=== PATIENT | female | born 1955 | race African-American/Black ===

== ENCOUNTER 2016-06-02 04:46 | Outpatient (CLI) ==
[2016-05-27 08:15] VITALS: BMI 28.4
== END 2016-06-02 04:47 ==
LOC: AMBL 04:46
PROVIDERS: ATTEND Emergency Medicine
DX: R06.02 Shortness of breath (principal); E11.9 Type 2 diabetes mellitus without complications; I10 Essential (primary) hypertension; I50.9 Heart failure, unspecified

== ENCOUNTER 2016-06-22 12:23 | Outpatient (RCR) ==
[2016-05-27 08:15] VITALS: BMI 28.4
[2016-06-22 13:11] VITALS: BP 128/62
== END 2016-06-28 ==
LOC: PUL.REHAB 12:23
PROVIDERS: ATTEND Physician Assistant
DX: R06.02 Shortness of breath (principal)

== ENCOUNTER 2016-06-29 07:34 | Outpatient (RCR) ==
[2016-05-27 08:15] VITALS: BMI 28.4
[2016-07-20 10:40] VITALS: BP 128/60
== END 2016-07-26 ==
LOC: PUL.REHAB 07:34
PROVIDERS: ATTEND Physician Assistant
DX: R06.02 Shortness of breath (principal)

== ENCOUNTER 2016-07-03 01:47 | Inpatient (IN) ==
[2016-07-03] MEDS ORDERED: LASIX IVP STA (01:49)
[2016-07-03] MEDS ORDERED: XOPENEX 1.25 MG NEB STA (01:50)
[2016-07-03 02:02] LABS: BASOPHILS # (AUTO) 0.1 K/uL (0-0.2); EOSINOPHILS # (AUTO) 0.1 K/ul (0.0-0.7); EOSINOPHILS % (AUTO) 2.1 % (0.0-7.0); HEMATOCRIT 39.3 % (37.0-47.0); HEMOGLOBIN 13.1 g/dl (12.0-16.0); IMMATURE GRANULOCYTE % (AUTO) 0.3 % (0.0-5.0); LYMPHOCYTES # (AUTO) 2.6 K/uL (0.60-3.4); MEAN CORPUSCULAR HEMOGLOBIN 28.7 pg (27.0-31.0); MEAN CORPUSCULAR HGB CONC 33.3 (31.8-35.4); MONOCYTES # (AUTO) 0.4 K/uL (0.4-2.0); MONOCYTES % (AUTO) 6.7 (0-10); NEUTROPHILS # (AUTO) 2.9 K/ul (2.0-6.9); NEUTROPHILS % (AUTO) 47.9; PLATELET COUNT 240 10^3/uL (140-440); RED BLOOD COUNT 4.57 10^6/ul (4.20-5.40)
[2016-07-03 02:12] VITALS: BMI 29.8
[2016-07-03 02:21] LABS: ABG PCO2 30.8 mmHg (35-45); ABG PH 7.48 (7.35-7.45)
[2016-07-03 02:22] LABS: ABG BASE EXCESS -1 (-2.0-2.0); ABG HCO3 22.9 (22.0-26.0); ABG TCO2 24 (22.0-28.0)
[2016-07-03 02:39] LABS: ALBUMIN 3.8 g/dL (3.4-5.0); ALBUMIN/GLOBULIN RATIO 1.15; ANION GAP 16.5; BILIRUBIN,TOTAL 0.98 mg/dL (0.00-1.20); BUN/CREATININE RATIO 26.19; CALCIUM 9.3 mg/dL (8.2-10.2); CREATININE 0.84 mg/dL (0.60-1.30); POTASSIUM 3.5 mmol/L (3.5-5.10); TOTAL PROTEIN 7.1 g/dL (6.4-8.2); TROPONIN I 0.058 ng/ml (0.0000-0.4000)
[2016-07-03 02:40] LABS: CREATINE KINASE MB 3.2 ng/ml (0.0-3.6)
--- NOTE | 2016-07-03 02:53 | CT ---
EXAM: CT chest without intravenous contrast 07/03/2016. Sagittal and coronal reformatted images ob tained HISTORY: Shortness of a air COMPARISON: 05/28/2016 FINDINGS: Mild cardiomegaly. No pericardial effusion. Small to moderate bilateral pleural effusions. Interlobular septal thickening most compatible with diffuse pulmonary edema. Diffuse bronchial wall thickening. This may also relate to pulmonary edema. Superimposed bronchiti s/bronchiolitis not excluded. No focal pulmonary consolidation. No pneumothorax. IMPRESSION: 1. Mild cardiomegaly. 2. Small to moderate bilateral pleural effusions. 3. Diffuse pulmonary edema. 4. Diffuse bronchial wall thickening which may relate to edema. Bronchitis/bronchiolitis not exclu ded.
--- NOTE | 2016-07-03 03:31 | ED.PDOC ---
General ED Provider: Dr. JEFE HOLM-ER Chief Complaint: Shortness of Air Stated Complaint: im sob--i think im holding fluid again Time Seen by Physician: 03:29 Mode of Arrival: Walk-In Information Source: Patient Exam Limitations: No limitations Primary Care Provider: TONY KOEEFE Nursing and Triage Documentation Reviewed and Agree: Yes Respiratory Complaint Exam - Shortness of Air Complaint/Exam Onset/Duration: several hours Symptoms Are: Still present Timing: Constant Initial Severity: Moderate Current Severity: None Character: Reports: Dyspnea at rest, Dyspnea on exertion Aggravating: Reports: None Alleviating: Reports: None Associated Signs and Symptoms: Reports: Wheezing, Edema, Labored breathing History of Healthcare-Acquired Pneumonia: No Pulmonary Embolism Risk Factors: Reports: None Cardiac Risk Factors: Reports: Hypertension Pseudomonas Risk Factors: Reports: Chronic Lung Disease Home Oxygen Use: No Recent Stress Test: No Recent Echo/LV Function: No Respiratory Distress: Mild Stridor Present: No Tracheal Deviation: No Subcutaneous Emphysema: No Accessory Muscle Use: Yes Retractions: Intercostal Diminished Breath Sounds: No Prolonged Expiratory Phase: No Unable to Speak Full Sentences: No Fatigue: Yes Leg Swelling: Yes Laurence's Sign Present: No Grunting Respirations: No Kussmaul Respirations: No Differential Diagnoses: CHF, COPD Exacerbation, Pneumonia, Bronchitis Quality Indicator For Non-Traumatic Chest Pain/Syncope: EKG Performed Review of Systems - Review Of Systems Constitutional: Reports: No symptoms Eyes: Reports: No symptoms Ears, Nose, Mouth, Throat: Reports: No symptoms Respiratory: Reports: Orthopnea, Short of air Cardiac: Reports: No symptoms GI: Reports: No symptoms : Reports: No symptoms Musculoskeletal: Reports: No symptoms Skin: Reports: No symptoms Neurological: Reports: No symptoms Endocrine: Reports: No symptoms Hematologic/Lymphatic: Reports: No symptoms All Other Systems: Reviewed and Negative Past Medical History - Past Medical History Previously Healthy: No Endocrine: Reports: DM 2 Cardiovascular: Reports: CAD, Hypertension, CHF Respiratory: Reports: Pneumonia Hematological: Reports: None Gastrointestinal: Reports: None Genitourinary: Reports: None Neuro/Psych: Reports: None Musculoskeletal: Reports: None Cancer: Reports: None Last Menstrual Period: HYSTERECTOMY - Surgical History General Surgical History: Reports: None, Hysterectomy (partial hystrectomy ), Cholecystectomy. Denies: CABG (hearth cath ) - Family History Family History: Reports: None - Social History Smoking Status: Former smoker Hx Substance Use: No Alcohol Screening: None Lives: With family - Immunizations Tetanus Shot up to Date: No Physical Exam - Physical Exam Appearance: Well-appearing, No pain distress, Well-nourished Eyes: EVGENY, EOMI, Conjunctiva clear ENT: Ears normal, Nose normal, Oropharynx normal Neck: Supple Respiratory: Airway patent, Breath sounds equal, Crackles, Retractions Cardiovascular: RRR GI/: Soft, Nontender, No masses, Bowel sounds normal, No Organomegaly Musculoskeletal: Normal strength, ROM intact, No edema, No calf tenderness Skin: Warm, Dry, Normal color Neurological: Sensation intact, Motor intact, Reflexes intact, Cranial nerves intact, Alert, Oriented Psychiatric: Affect appropriate Interpretation - Radiology Interpretation Radiology Interpretation By: Radiologist Radiology Results: Positive Exam Interpreted: CT Scan - EKG Interpretation Time of EKG #1: 03:31 Rate: Normal Rhythm: Sinus Ectopy: None Hindman: NL ST Segment: Normal Re-Evaluation - Re-Evaluation Time of Re-Evaluation: 03:31 Status: Improved (voided several hundred cc) Vital Signs Stable: Yes Pain Level: 0 Appearance: NAD Lungs: Clear Skin: Warm and Dry Neuro: Alert and Oriented X3 CV: RRR Physician Notification - Case Discussed Physician Notified: dr agarwal Time of Notification: 03:32 Critical Care Note - Critical Care Note Total Time (mins): 0 Course - Course Hematology/Chemistry: 07/03/16 02:01 07/03/16 02:01 Orders, Labs, Meds: Lab Review 07/03/16 07/03/16 01:48 02:01 WBC 6.10 RBC 4.57 Hgb 13.1 Hct 39.3 MCV 86.0 MCH 28.7 MCHC 33.3 RDW Coeff of Robbie 14.1 Plt Count 240 Immature Gran % (Auto) 0.3 Neut % (Auto) 47.9 Lymph % (Auto) 42.0 [place] % (Auto) 6.7 Eos % (Auto) 2.1 Baso % (Auto) 1.0 Immature Gran # (Auto) 0.0 Neut # 2.9 Lymph # 2.6 [place] # 0.4 Eos # 0.1 Baso # 0.1 D-Dimer 1.74 Puncture Site Rb O2 Saturation 91.0 L ABG pH 7.48 H ABG pCO2 30.8 L ABG pO2 56.0 L* ABG HCO3 22.9 ABG Total CO2 24 ABG Base Excess -1 [place] Test + FiO2 % 21.0 Sodium 141 Potassium 3.5 Chloride 105 Carbon Dioxide 23 Anion Gap 16.5 BUN 22 H Creatinine 0.84 Estimated GFR (MDRD) 84.00 BUN/Creatinine Ratio 26.19 Glucose 126 H Calcium 9.3 Total Bilirubin 0.98 AST 53 H ALT 46 Alkaline Phosphatase 63 Total Creatine Kinase 418 CK-MB (CK-2) 3.2 CK-MB (CK-2) % 0.36701 Troponin I 0.0580 B-Natriuretic Peptide 495 H Total Protein 7.1 Albumin 3.8 Globulin 3.3 Albumin/Globulin Ratio 1.15 Orders Category Date Time Status ABG DRAW REQUEST Stat CARDIO 07/03/16 01:48 Ordered EKG-(ED ONLY) Stat CARDIO 07/03/16 01:48 Ordered NEBULIZER TREATMENT Stat CARDIO 07/03/16 01:50 Ordered IV [ED IV/MEDIPORT/POWERPORT] .ONCE EMERGENCY 07/03/16 01:49 Active ABG Stat LAB 07/03/16 01:48 Completed BNP [B-TYPE NATRIURETIC PEPTIDE] Stat LAB 07/03/16 02:01 Completed CBC W/ AUTO DIFF Stat LAB 07/03/16 02:01 Completed COMPREHENSIVE METABOLIC PANEL Stat LAB 07/03/16 02:01 Completed CREATINE KINASE Stat LAB 07/03/16 02:01 Completed D-DIMER Stat LAB 07/03/16 02:01 Completed TROPONIN I Stat LAB 07/03/16 02:01 Completed TSH [THYROID STIMULATING HORMONE] Stat LAB 07/03/16 03:28 Ordered 0.9 % Sodium Chloride [Saline Flush] MEDS 07/03/16 01:49 Ordered 1 syr IVF PRN PRN Furosemide [Lasix] MEDS 07/03/16 01:49 Discontinued 80 mg IVP ONCE STA Levalbuterol HCl [Xopenex 1.25 mg] MEDS 07/03/16 01:50 Discontinued 1 vial NEB ONCE STA CT CHEST W/O CONTRAST Stat RADS 07/03/16 01:49 Completed Medications Generic Name Dose Route Start Last Admin Trade Name Freq PRN Reason Stop Dose Admin Sodium Chloride 1 syr 07/03/16 01:49 Saline Flush IVF PRN PRN To flush IV Discontinued Medications Generic Name Dose Route Start Last Admin Trade Name Freq PRN Reason Stop Dose Admin Furosemide 80 mg 07/03/16 01:49 07/03/16 02:39 Lasix IVP 07/03/16 01:50 80 mg ONCE STA Administration Levalbuterol HCl 1 vial 07/03/16 01:50 07/03/16 02:14 Xopenex 1.25 Mg NEB 07/03/16 01:51 1 vial ONCE STA Administration Vital Signs: Temp Pulse Resp BP Pulse Ox 07/03/16 02:07 98.6 F 98 H 20 161/112 H 96 Departure - Departure Time of Disposition: 03:32 Disposition: ADMITTED INPATIENT Discharge Problem: Acute respiratory failure Qualifiers: Respiratory failure complication: hypoxia Qualifier Code: (J96.01) Acute respiratory failure with hypoxia Pulmonary edema Qualifiers: Chronicity: acute Qualifier Code: (J81.0) Acute pulmonary edema Instructions: Pulmonary Edema (ED), Heart Failure (ED) Condition: Stable Pt referred to PMD for follow-up: No Allergies/Adverse Reactions: Allergies codeine Adverse Reaction (Verified 07/03/16 02:12) Iodinated Contrast Media - Oral and [Iodinated Contrast Media - IV Dye] Adverse Reaction (Verified 07/03/16 02:12) levofloxacin [From Levaquin] Adverse Reaction (Verified 07/03/16 02:12) Home Medications: Ambulatory Orders Aspirin [Aspirin EC] 81 mg PO DAILYWM 03/17/15 Furosemide [Lasix Tab] 40 mg PO DAILY 03/17/15 Glipizide [Glucotrol] 10 mg PO DAILY 03/17/15 Insulin Glargine,Hum.rec.anlog [Lantus] 50 unit SUBCUT BEDTIME 03/17/15 Metformin HCl [Fortamet] 500 mg PO BID 03/17/15 Quinapril HCl 40 mg PO DAILY 03/17/15 Ipratropium/Albuterol Sulfate [Combivent Respimat Inhal [place]] 4 gm IH QID PRN # 1 aer.w.adap 05/05/16 Albuterol Sulfate [Ventolin Hfa] 18 gm IH QID PRN 05/27/16 Carvedilol [Coreg] 3.125 mg PO BIDWM 05/27/16 Mometasone Furoate [Nasonex] 17 gm NS DAILY PRN 05/27/16 Potassium Chloride [Klor-Con 10] 10 meq PO DAILY 05/27/16 Cefdinir [Omnicef] 300 mg PO BID #14 capsule 05/28/16 Tramadol HCl 50 mg PO Q6HR PRN #10 tablet 05/28/16 Disposition Discussed With: Patient
[2016-07-03] MEDS ORDERED: PROAIR HFA IH PRN (03:37)
[2016-07-03] MEDS: ULTRAM PO PRN (04:52)
[2016-07-03] MEDS ORDERED: LASIX ONE (06:06)
[2016-07-03] MEDS: LASIX IVP SCH (06:16)
[2016-07-03] MEDS ORDERED: GLUCOTROL PO SCH (08:00)
[2016-07-03] MEDS: COREG PO SCH ×2 (08:23→17:00)
[2016-07-03] MEDS: OMNICEF PO SCH ×2 (08:23→20:32)
[2016-07-03] MEDS: ASPIRIN EC PO SCH (08:23)
[2016-07-03] MEDS: GLUCOPHAGE PO SCH ×2 (08:23→17:01)
[2016-07-03] MEDS: LOVENOX SUBCUT SCH (08:24)
[2016-07-03] MEDS: ACCUPRIL PO SCH (08:24)
[2016-07-03] MEDS ORDERED: NON-FORMULARY MEDICATION (Metformin Hcl [Fortamet] 500 MG) PO SCH (09:00)
[2016-07-03] MEDS ORDERED: NON-FORMULARY MEDICATION (Potassium Chloride [Klor-Con 10] 10 MEQ) PO SCH ×22 (09:00)
[2016-07-03] MEDS ORDERED: NON-FORMULARY MEDICATION (Glipizide [Glucotrol] 10 MG) PO SCH ×22 (09:00)
[2016-07-03] MEDS ORDERED: MICRO-K CAP PO SCH (09:00)
[2016-07-03 10:09] LABS: BASOPHILS % (AUTO) 0.6 % (0.0-3.0); EOSINOPHILS # (AUTO) 0.1 K/ul (0.0-0.7); EOSINOPHILS % (AUTO) 2.3 % (0.0-7.0); HEMATOCRIT 38.1 % (37.0-47.0); HEMOGLOBIN 12.5 g/dl (12.0-16.0); IMMATURE GRANULOCYTE % (AUTO) 0.3 % (0.0-5.0); LYMPHOCYTES # (AUTO) 1.2 K/uL (0.60-3.4); LYMPHOCYTES % (AUTO) 35.2 (10.0-50.0); MEAN CORPUSCULAR HEMOGLOBIN 28.2 pg (27.0-31.0); MEAN CORPUSCULAR HGB CONC 32.8 (31.8-35.4); MONOCYTES # (AUTO) 0.3 K/uL (0.4-2.0); MONOCYTES % (AUTO) 8.1 (0-10); NEUTROPHILS # (AUTO) 1.9 K/ul (2.0-6.9); NEUTROPHILS % (AUTO) 53.5; PLATELET COUNT 230 10^3/uL (140-440); RED BLOOD COUNT 4.43 10^6/ul (4.20-5.40); WHITE BLOOD COUNT 3.47 K/ul (4.6-10.2)
[2016-07-03 10:48] LABS: ALBUMIN 3.7 g/dL (3.4-5.0); ALBUMIN/GLOBULIN RATIO 1.16; ANION GAP 16.1; BILIRUBIN,TOTAL 1.34 mg/dL (0.00-1.20); BUN/CREATININE RATIO 17.34; CALCIUM 8.9 mg/dL (8.2-10.2); CREATINE KINASE MB 2.4 ng/ml (0.0-3.6); CREATININE 0.98 mg/dL (0.60-1.30); POTASSIUM 3.1 mmol/L (3.5-5.10); TOTAL PROTEIN 6.9 g/dL (6.4-8.2); TROPONIN I 0.04 ng/ml (0.0000-0.4000)
[2016-07-03] MEDS: DECADRON 4 MG/ML SDV IM SCH (14:01)
[2016-07-03] MEDS: XOPENEX 1.25 MG NEB SCH ×2 (18:14→23:07)
[2016-07-03 20:21] LABS: TROPONIN I 0.026 ng/ml (0.0000-0.4000)
[2016-07-03] MEDS: LANTUS SUBCUT SCH (20:33)
[2016-07-03] MEDS: ALDACTONE PO SCH (20:40)
[2016-07-04] MEDS: XOPENEX 1.25 MG NEB SCH ×4 (05:19→23:03)
[2016-07-04 05:25] LABS: BASOPHILS % (AUTO) 0.1 % (0.0-3.0); EOSINOPHILS % (AUTO) 0.1 % (0.0-7.0); HEMATOCRIT 38.3 % (37.0-47.0); HEMOGLOBIN 12.4 g/dl (12.0-16.0); IMMATURE GRANULOCYTE % (AUTO) 0.4 % (0.0-5.0); LYMPHOCYTES # (AUTO) 1.1 K/uL (0.60-3.4); LYMPHOCYTES % (AUTO) 16.5 (10.0-50.0); MEAN CORPUSCULAR HGB CONC 32.4 (31.8-35.4); MEAN CORPUSCULAR VOLUME 86.5 fl (81.0-99.0); MONOCYTES # (AUTO) 0.4 K/uL (0.4-2.0); MONOCYTES % (AUTO) 6.4 (0-10); NEUTROPHILS # (AUTO) 5.2 K/ul (2.0-6.9); NEUTROPHILS % (AUTO) 76.5; PLATELET COUNT 241 10^3/uL (140-440); RED BLOOD COUNT 4.43 10^6/ul (4.20-5.40); WHITE BLOOD COUNT 6.83 K/ul (4.6-10.2)
[2016-07-04] MEDS: LASIX IVP SCH (05:47)
[2016-07-04 05:48] LABS: ALBUMIN 3.5 g/dL (3.4-5.0); ALBUMIN/GLOBULIN RATIO 1.06; BILIRUBIN,TOTAL 0.84 mg/dL (0.00-1.20); BUN/CREATININE RATIO 28.91; CALCIUM 9.5 mg/dL (8.2-10.2); CREATININE 0.83 mg/dL (0.60-1.30); TOTAL PROTEIN 6.8 g/dL (6.4-8.2)
[2016-07-04] MEDS: ULTRAM PO PRN ×2 (07:09→16:29)
[2016-07-04] MEDS: ACCUPRIL PO SCH (08:20)
[2016-07-04] MEDS: GLUCOPHAGE PO SCH ×2 (08:20→17:16)
[2016-07-04] MEDS: ASPIRIN EC PO SCH (08:20)
[2016-07-04] MEDS: OMNICEF PO SCH ×2 (08:20→21:49)
[2016-07-04] MEDS: ALDACTONE PO SCH (08:20)
[2016-07-04] MEDS: COREG PO SCH ×2 (08:20→17:16)
[2016-07-04] MEDS: DECADRON 4 MG/ML SDV IM SCH (08:21)
[2016-07-04] MEDS: LOVENOX SUBCUT SCH (08:21)
[2016-07-04 09:01] LABS: CHOL/HDL RATIO 3.9 (4.5-5.5)
--- NOTE | 2016-07-04 09:14 | HP ---
CHIEF COMPLAINT: Shortness of breath SOURCE OF HISTORY: The patient HISTORY OF PRESENT ILLNESS: The patient claimed that she began experiencing some shortness of breath about two days prior to presentation to the emergency room.She was on at 2: 07am. The patient was felt to have congestive heart failure by history, physical exam as well as CT scan and labs, elevated BNP. The patient was Lasix 80mg intervenously, Nebulizer consisting of Xopenex. The patient had a good amount of diaphoresis according to Dr. Santos who was working at the Emergency room. He felt that the patient needed admission for further observation and treatment and diagnosis. PAST PERSONAL HISTORY: Hypertension Diabetes Mellitus Congestive heart failure COPD exacerbation Pneumonia Total abdominal hysterectomy Cardiac catheterization Cholecystectomy Cataract surgery bilateral FAMILY HISTORY: Father had [place] Mother had CVA SOCIAL HISTORY: The patient is single with grown children. Previous smoker but had stopped some time ago. Denied any alcohol use or drug abuse. MEDICATIONS: [id number] daily Glipizide 10mg PO daily Lantus insulin 50unit SUBCUT at bedtime Lasix 40mg daily Aspirin 81mg daily Metformin 500mg twice a day Combivent Respimat one inhalation four times a day PRN Coreg 3.125mg PO twice a day Albuterol Sulfate one puff four times a day as needed KCL 10meq daily Nasonex two sprays through each nostril daily Tramadol 50mg PO Q 6 hours PRN, new prescription #10 tablets Omnicef 300mg capsule twice a day, #14. ALLERGIES: Codeine Iodinated contrast media Levofloxacin We need to record the reaction REVIEW OF SYSTEMS: CONSTITUTIONAL: The patient is alert with no fever and no chills and somewhat fatigue. 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 Denies any ataxia, denies any history of seizures or loss of consciousness. VISUAL: Denies any blurred vision, double vision or transient loss of vision. AUDITORY: Hearing it adequate. Denies any ringing in her ear, pain or drainage. RESPIRATORY: The patient has shortness of breath with exertion CARDIOVASCULAR: Denies any chest pain or chest oppression. GASTROINTESTINAL: The patient had nausea and vomited initially. No abdominal pain GENITOURINARY: The patient denies any pain, frequency or urgency of urination MUSCULOSKELETAL: Denies any significant joint pains. ENDOCRINE: Negative, except the patient is diabetic and on medication INTEGUMENT: No rash or pleuritis HEMATOLOGIC: No signs of prolonged bleed in the past and no easy bruising. PSYCHIATRIC: Affect is normal. PHYSICAL EXAMINATION: GENERAL: The patient is a 60 year old black female admitted to the hospital because of shortness of breath which is increasing. The patient during the course of the workup was felt to have congestive heart failure and was treated accordingly. The patient had improved while in the emergency room with the treatment. She was then admitted for further treatment and diagnosis VITAL SIGNS: Temperature 97.9, pulse 79, blood pressure 115/68, respiratory rate 20 and pulse ox 100% at 2 liters. HEAD: Unremarkable. FACE: Symmetrical and equal with no facial weakness. No remarkable tenderness in the frontal maxillary sinus area to palpation under pressure. EYES: Pupils equal/reactive to light. 3mm. Conjunctivae slightly pale. Sclerae not icteric. MOUTH: Unremarkable THROAT: No inflammation, tumors or exudate. NECK: No masses. No bruit. No tenderness. No rigidity. CHEST: Symmetric and equal with good expansion. LUNGS: Breaths sounds are heard in both sides, diminished. Some occasional rales of the left base. Rales were described in both side at the emergency room. HEART: Audible and regular with good tones. No murmurs. BREASTS: Not examined ABDOMEN: Soft, with no remarkable tenderness. No guarding, bowel sounds are active, no masses palpable. EXTERNAL GENITALIA: Not examined RECTAL: Not performed LOWER EXTREMITIES: Symmetrical and equal with no edema. Posterior tibials are absent and anterior are present on both feet. UPPER EXTREMITIES: Symmetrical and equal. ASSESSMENT: 1. Congestive heart failure, improved 2. History fo COPD 3. History of chronic tobacco use and abuse, stopped 4. History of diabetes mellitus, type 2 with insulin added to the regimen 5. Hypertension 6. History of cholecystectomy 7. History of total abdominal hysterectomy 8. History of pneumonia. PROGNOSIS: Guarded. MTDD
[2016-07-04 09:48] LABS: ABG BASE EXCESS 0 (-2.0-2.0); ABG HCO3 24.6 (22.0-26.0); ABG PCO2 37.6 mmHg (35-45); ABG PH 7.424 (7.35-7.45); ABG TCO2 26 (22.0-28.0)
--- NOTE | 2016-07-04 10:04 | DI ---
EXAM: PA and lateral views of the chest HISTORY: Cough, congestion COMPARISON: 05/27/2016 chest x-ray, 07/03/2016 CT FINDINGS: There is slight blunting of the right costophrenic angle. There may be a trace left pleural effusio n, seen on the lateral view. Findings of primarily interstitial edema seen on prior CT are not visu alized in this exam. No focal consolidation or pneumothorax is seen. The cardiomediastinal silhouette is within normal limits. Cholecystectomy surgical clips are seen. IMPRESSION: Interval resolution of the pulmonary edema identified on prior CT. Trace right and possible trace left pleural effusions, also decreased.
[2016-07-04 20:16] LABS: BILIRUBIN,URINE Negative (NEGATIVE); KETONES,URINE Negative (NEGATIVE); LEUKOCYTE ESTERASE ,URINE Negative (NEGATIVE); NITRITE,URINE Negative (NEGATIVE); PROTEIN,URINE Negative (NEGATIVE); URINE, BLOOD Negative (NEGATIVE)
[2016-07-04 20:18] LABS: ADD URINE MICROSCOPIC NO
[2016-07-04] MEDS: LANTUS SUBCUT SCH (21:49)
[2016-07-05 04:45] LABS: BASOPHILS % (AUTO) 0.4 % (0.0-3.0); EOSINOPHILS # (AUTO) 0.1 K/ul (0.0-0.7); EOSINOPHILS % (AUTO) 0.8 % (0.0-7.0); HEMATOCRIT 35.3 % (37.0-47.0); HEMOGLOBIN 11.6 g/dl (12.0-16.0); IMMATURE GRANULOCYTE % (AUTO) 0.3 % (0.0-5.0); LYMPHOCYTES # (AUTO) 2.4 K/uL (0.60-3.4); LYMPHOCYTES % (AUTO) 30.5 (10.0-50.0); MEAN CORPUSCULAR HEMOGLOBIN 28.5 pg (27.0-31.0); MEAN CORPUSCULAR HGB CONC 32.9 (31.8-35.4); MEAN CORPUSCULAR VOLUME 86.7 fl (81.0-99.0); MONOCYTES # (AUTO) 0.5 K/uL (0.4-2.0); MONOCYTES % (AUTO) 6.4 (0-10); NEUTROPHILS # (AUTO) 4.9 K/ul (2.0-6.9); NEUTROPHILS % (AUTO) 61.6; PLATELET COUNT 229 10^3/uL (140-440); RED BLOOD COUNT 4.07 10^6/ul (4.20-5.40); WHITE BLOOD COUNT 7.96 K/ul (4.6-10.2)
[2016-07-05 05:03] LABS: ALBUMIN 3.4 g/dL (3.4-5.0); ALBUMIN/GLOBULIN RATIO 1.1; BILIRUBIN,TOTAL 0.63 mg/dL (0.00-1.20); BUN/CREATININE RATIO 34.17; CALCIUM 9.2 mg/dL (8.2-10.2); CREATININE 0.79 mg/dL (0.60-1.30); TOTAL PROTEIN 6.5 g/dL (6.4-8.2)
[2016-07-05] MEDS: XOPENEX 1.25 MG NEB SCH ×2 (05:13→11:07)
[2016-07-05] MEDS: LASIX IVP SCH (05:54)
[2016-07-05] MEDS: OMNICEF PO SCH (08:38)
[2016-07-05] MEDS: ASPIRIN EC PO SCH (08:38)
[2016-07-05] MEDS: GLUCOPHAGE PO SCH (08:38)
[2016-07-05] MEDS: COREG PO SCH (08:39)
[2016-07-05] MEDS: ACCUPRIL PO SCH (08:39)
[2016-07-05] MEDS: DECADRON 4 MG/ML SDV IM SCH (08:40)
[2016-07-05] MEDS: LOVENOX SUBCUT SCH (08:40)
[2016-07-05] MEDS: ALDACTONE PO SCH (08:40)
--- NOTE | 2016-07-05 09:30 | PN ---
DATE OF VISIT: 07/04/16 The patient today is feeling much better without any shortness of breath. Her general appearance is good. She is not dyspneic, nor tachypneic and no cyanosis. This patient refuses to have a echocardiogram since she had a month ago. I did look into it and indeed she had one May 28, 2016 and the ejection fraction was 50 to 55%. She had a hypokinetic left ventricle inferior wall, posteriorly. The patient's BNP has returned towards normal at 158 from 495 yesterday. Arterial blood gases with FIO2 21, now has oxygen saturation 97, pH 7.424 and was 7.48 yesterday. Respiratory alkalosis. PCO2 37, PO2 93 and 56 yesterday. Bicarbonate 24.6, 22.9 yesterday. CO2 26, 24 yesterday. LUNGS: Today, has no rales and no wheezing. This patient had stopped smoking sometime ago. VITAL SIGNS: At 10 a.m., temperature 98, pulse 66, blood pressure 111/67, respiratory rate 20, oxygen saturation 98 at room air. The potassium was discontinued with the addition of Aldactone to the regimen. 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 This patient had a previous admission for heart failure several months ago. It would interesting to know if the ejection fraction has decreased and maybe she would be a candidate for Entresto. The patient has complained of pain on the right flank area today with reason unknown. She claims that she may have twisted it while in the hospital. We will try to obtain a urinalysis to see if we could narrow the reasons for the pain. I did see the patient about 12:45 p.m. KATINA
[2016-07-05 10:38] VITALS: BP 108/62; TEMP 97.8
--- NOTE | 2016-07-05 11:44 | CONS ---
DATE OF SERVICE: 07/04/16 - CONSULT FOLLOWUP SUBJECTIVE: This 60 year old BLACK/ F was hospitalized 07/03/16. The patient is hospitalized with acute pulmonary edema and acute respiratory failure. The patient is practically asymptomatic with no CHF symptoms at all, lying comfortably and is oriented times three. REVIEW OF SYSTEMS: CONSTITUTIONAL: No night sweats. No fatigue, malaise, lethargy. No fever or chills. HEENT: Eyes: No visual changes. No eye pain. No eye discharge. ENT: No runny nose. No epistaxis. No sinus pain. No odynophagia. No congestion. RESPIRATORY: No cough, no congestion. No hemoptysis. CARDIOVASCULAR: No angina symptoms. No CHF symptoms. No atypical chest pain for CAD. No palpitations. No shortness of breath at rest. GASTROINTESTINAL: No abdominal pain. No nausea or vomiting. No diarrhea or constipation. No hematemesis. No hematochezia. GENITOURINARY: No urgency. No frequency. No dysuria. No hematuria. No obstructive symptoms. No discharge. No pain. No significant abnormal bleeding. MUSCULOSKELETAL: No musculoskeletal pain; no joint swelling. NEUROLOGICAL: Awake, alert, oriented to time, place and person. No headache. No neck pain. No syncope. No seizures. No dizziness. PSYCHIATRIC: Not anxious. No depression. No suicidal thoughts. No homicidal thoughts. SKIN: No rash. No lesions. No wounds. ENDOCRINE: No unexplained weight loss. No weight gain. HEMATOLOGIC/LYMPHATIC: No anemia. No purpura. No petechiae. No prolonged or excessive bleeding. No palpable lymph nodes. PHYSICAL EXAMINATION: GENERAL: The patient is awake, alert and oriented, lying in bed in no distress. VITAL SIGNS: Temperature 97.4 F, Pulse 86, Respiratory Rate 20, BP 122/85, Pulse Ox 96% HEENT: Head normocephalic, atraumatic. Eyes: Extraocular muscles are intact. Pupils are equal, round and reactive to light and accommodation. Ears: No lesions. Nose appeared normal. Throat: No exudate or erythema. NECK: Supple. No JVD, no carotid bruit. No lymphadenopathy or thyromegaly. LUNGS: Decreased breath sounds. Clear to auscultation. Percussion note normal. Chest symmetrical. HEART: S1, S2, no S3. No murmurs. No cyanosis or clubbing. No ascites. Pulses: Dorsalis pedis and posterior tibial pulses +1 to +2 both sides. ABDOMEN: Soft. Non-tender. Bowel sounds active. No CVA tenderness. No mass felt. EXTREMITIES: No edema. Full range of motion of all extremities, equal. NEUROLOGIC: No focal deficit. Cranial nerves II through XII are grossly intact. No headache, no double vision or headache. SKIN: Not dry. Intact. Turgor-normal. LYMPHATIC: No palpable lymph nodes/no lymphedema. MUSCULOSKELETAL: Normal joints with no swelling. Muscle tone is normal. LAB REVIEW: 07/04/16 04:55 07/04/16 04:55 07/04/16 04:55: WBC 6.83, RBC 4.43, Hgb 12.4, Hct 38.3, MCV 86.5, MCH 28.0, MCHC 32.4, RDW Coeff of Robbie 13.9, Plt Count 241, Immature Gran % (Auto) 0.4, Neut % (Auto) 76.5, Lymph % (Auto) 16.5, [place] % (Auto) 6.4, Eos % (Auto) 0.1, Baso % (Auto) 0.1, Immature Gran # (Auto) 0.0, Neut # 5.2, Lymph # 1.1, [place] # 0.4, Eos # 0.0, Baso # 0.0, Sodium 140, Potassium 4.0, Chloride 104, Carbon Dioxide 24, Anion Gap 16.0, BUN 24 H, Creatinine 0.83, Estimated GFR (MDRD) 85.00, BUN/Creatinine Ratio 28.91, Glucose 160 H D, Calcium 9.5, Total Bilirubin 0.84, AST 27, ALT 41, Alkaline Phosphatase 60, B-Natriuretic Peptide 158 H, Total Protein 6.8, Albumin 3.5, Globulin 3.3, Albumin/Globulin Ratio 1.06 07/03/16 19:43: Total Creatine Kinase 311, CK-MB (CK-2) 2.0, CK-MB (CK-2) % 0.65532, Troponin I 0.0260 07/03/16 09:55: WBC 3.47 L, RBC 4.43, Hgb 12.5, Hct 38.1, MCV 86.0, MCH 28.2, MCHC 32.8, RDW Coeff of Robbie 14.0, Plt Count 230, Immature Gran % (Auto) 0.3, Neut % (Auto) 53.5, Lymph % (Auto) 35.2, [place] % (Auto) 8.1, Eos % (Auto) 2.3, Baso % (Auto) 0.6, Immature Gran # (Auto) 0.0, Neut # 1.9 L, Lymph # 1.2, [place] # 0.3 L, Eos # 0.1, Baso # 0.0, Sodium 144, Potassium 3.1 L, Chloride 103, Carbon Dioxide 28, Anion Gap 16.1, BUN 17, Creatinine 0.98, Estimated GFR (MDRD ) 70.00, BUN/Creatinine Ratio 17.34, Glucose 109, Hemoglobin A1c 7.2 H, Calcium 8.9, Total Bilirubin 1.34 H, AST 42 H, ALT 45, Alkaline Phosphatase 60, Total Creatine Kinase 354, CK-MB (CK-2) 2.4, CK-MB (CK-2) % 0.55864, Troponin I 0.0400 , Total Protein 6.9, Albumin 3.7, Globulin 3.2, Albumin/Globulin Ratio 1.16 ASSESSMENT: 1. Acute pulmonary edema respiratory failure resolved. 2. Chronic lung disease. 3. Hypertension. 4. Hypertension. 5. History of CHF. 6. Diabetes mellitus. PLAN: 1. Continue same treatment. 2. Lipid profile. 3. Try to get records involving echocardiogram and possibility of further workup. 4. Chest x-ray. 5. ABG on room air. Plan and coordination of the patient's care discussed in the presence of Adobe Developer and nurse. EDUCATION: Educated about medications take on regular basis. CONDITION: Stable SCRIBED BY: MAX MYERS Outside Maintenance Worker scribed while in presence of service performed by Dr. Cobb on 07/04/16 (0800) [facility]
--- NOTE | 2016-07-05 11:52 | PCM.CONS ---
CONSULTING PROVIDER: Dr. FRANCI TAYLOR ATTENDING PROVIDER: Dr. Brie DUFFY DATE OF SERVICE: 07/05/16 - CONSULT FOLLOWUP SUBJECTIVE: This 60 year old BLACK/ F was hospitalized 07/03/16. The patient is hospitalized with acute pulmonary edema. The patient has no symptoms of CHF or coronary insufficiency. She is up and about. Telemetry shows sinus rhythm, no acute changes. Arterial blood gases look fine. Chest x- ray showed improvement. REVIEW OF SYSTEMS: CONSTITUTIONAL: No night sweats. No fatigue, malaise, lethargy. No fever or chills. HEENT: Eyes: No visual changes. No eye pain. No eye discharge. ENT: No runny nose. No epistaxis. No sinus pain. No odynophagia. No congestion. RESPIRATORY: No cough, no congestion. No hemoptysis. CARDIOVASCULAR: No angina symptoms. No CHF symptoms. No atypical chest pain for CAD. No palpitations. No shortness of breath. GASTROINTESTINAL: No abdominal pain. No nausea or vomiting. No diarrhea or constipation. No hematemesis. No hematochezia. GENITOURINARY: No urgency. No frequency. No dysuria. No hematuria. No obstructive symptoms. No discharge. No pain. No significant abnormal bleeding. MUSCULOSKELETAL: No musculoskeletal pain; no joint swelling. NEUROLOGICAL: Awake, alert, oriented to time, place and person. No headache. No neck pain. No syncope. No seizures. No dizziness. PSYCHIATRIC: Not anxious. No depression. No suicidal thoughts. No homicidal thoughts. SKIN: No rash. No lesions. No wounds. ENDOCRINE: No unexplained weight loss. No weight gain. HEMATOLOGIC/LYMPHATIC: No anemia. No purpura. No petechiae. No prolonged or excessive bleeding. No palpable lymph nodes. PHYSICAL EXAMINATION: GENERAL: The patient is awake, alert and oriented sitting in bed in no distress. VITAL SIGNS: Temperature 97.4 F, Pulse 70, Respiratory Rate 20, BP 108/72, Pulse Ox 100% HEENT: Head normocephalic, atraumatic. Eyes: Extraocular muscles are intact. Pupils are equal, round and reactive to light and accommodation. Ears: No lesions. Nose appeared normal. Throat: No exudate or erythema. NECK: Supple. No JVD, no carotid bruit. No lymphadenopathy or thyromegaly. LUNGS: Clear to auscultation. Percussion note normal. Chest symmetrical. HEART: S1, S2, no S3. No murmurs. No cyanosis or clubbing. No ascites. Pulses: Dorsalis pedis and posterior tibial pulses +1 to +2 both sides. ABDOMEN: Soft. Non-tender. Bowel sounds active. No CVA tenderness. No mass felt. EXTREMITIES: No edema. Full range of motion of all extremities, equal. NEUROLOGIC: No focal deficit. Cranial nerves II through XII are grossly intact. No headache, no double vision or headache. SKIN: Not dry. Intact. Turgor-normal. LYMPHATIC: No palpable lymph nodes/no lymphedema. MUSCULOSKELETAL: Normal joints with no swelling. Muscle tone is normal. LAB REVIEW: 07/05/16 04:39 07/05/16 04:39 07/05/16 04:39: WBC 7.96, RBC 4.07 L, Hgb 11.6 L, Hct 35.3 L, MCV 86.7, MCH 28.5 , MCHC 32.9, RDW Coeff of Robbie 14.3, Plt Count 229, Immature Gran % (Auto) 0.3, Neut % (Auto) 61.6, Lymph % (Auto) 30.5, [place] % (Auto) 6.4, Eos % (Auto) 0.8, Baso % (Auto) 0.4, Immature Gran # (Auto) 0.0, Neut # 4.9, Lymph # 2.4, [place] # 0.5, Eos # 0.1, Baso # 0.0, Sodium 142, Potassium 4.0, Chloride 106, Carbon Dioxide 26, Anion Gap 14.0, BUN 27 H, Creatinine 0.79, Estimated GFR (MDRD) 90.00, BUN/Creatinine Ratio 34.17, Glucose 152 H, Calcium 9.2, Total Bilirubin 0.63, AST 16, ALT 30, Alkaline Phosphatase 50 L, B-Natriuretic Peptide 162 H, Total Protein 6.5, Albumin 3.4, Globulin 3.1, Albumin/Globulin Ratio 1.10 07/04/16 19:37: Urine Color Yellow, Urine Clarity Clear, Urine pH 5.0, Ur Specific [place] 1.015, Urine Protein Negative, Urine Glucose (UA) 2+, Urine Ketones Negative, Urine Blood Negative, Urine Nitrite Negative, Urine Bilirubin Negative, Urine Urobilinogen 0.2, Ur Leukocyte Esterase Negative 07/04/16 09:45: Puncture Site R brach, O2 Saturation 97.0, ABG pH 7.424, ABG pCO2 37.6, ABG pO2 93.0, ABG HCO3 24.6, ABG Total CO2 26, ABG Base Excess 0, [place] Test +, FiO2 % 21.0 07/04/16 06:00: Triglycerides 125, Cholesterol 184, LDL Cholesterol, Calc 112, VLDL Cholesterol 25, HDL Cholesterol 47, Cholesterol/HDL Ratio 3.9 L ASSESSMENT: 1. CHF resolved. 2. Hypertension controlled. 3. Catheterization report reviewed 5 to 6 years ago revealing normal coronary arteries. Echo showed normal LV contractility done a few weeks ago. RECOMMENDATIONS/PLAN: 1. Agree with the present medications. Plan and coordination of the patient's care discussed in the presence of Intelligence Chief and Nurse. CONDITION: Stable. ADDENDUM: 07/05/16 @ 8:11 p.m. The patient's condition is stable as indicated in the progress note with no symptoms of CHF. The patient's problem is noncompliance. The patient had an echocardiogram done at [facility] , which showed borderline left ventricular hypertrophy, enlarged left atrial cavity which was 4.6 cm in size, borderline left ventricular cavity enlargement like 5.7 cm with LV ejection fraction of 52 to 55%. Valves were normal. The patient had cardiac catheterization done on 07/05/[address] Sargent, which showed normal coronary arteries, LV ejection fraction of 45%. Heart hemodynamics were normal. SCRIBED BY: MAX MYERS, Ventilating Expert scribed while in presence of service performed by Dr. FRANCI TAYLOR on 07/05/16 ([id number])
[2016-07-06 08:10] LABS: C-PEPTIDE 3.7 ng/mL (1.1-4.4)
--- NOTE | 2016-07-06 12:06 | DS ---
PATIENT IDENTIFICATION: 60 year old black female was admitted to the hospital via the emergency room after treatment. This patient claimed to have increasing shortness of breath since about two days ago. The patient was diagnosed with acute pulmonary edema and was given 80 mg of Lasix at the emergency room. The patient was noted to have rales on both lung mcgee and the chest CT showed acute pulmonary edema changes and the BNP was elevated at 495. After the review of blood gases showed severe hypoxemia with respiratory alkalosis with oxygen saturation 91%, pH 7.48. This patient had a previous episode of congestive heart failure. 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 HOSPITAL COURSE: This patient was continued on her previous medication, plus Lasix IV 80 mg daily. The patient on the following day, 07/04/16, showed a marked improvement. She is no longer dyspneic, nor tachypneic and no shortness of breath. LUNGS: Clear to auscultation although with diminished breath sounds, more on the left lower base. No wheezing. HEART: Audible and regular with good tones. ABDOMEN: Nontender. LOWER EXTREMITIES: No edema. The BNP now is 158 from 495. The A1C is 7.2. The arterial blood gases with FIO2 21, the same as yesterday. It shows a pH of 7.424, oxygen saturation 97, PO2 93. The patient continues to ambulate around the room without any dyspnea. The patient did complain of some pain in the right lower lateral chest. The pain has resolved. The chest x-ray showed resolution of the acute pulmonary edema changes. A repeat BNP today, is 162, about the same as yesterday. The patient' s potassium chloride was discontinued after adding Aldactone. The patient's potassium on admission was 3.1 and yesterday was 4.0 and today is 4.0. The E GFR on admission was 70 and did rise to 85 on the second hospital day and 90 on the third day and discharge day. The patient at the time of discharge is alert, ambulatory with no dyspnea, nor tachypnea. VITAL SIGNS: At 10 o'clock this morning showed a temperature of 97.8, pulse of 68, blood pressure 108/62, respiratory rate 16, O2 saturation 98 on room air. She has movement of all extremities and ambulatory. NECK: No masses, no bruit. CHEST: Symmetrical and equal with good expansion. LUNGS: Clear to auscultation in both sides, although diminished. No wheezing. HEART: Audible and regular with good tones. LEGS: No tenderness in the calf muscles. PLAN: 1. This patient was advised that she needs to stop the potassium that she is taking since the medication that was added would give the potassium and it would raise the potassium if she would take the potassium supplement. 2. New medications: Aldactone given because of the congestive heart failure. This medication along with the Quinapril may increase the potassium level. High potassium maybe detrimental to her health. 3. I did advise her to see her primary provider this coming Monday, however she told me that her nurse clinical is only half a day on Monday and she would not be able to see the doctor. She claimed that she would be able to see the doctor on Monday. I then told her that she should keep that appointment. 4. I also advised her that she would have a blood test this coming Monday for me to see whether the potassium is rising and if it is significant that she would be notified. 5. She should continue the other medications, except the Omnicef also since there is obvious infectious process identified at this time. The patient showed good understanding and this advise and instructions was given in the presence of Marjorie Barry R.N. The patient refused to have an echocardiogram at this time, since she had one last month. The ejection fraction during that time was calculated at between 50 and 55. FINAL DIAGNOSES: 1. HEART FAILURE, IMPROVED 2. HISTORY OF HYPERTENSION 3. HISTORY OF DIABETES MELLITUS TYPE II 4. HISTORY OF CHRONIC OBSTRUCTIVE PULMONARY DISEASE 5. HISTORY OF CHRONIC TOBACCO USE AND ABUSE, STOPPED SEVERAL MONTHS AGO 6. HISTORY OF CHOLECYSTECTOMY 7. HISTORY OF TOTAL ABDOMINAL HYSTERECTOMY 8. HISTORY OF PNEUMONIA PROGNOSIS: Guarded. [facility]
--- NOTE | 2016-07-07 13:12 | PN ---
07/03/16: Level 5 07/04/16: Intermediate 07/05/16: Intermediate MTDD
--- NOTE | 2016-07-07 14:09 | CONS ---
DATE OF CONSULTATION: 07/03/16 REASON FOR CONSULTATION: Evaluation for onset of acute respiratory failure and pulmonary edema. HISTORY OF PRESENT ILLNESS: The patient is a 60 year old female was brought to the emergency room with respiratory distress. The patient was seen and examined in the emergency room by the ER attending. She was noted to be in acute pulmonary edema and CHF. The patient's pulse was 98 to 100 per minute, sinus tachycardia with blood pressure of 160/112. ABG pO2 was 56, pCO2 31, pH 7.48 with 91% saturation. The patient in the emergency room with given IV Lasix, Xopenex treatment was given for wheezing. The patient's condition improved remarkably within a couple of hours. She settled down and the respiratory failure and distress subsided. REVIEW OF SYSTEMS: CONSTITUTIONAL: No night sweats. No fatigue, malaise, lethargy. No fever or chills. HEENT: Eyes: No visual changes. No eye pain. No eye discharge. ENT: No runny nose. No epistaxis. No sinus pain. No sore throat. No odynophagia. No ear pain. No congestion. RESPIRATORY: No cough, no congestion. No hemoptysis. CARDIOVASCULAR: No angina symptoms. No CHF symptoms. No atypical chest pain for CAD. No palpitations. No shortness of breath. GASTROINTESTINAL: No abdominal pain. No nausea or vomiting. No diarrhea or constipation. No hematemesis. No hematochezia. GENITOURINARY: No urgency. No frequency. No dysuria. No hematuria. No obstructive symptoms. No discharge. No pain. No significant abnormal bleeding. MUSCULOSKELETAL: No musculoskeletal pain. No joint swelling. NEUROLOGICAL: No headache. No neck pain. No syncope. No seizures. No dizziness. PSYCHIATRIC: Not anxious. No depression. No suicidal thoughts. No homicidal thoughts. SKIN: No rash. No lesions. No wounds. ENDOCRINE: No unexplained weight loss. No weight gain. HEMATOLOGIC/LYMPHATIC: No anemia. No purpura. No petechiae. No prolonged or excessive bleeding. No palpable lymph nodes. MEDICATIONS: Aspirin 81mg PO daily Lasix 40mg PO daily Glipizide 10mg PO daily Insulin Lantus 50 SUBCUT daily Metformin 500mg PO twice a day Quinapril 40mg PO daily NEBS treatment at home Coreg 3.125mg PO daily Nasonex PRN Omnicef 300mg twice a day for bronchitis Tramadol 50mg Q 6 hour PRN for pain ALLERGIES: Codeine Iodinated contrast media Levofloxacin PAST MEDICAL HISTORY/PAST SURGICAL HISTORY: CHF COPD History of pneumonia Hysterectomy Cholecystectomy History of coronary bypass surgery Non-compliance Coronary artery disease Dyslipidemia SOCIAL/PERSONAL/FAMILY HISTORY: The patient is a single. Former smoker, none now. Drinks one beer every 6 months. No substance use. Family history is significant for the lung cancer. PHYSICAL EXAMINATION: GENERAL: The patient is oriented to time, place and person, not in distress. VITAL SIGNS: Temperature 97, pulse 80, respiratory 18, blood pressure 122/82 and pulse ox 96%. HEENT: Head normocephalic, atraumatic. Eyes: Extraocular muscles are intact. Pupils are equal, round and reactive to light and accommodation. Ears: No lesions. Nose appeared normal. Throat: No exudate or erythema. NECK: Supple. No JVP, no carotid bruit. No lymphadenopathy or thyromegaly. LUNGS: Decreased breath sounds but few crepitation at the bases. Good air entry. Percussion note normal. Chest symmetrical. HEART: S1, S2, no S3. No murmurs. No cyanosis or clubbing. No ascites. Pulses: Dorsalis pedis and posterior tibial pulses +1 bilaterally. ABDOMEN: Soft. Nontender. Bowel sounds active. No CVA tenderness. No mass felt. EXTREMITIES: No edema. Full range of motion of all extremities, equal. NEUROLOGIC: No focal deficit. Cranial nerves II through XII are grossly intact. No headache, no double vision or headache. SKIN: Not dry. Intact. Turgor - normal. LYMPHATIC: No palpable lymph nodes/no lymphedema. MUSCULOSKELETAL: Normal joints with no swelling. Muscle tone is normal. LABS: EKG sinus rhythm, nonspecific ST-T wave changes. Telemetry stripes sinus rhythm , No ST-T wave change. Cardiac markers are negative. Hgb 13, hct 39, WBC 6,000 normal differential, creatinine 0.8, BUN 22, potassium 3.5, glucose 126, BNP 495 , TSH borderline high, GFR 84 cc per minute. ASSESSMENT: 1. Acute pulmonary edema 2. Acute respiratory failure 3. Congestive Heart Failure 4. Severe hypertension 5. Chronic lung disease 6. Hypertension 7. Dyslipidemia PLAN: 1. Again the patient explained about the compliance. 2. The patient should be given 40mg of Lasix daily with Coreg, an unloading agent FERMÍN or ARB like Accupril 3. Will restart DUO NEBS treatment and Xopenex. 4. Will also give Decadron today and tomorrow morning. 5. Will monitor telemetry 6. Will again probably review Echocardiographic findings. 7. Congestive Heart Failure education carried out. Thanks for referral. Will follow. KATINA
[2016-07-08 09:11] LABS: GAD AUTOANTIBODY < 5.0 U/mL (0.0-5.0)
== END 2016-07-05 14:40 | disposition home or self-care (01) | DRG 291 ==
LOC: ED 01:47 → MEDSURG B 03:34
PROVIDERS: ADMIT General Practice; ATTEND General Practice
DX: I50.9 Heart failure, unspecified (principal); J96.01 Acute respiratory failure with hypoxia; J81.0 Acute pulmonary edema; E11.9 Type 2 diabetes mellitus without complications; I10 Essential (primary) hypertension; J44.9 Chronic obstructive pulmonary disease, unspecified; R10.9 Unspecified abdominal pain; Z87.891 Personal history of nicotine dependence; Z79.84 Long term (current) use of oral hypoglycemic drugs; Z79.4 Long term (current) use of insulin; Z79.899 Other long term (current) drug therapy; Z86.79 Personal history of other diseases of the circulatory system
CPT/HCPCS: 36415; 80053; 80061; 81001; 82550; 82553; 82803; 82962; 83036; 83519; 83525; 83880; 84443; 84484; 84681; 85025; 85379; 93005; 93010; 94640; 96375; 97802; 99222; 99232; 99239; 99284; 99285

== ENCOUNTER 2016-07-08 09:12 | Outpatient (CLI) ==
[2016-07-08 10:15] LABS: ALBUMIN 3.3 g/dL (3.4-5.0); ANION GAP 12.2; BUN/CREATININE RATIO 27.77; CALCIUM 9.2 mg/dL (8.2-10.2); CREATININE 0.9 mg/dL (0.60-1.30); PHOSPHORUS 3.3 mg/dL (2.5-4.9); POTASSIUM 4.2 mmol/L (3.5-5.10)
== END 2016-07-08 09:13 | disposition home or self-care (01) ==
LOC: LAB 09:12
PROVIDERS: ATTEND General Practice
DX: E11.9 Type 2 diabetes mellitus without complications (principal); I10 Essential (primary) hypertension; I50.9 Heart failure, unspecified
CPT/HCPCS: 36415; 80069

== ENCOUNTER 2016-07-25 11:11 | Emergency (ER) ==
[2016-07-25 11:16] VITALS: BP 104/72; TEMP 98.5; BMI 29.9
[2016-07-25] MEDS ORDERED: DECADRON 4 MG/ML SDV IM STA (11:39)
[2016-07-25] MEDS ORDERED: DUONEB NEB STA (11:40)
--- NOTE | 2016-07-25 12:23 | DI ---
EXAM: Chest two view, frontal and lateral views. HISTORY: Cough. COMPARISON: 07/04/2016. FINDINGS: The heart size is normal. There is no pulmonary vascular congestion. The lungs are gonzalez r. No pleural effusion or pneumothorax is seen. No acute osseous abnormality identified. Cholecys tectomy clips noted. Since the prior study, there has been no significant interval change. IMPRESSION: No acute cardiopulmonary process.
[2016-07-25 12:26] LABS: FLU INTERNAL QC INTERNAL QC VALID; RAPID FLU A NEGATIVE (NEGATIVE); RAPID FLU B NEGATIVE (NEGATIVE)
--- NOTE | 2016-07-25 13:05 | ED.PDOC ---
General ED Provider: Dr. KAMLA HAINES Chief Complaint: Respiratory Complaint Stated Complaint: COUGH, WHEEZ Time Seen by Physician: 11:13 Mode of Arrival: Walk-In Information Source: Patient Exam Limitations: No limitations Primary Care Provider: [facility] Nursing and Triage Documentation Reviewed and Agree: Yes Respiratory Complaint Exam - Respiratory Complaint/Exam Onset/Duration: 3 DAYS Symptoms Are: Still present Timing: Intermittent Initial Severity: Moderate Current Severity: Moderate Location: Throat, Chest Character: Reports: Non-productive cough Aggravating: Reports: None Alleviating: Reports: None Associated Signs and Symptoms: Reports: Nasal congestion. Denies: Rapid breathing, Dyspnea, Fever, Chills, Chest pain, Pleuritic chest pain, Wheezing, Hemoptysis, Dizziness, Calf pain, Calf swelling, Edema, URI, Hoarseness, Sinus discomfort, Vomiting, Sore throat, Weight loss, Decreased oral intake, Increased thirst, Increased appetite, Increased urination Related History: Reports: Similar episode History of Healthcare-Acquired Pneumonia: No Related Surgical History: Reports: None Pulmonary Embolism Risk Factors: None Cardiac Risk Factors: Reports: Diabetes, Hypertension Pseudomonas Risk Factors: Reports: None Tuberculosis Risk Factors: Reports: None Status Asthmaticus Risk Factors: Reports: None Home Oxygen Use: No Recent Stress Test: No Recent Echo/LV Function: No Current Antibiotic Use: No Current Asthma Medication Use: No Respiratory Distress: None Inadequate Respiratory Effort: No Dysphagia Present: No Stridor Present: No JVD Present: No Retractions: Not Present Diminished Breath Sounds: No Sinus Tenderness: None Differential Diagnoses: Pneumonia, Bronchitis Review of Systems - Review Of Systems Constitutional: Reports: Malaise Eyes: Reports: No symptoms Ears, Nose, Mouth, Throat: Reports: No symptoms Respiratory: Reports: Cough, Wheezing Cardiac: Reports: No symptoms GI: Reports: No symptoms : Reports: No symptoms Musculoskeletal: Reports: No symptoms Skin: Reports: No symptoms Neurological: Reports: No symptoms Endocrine: Reports: No symptoms Hematologic/Lymphatic: Reports: No symptoms All Other Systems: Reviewed and Negative Past Medical History - Past Medical History Previously Healthy: No Endocrine: Reports: DM 2 Cardiovascular: Reports: CAD, Hypertension, CHF Respiratory: Reports: Pneumonia Hematological: Reports: None Gastrointestinal: Reports: None Genitourinary: Reports: None Neuro/Psych: Reports: None Musculoskeletal: Reports: None Cancer: Reports: None Last Menstrual Period: hysterectomy - Surgical History General Surgical History: Reports: None, Hysterectomy (partial hystrectomy ), Cholecystectomy. Denies: CABG (hearth cath ) - Family History Family History: Reports: None - Social History Smoking Status: Former smoker Hx Substance Use: No Alcohol Screening: None Physical Exam - Physical Exam Appearance: Well-appearing, No pain distress, Well-nourished Eyes: EVGENY, EOMI, Conjunctiva clear ENT: Ears normal, Nose normal, Oropharynx normal Respiratory: Rhonchi, Wheezes Cardiovascular: RRR, Pulses normal, No rub, No murmur GI/: Soft, Nontender, No masses, Bowel sounds normal, No Organomegaly Musculoskeletal: Normal strength, ROM intact, No edema, No calf tenderness Skin: Warm, Dry, Normal color Neurological: Sensation intact, Motor intact, Reflexes intact, Cranial nerves intact, Alert, Oriented Psychiatric: Affect appropriate, Mood appropriate Interpretation - Radiology Interpretation Radiology Interpretation By: Radiologist Radiology Results: No acute changes Re-Evaluation - Re-Evaluation Time of Re-Evaluation: 13:04 Status: Improved Vital Signs Stable: Yes Pain Level: 0 Appearance: NAD Lungs: Clear Skin: Warm and Dry Neuro: Alert and Oriented X3 CV: RRR Critical Care Note - Critical Care Note Total Time (mins): 0 Course - Course Orders, Labs, Meds: Lab Review 07/25/16 11:53 Influenza A (Rapid) Negative Influenza B (Rapid) Negative Orders Category Date Time Status NEBULIZER TREATMENT Stat CARDIO 07/25/16 11:40 Completed MOLECULAR GROUP A STREP Stat LAB 07/25/16 11:53 Results RAPID FLU A/B Stat LAB 07/25/16 11:53 Completed STREP SCREEN Stat LAB 07/25/16 11:53 Results Dexamethasone 4 mg/ml Inj [Decadron 4 mg/ml Sdv] MEDS 07/25/16 11:39 Discontinued 4 mg IM ONCE STA Ipratropium/Albuterol Neb [Duoneb] MEDS 07/25/16 11:40 Discontinued 1 vial NEB ONCE STA CHEST, 2 VIEWS PA & LAT Stat RADS 07/25/16 11:39 Completed Medications Discontinued Medications Generic Name Dose Route Start Last Admin Trade Name Freq PRN Reason Stop Dose Admin Albuterol/Ipratropium 1 vial 07/25/16 11:40 07/25/16 11:50 Duoneb NEB 07/25/16 11:41 1 vial ONCE STA Administration Dexamethasone Sodium Phosphate 4 mg 07/25/16 11:39 07/25/16 12:12 Decadron 4 Mg/Ml Sdv IM 07/25/16 11:40 4 mg ONCE STA Administration Vital Signs: Temp Pulse Resp BP Pulse Ox 07/25/16 11:12 98.5 F 75 20 104/72 98 Departure - Departure Time of Disposition: 13:04 Disposition: HOME SELF-CARE Discharge Problem: Bronchitis Instructions: Bronchospasm (ED), Wheezing (ED), How Your Lungs Work (ED), Acute Bronchitis (ED) Condition: Good Pt referred to PMD for follow-up: No Additional Instructions: Please call your Family Physician as soon as possible to schedule a follow-up appointment. Prescriptions: Azithromycin [Zithromax] 250 mg PO DIRECTED #6 tablet Prednisone 40 mg PO DAILY #5 tab.ds.pk Allergies/Adverse Reactions: Allergies codeine Adverse Reaction (Verified 07/25/16 11:18) Iodinated Contrast Media - Oral and [Iodinated Contrast Media - IV Dye] Adverse Reaction (Verified 07/25/16 11:18) levofloxacin [From Levaquin] Adverse Reaction (Verified 07/25/16 11:18) Home Medications: Ambulatory Orders Aspirin [Aspirin EC] 81 mg PO DAILYWM 03/17/15 Furosemide [Lasix Tab] 40 mg PO DAILY 03/17/15 Glipizide [Glucotrol] 10 mg PO DAILY 03/17/15 Insulin Glargine,Hum.rec.anlog [Lantus] 50 unit SUBCUT BEDTIME 03/17/15 Metformin HCl [Fortamet] 500 mg PO BID 03/17/15 Quinapril HCl 40 mg PO DAILY 03/17/15 Ipratropium/Albuterol Sulfate [Combivent Respimat Inhal [place]] 4 gm IH QID PRN # 1 aer.w.adap 05/05/16 Albuterol Sulfate [Ventolin Hfa] 18 gm IH QID PRN 05/27/16 Carvedilol [Coreg] 3.125 mg PO BIDWM 05/27/16 Mometasone Furoate [Nasonex] 17 gm NS DAILY PRN 05/27/16 Azithromycin [Zithromax] 250 mg PO DIRECTED #6 tablet 07/25/16 Prednisone 40 mg PO DAILY #5 tab.ds.pk 07/25/16
== END 2016-07-25 13:14 | disposition home or self-care (01) ==
LOC: ED 11:11
DX: J40 Bronchitis, not specified as acute or chronic (principal)
CPT/HCPCS: 87651; 87804; 87880; 94640; 96372; 99283

== ENCOUNTER 2016-07-27 06:58 | Outpatient (RCR) | END 2016-08-26 | LOC: PUL.REHAB 06:58 | PROVIDERS: ATTEND Physician Assistant | DX: R06.02 Shortness of breath (principal) ==

== ENCOUNTER 2016-08-13 02:37 | Emergency (ER) ==
[2016-08-13 02:43] VITALS: BP 154/98; TEMP 96.8; BMI 30.4
[2016-08-13] MEDS ORDERED: LASIX IVP STA (02:53)
[2016-08-13] MEDS ORDERED: LASIX ONE (02:54)
[2016-08-13 03:00] LABS: ABG PCO2 32.1 mmHg (35-45); ABG PH 7.445 (7.35-7.45)
[2016-08-13 03:01] LABS: ABG BASE EXCESS -2 (-2.0-2.0); ABG HCO3 22.1 (22.0-26.0); ABG TCO2 23 (22.0-28.0)
[2016-08-13 03:16] LABS: BASOPHILS % (AUTO) 0.6 % (0.0-3.0); EOSINOPHILS # (AUTO) 0.2 K/ul (0.0-0.7); EOSINOPHILS % (AUTO) 4.7 % (0.0-7.0); HEMATOCRIT 38.6 % (37.0-47.0); HEMOGLOBIN 12.7 g/dl (12.0-16.0); IMMATURE GRANULOCYTE % (AUTO) 0.2 % (0.0-5.0); LYMPHOCYTES # (AUTO) 1.9 K/uL (0.60-3.4); LYMPHOCYTES % (AUTO) 41.4 (10.0-50.0); MEAN CORPUSCULAR HEMOGLOBIN 28.5 pg (27.0-31.0); MEAN CORPUSCULAR HGB CONC 32.9 (31.8-35.4); MEAN CORPUSCULAR VOLUME 86.5 fl (81.0-99.0); MONOCYTES # (AUTO) 0.3 K/uL (0.4-2.0); MONOCYTES % (AUTO) 6.7 (0-10); NEUTROPHILS # (AUTO) 2.2 K/ul (2.0-6.9); NEUTROPHILS % (AUTO) 46.4; PLATELET COUNT 226 10^3/uL (140-440); RED BLOOD COUNT 4.46 10^6/ul (4.20-5.40); WHITE BLOOD COUNT 4.66 K/ul (4.6-10.2)
--- NOTE | 2016-08-13 03:39 | DI ---
Exam: Chest one-view History: Dyspnea FINDINGS: Normal cardiomediastinal contours. Normal pulmonary vasculature. Bilateral central emilie bronchovascular interstitial coarsening accentuated by light radiographic technique. No consolidati ve opacities are seen. No additional pulmonary opacities. No chest wall abnormality. Impression: Central interstitial coarsening probably accentuated by radiographic technique. No con solidative opacities. Cannot exclude atypical pneumonia or edema.
[2016-08-13 04:13] LABS: ALBUMIN 3.6 g/dL (3.4-5.0); ALBUMIN/GLOBULIN RATIO 1.06; ANION GAP 15.1; BILIRUBIN,TOTAL 0.36 mg/dL (0.00-1.20); BUN/CREATININE RATIO 22.82; CALCIUM 8.8 mg/dL (8.2-10.2); CREATININE 0.92 mg/dL (0.60-1.30); POTASSIUM 4.1 mmol/L (3.5-5.10); TROPONIN I 0.027 ng/ml (0.0000-0.4000)
[2016-08-13 04:58] LABS: CREATINE KINASE MB 3.7 ng/ml (0.0-3.6)
--- NOTE | 2016-08-13 06:28 | ED.PDOC ---
General ED Provider: Dr. JEFE HOLM-ER Chief Complaint: Shortness of Air Stated Complaint: i think im building up with fluid Time Seen by Physician: 02:40 Mode of Arrival: Walk-In Information Source: Patient Exam Limitations: No limitations Nursing and Triage Documentation Reviewed and Agree: Yes Respiratory Complaint Exam - Shortness of Air Complaint/Exam Onset/Duration: 2hrs ago Symptoms Are: Still present Timing: Constant Initial Severity: Mild Current Severity: Moderate Character: Reports: Dyspnea at rest, Orthopnea Aggravating: Reports: None Alleviating: Reports: None Associated Signs and Symptoms: Reports: Cough, Labored breathing. Denies: Wheezing, Chest pain with cough, Chest pain, Fever, Chills, Diaphoresis, Nasal congestion, Dizziness, Calf pain, Calf swelling, Edema, Rapid breathing, Decreased intake Related History: Reports: Similar episode (seen a few weeks ago with same problem and transferred) History of Healthcare-Acquired Pneumonia: No Pulmonary Embolism Risk Factors: Reports: None Cardiac Risk Factors: Reports: Hypertension Pseudomonas Risk Factors: Reports: None Tuberculosis Risk Factors: Reports: None Home Oxygen Use: No Recent Stress Test: No Recent Echo/LV Function: No Respiratory Distress: Mild Stridor Present: No Tracheal Deviation: No Subcutaneous Emphysema: No Accessory Muscle Use: Yes Retractions: Not Present Diminished Breath Sounds: No Prolonged Expiratory Phase: Yes Unable to Speak Full Sentences: No Fatigue: No Leg Swelling: No Laurence's Sign Present: No Grunting Respirations: No Kussmaul Respirations: No Quality Indicator For Non-Traumatic Chest Pain/Syncope: EKG Performed Review of Systems - Review Of Systems Constitutional: Reports: No symptoms Eyes: Reports: No symptoms Ears, Nose, Mouth, Throat: Reports: No symptoms Respiratory: Reports: Orthopnea, Short of air Cardiac: Reports: No symptoms GI: Reports: No symptoms : Reports: No symptoms Musculoskeletal: Reports: No symptoms Skin: Reports: No symptoms Neurological: Reports: No symptoms Endocrine: Reports: No symptoms Hematologic/Lymphatic: Reports: No symptoms All Other Systems: Reviewed and Negative Past Medical History - Past Medical History Previously Healthy: No Endocrine: Reports: DM 2 Cardiovascular: Reports: CAD, Hypertension, CHF Respiratory: Reports: Pneumonia Hematological: Reports: None Gastrointestinal: Reports: None Genitourinary: Reports: None Neuro/Psych: Reports: None Musculoskeletal: Reports: None Cancer: Reports: None Last Menstrual Period: PT HAS HAD A PARTIAL HYSTERECTOMY 2000 - Surgical History General Surgical History: Reports: None, Hysterectomy (partial hystrectomy ), Cholecystectomy. Denies: CABG (hearth cath ) - Family History Family History: Reports: None - Social History Smoking Status: Former smoker Hx Substance Use: No Alcohol Screening: None Lives: With family - Immunizations Tetanus Shot up to Date: (UNKNOWN) Physical Exam - Physical Exam Appearance: Well-appearing, No pain distress, Well-nourished Eyes: EVGENY ENT: Ears normal, Nose normal, Oropharynx normal Neck: Supple Respiratory: Airway patent, Crackles Cardiovascular: RRR, Pulses normal, No rub, No murmur GI/: Soft Musculoskeletal: Normal strength, ROM intact, No edema, No calf tenderness Skin: Warm, Dry, Normal color Neurological: Sensation intact Psychiatric: Affect appropriate, Mood appropriate Interpretation - Radiology Interpretation Radiology Interpretation By: Radiologist Radiology Results: Positive Exam Interpreted: Portable CXR - EKG Interpretation Time of EKG #1: 00:10 Rate: Normal Rhythm: Sinus [place]: NL EKG Comparison: No significant changes Re-Evaluation - Re-Evaluation Time of Re-Evaluation: 06:31 Status: Improved (diuresis 2150 cc noted--pateint symptoms resolved--no chest pain--o2 sat 96 room air) Vital Signs Stable: Yes Pain Level: 0 Appearance: NAD Lungs: Clear Skin: Warm and Dry Neuro: Alert and Oriented X3 CV: RRR Critical Care Note - Critical Care Note Total Time (mins): 0 Course - Course Hematology/Chemistry: 08/13/16 03:05 08/13/16 03:05 Orders, Labs, Meds: Lab Review 08/13/16 08/13/16 02:52 03:05 WBC 4.66 RBC 4.46 Hgb 12.7 Hct 38.6 MCV 86.5 MCH 28.5 MCHC 32.9 RDW Coeff of Robbie 14.0 Plt Count 226 Immature Gran % (Auto) 0.2 Neut % (Auto) 46.4 Lymph % (Auto) 41.4 [place] % (Auto) 6.7 Eos % (Auto) 4.7 Baso % (Auto) 0.6 Immature Gran # (Auto) 0.0 Neut # 2.2 Lymph # 1.9 [place] # 0.3 L Eos # 0.2 Baso # 0.0 D-Dimer 0.94 Puncture Site Rb O2 Saturation 85.0 L ABG pH 7.445 ABG pCO2 32.1 L ABG pO2 47.0 L* ABG HCO3 22.1 ABG Total CO2 23 ABG Base Excess -2 [place] Test + FiO2 % 21.0 Sodium 135 L Potassium 4.1 Chloride 103 Carbon Dioxide 21 Anion Gap 15.1 BUN 21 H Creatinine 0.92 Estimated GFR (MDRD) 76.00 BUN/Creatinine Ratio 22.82 Glucose 259 H Calcium 8.8 Total Bilirubin 0.36 AST 39 H ALT 31 Alkaline Phosphatase 62 Total Creatine Kinase 359 CK-MB (CK-2) 3.7 H CK-MB (CK-2) % 1.99694 Troponin I 0.0270 B-Natriuretic Peptide 266 H Total Protein 7.0 Albumin 3.6 Globulin 3.4 Albumin/Globulin Ratio 1.06 Orders Category Date Time Status ABG DRAW REQUEST Stat CARDIO 08/13/16 02:52 Completed EKG-(ED ONLY) Stat CARDIO 08/13/16 02:52 Completed Hypoid Gear Generator [ED TORCH BRAZER APPLIED] .ONCE EMERGENCY 08/13/16 02:53 Active IV [ED IV/MEDIPORT/POWERPORT] .ONCE EMERGENCY 08/13/16 02:52 Active ABG Stat LAB 08/13/16 02:52 Completed B-TYPE NATRIURETIC PEPTIDE Stat LAB 08/13/16 03:05 Completed CBC W/ AUTO DIFF Stat LAB 08/13/16 03:05 Completed COMPREHENSIVE METABOLIC PANEL Stat LAB 08/13/16 03:05 Completed CREATINE KINASE Stat LAB 08/13/16 03:05 Completed D-DIMER Stat LAB 08/13/16 03:05 Completed TROPONIN I Stat LAB 08/13/16 03:05 Completed 0.9 % Sodium Chloride [Saline Flush] MEDS 08/13/16 02:52 Ordered 1 syr IVF PRN PRN Furosemide [Lasix] MEDS 08/13/16 02:54 Discontinued 100 mg .ROUTE .STK-MED ONE Furosemide [Lasix] MEDS 08/13/16 02:53 Discontinued 80 mg IVP ONCE STA CXR [CHEST, 1V AP ONLY] Stat RADS 08/13/16 02:53 Completed Medications Generic Name Dose Route Start Last Admin Trade Name Freq PRN Reason Stop Dose Admin Sodium Chloride 1 syr 08/13/16 02:52 Saline Flush IVF PRN PRN To flush IV Discontinued Medications Generic Name Dose Route Start Last Admin Trade Name Freq PRN Reason Stop Dose Admin Furosemide 80 mg 08/13/16 02:53 08/13/16 02:57 Lasix IVP 08/13/16 02:54 80 mg ONCE STA Administration Vital Signs: Temp Pulse Resp BP Pulse Ox 08/13/16 05:00 97 08/13/16 02:38 96.8 F L 107 H 32 H 154/98 H 90 L Departure - Departure Time of Disposition: 06:32 Disposition: HOME SELF-CARE Discharge Problem: CHF (congestive heart failure) Qualifiers: Congestive heart failure type: unspecified congestive heart failure type Congestive heart failure chronicity: acute on chronic Qualifier Code: (I50.9) Heart failure, unspecified Instructions: Heart Failure (ED) Condition: Fair Pt referred to PMD for follow-up: Yes Additional Instructions: 4gm sodium restriction--continue lasix--f/u with cardiolgist next week--rreturn if any prloblems Allergies/Adverse Reactions: Allergies codeine Adverse Reaction (Verified 08/13/16 02:43) Iodinated Contrast Media - Oral and [Iodinated Contrast Media - IV Dye] Adverse Reaction (Verified 08/13/16 02:43) levofloxacin [From Levaquin] Adverse Reaction (Verified 08/13/16 02:43) Home Medications: Ambulatory Orders Aspirin [Aspirin EC] 81 mg PO DAILYWM 03/17/15 Furosemide [Lasix Tab] 40 mg PO DAILY 03/17/15 Glipizide [Glucotrol] 10 mg PO DAILY 03/17/15 Insulin Glargine,Hum.rec.anlog [Lantus] 50 unit SUBCUT BEDTIME 03/17/15 Metformin HCl [Fortamet] 500 mg PO BID 03/17/15 Quinapril HCl 40 mg PO DAILY 03/17/15 Ipratropium/Albuterol Sulfate [Combivent Respimat Inhal [place]] 4 gm IH QID PRN # 1 aer.w.adap 05/05/16 Albuterol Sulfate [Ventolin Hfa] 18 gm IH QID PRN 05/27/16 Carvedilol [Coreg] 3.125 mg PO BIDWM 05/27/16 Mometasone Furoate [Nasonex] 17 gm NS DAILY PRN 05/27/16 Disposition Discussed With: Patient
== END 2016-08-13 06:35 | disposition home or self-care (01) ==
LOC: ED 02:37
DX: I50.9 Heart failure, unspecified (principal); I10 Essential (primary) hypertension; E11.9 Type 2 diabetes mellitus without complications; I25.10 Atherosclerotic heart disease of native coronary artery without angina pectoris; Z79.899 Other long term (current) drug therapy
CPT/HCPCS: 36415; 80053; 82550; 82553; 82803; 83880; 84484; 85025; 85379; 93005; 93010; 96374; 99284

== ENCOUNTER 2016-08-27 07:00 | Outpatient (RCR) | END 2016-09-25 | LOC: PUL.REHAB 07:00 | PROVIDERS: ATTEND Physician Assistant | DX: R06.02 Shortness of breath (principal) ==

== ENCOUNTER 2017-01-17 17:49 | Emergency (ER) ==
[2017-01-17 17:57] VITALS: BP 132/84; TEMP 98; BMI 29.3
--- NOTE | 2017-01-17 18:09 | ED.PDOC ---
General ED Provider: Dr. KAMLA HAINES Chief Complaint: Non-specific Complaint Stated Complaint: sinus pain Time Seen by Physician: 18:00 Mode of Arrival: Walk-In Information Source: Patient Exam Limitations: No limitations Primary Care Provider: TONY OKEEFE Nursing and Triage Documentation Reviewed and Agree: Yes (seen with gustavo) EENT Complaint Exam - Throat Complaint/Exam Onset/Duration: maxillary sinus pain for 7 days Symptoms Are: Still present Timimg: Constant Initial Severity: Moderate Current Severity: Moderate Alleviating: Reports: None Associated Signs and Symptoms: Reports: Cough, Nasal congestion. Denies: Fever , Dysphagia, Drooling, Foreign body sensation, Chills, Wheezing, Hoarseness, Sinus discomfort, Difficulty breathing, Lethargy, Irritability, Decreased activity, Vomiting, Diarrhea, Decreased hearing, Ear drainage Related History: Reports: Similar Episode Uvula Midline: Yes Chata-tonsillar Fluctuence: No Scarlatinaform Rash Present: No Stridor Present: No Sinus Tenderness Present: No Tonsillar Hypertrophy Present: No Tonsillar Exudate Present: No Chata-tonsillar Swelling Present: No Adenopathy Present: No Splenomegaly Present: No Review of Systems - Review Of Systems Constitutional: Reports: Other (maxillary sinus pain) Eyes: Reports: No symptoms Ears, Nose, Mouth, Throat: Reports: No symptoms Respiratory: Reports: No symptoms Cardiac: Reports: No symptoms GI: Reports: No symptoms : Reports: No symptoms Musculoskeletal: Reports: No symptoms Skin: Reports: No symptoms Neurological: Reports: No symptoms Endocrine: Reports: No symptoms Hematologic/Lymphatic: Reports: No symptoms All Other Systems: Reviewed and Negative Past Medical History - Past Medical History Previously Healthy: No Endocrine: Reports: DM 2 Cardiovascular: Reports: CAD, Hypertension, CHF Respiratory: Reports: Pneumonia Hematological: Reports: None Gastrointestinal: Reports: None Genitourinary: Reports: None Neuro/Psych: Reports: None Musculoskeletal: Reports: None Cancer: Reports: None Last Menstrual Period: menopause - Surgical History General Surgical History: Reports: None, Hysterectomy (partial hystrectomy ), Cholecystectomy. Denies: CABG (hearth cath ) - Family History Family History: Reports: None - Social History Smoking Status: Former smoker Hx Substance Use: No Alcohol Screening: None - Immunizations Tetanus Shot up to Date: Yes Physical Exam - Physical Exam Appearance: Well-appearing, No pain distress, Well-nourished Eyes: EVGENY, EOMI, Conjunctiva clear ENT: Nose normal, Oropharynx normal (poorly transilluminating sinuses over maxillary sinuses , pain on palpation) Respiratory: Airway patent, Breath sounds clear, Breath sounds equal, Respirations nonlabored Cardiovascular: RRR, Pulses normal, No rub, No murmur GI/: Soft, Nontender, No masses, Bowel sounds normal, No Organomegaly Musculoskeletal: Normal strength, ROM intact, No edema, No calf tenderness Skin: Warm, Dry, Normal color Neurological: Sensation intact, Motor intact, Reflexes intact, Cranial nerves intact, Alert, Oriented Psychiatric: Affect appropriate, Mood appropriate Critical Care Note - Critical Care Note Total Time (mins): 0 Course - Course Vital Signs: Temp Pulse Resp BP Pulse Ox 01/17/17 17:52 98.0 F 75 18 132/84 96 Departure - Departure Time of Disposition: 19:00 Disposition: HOME SELF-CARE Discharge Problem: Sinusitis Qualifiers: Sinusitis location: maxillary Instructions: Rhinosinusitis (ED) Condition: Good Pt referred to PMD for follow-up: Yes Allergies/Adverse Reactions: Allergies codeine Adverse Reaction (Verified 01/17/17 17:58) Iodinated Contrast- Oral and IV Dye [Iodinated Contrast Media - IV Dye] Adverse Reaction (Verified 01/17/17 17:58) levofloxacin [From Levaquin] Adverse Reaction (Verified 01/17/17 17:58) Home Medications: Ambulatory Orders Aspirin [Aspirin EC] 81 mg PO DAILYWM 03/17/15 Furosemide [Lasix Tab] 40 mg PO DAILY 03/17/15 Glipizide [Glucotrol] 10 mg PO DAILY 03/17/15 Insulin Glargine,Hum.rec.anlog [Lantus] 50 unit SUBCUT BEDTIME 03/17/15 Metformin HCl [Fortamet] 500 mg PO BID 03/17/15 Quinapril HCl 40 mg PO DAILY 03/17/15 Carvedilol [Coreg] 3.125 mg PO BIDWM 05/27/16 Mometasone Furoate [Nasonex] 17 gm NS DAILY PRN 05/27/16 Multivitamin/Iron/Folic Acid [Centrum Complete Multivit Tab] 01/17/17 [place]-3 Fatty Acids/Fish Oil [Fish Oil 1,000 mg Capsule] 1 cap 01/17/17 Potassium Bicarbonate/Cit AC [Potassium 25 Meq Tablet Eff] 01/17/17 Disposition Discussed With: Patient
[2017-01-17] MEDS: LIDOCAINE 1 % AMP 5 ML (SUTURES) IM STA (18:22)
[2017-01-17] MEDS: ROCEPHIN IM STA (18:22)
[2017-01-17] MEDS: DECADRON 4 MG/ML SDV IM STA (18:22)
== END 2017-01-17 18:44 | disposition home or self-care (01) ==
LOC: ED 17:49
DX: J32.0 Chronic maxillary sinusitis (principal)
CPT/HCPCS: 96372; 99282

== ENCOUNTER 2017-01-30 12:34 | Emergency (ER) ==
[2017-01-30 12:38] VITALS: BP 122/81; TEMP 97.7; BMI 29.0
--- NOTE | 2017-01-30 12:56 | ED.PDOC ---
General ED Provider: Dr. JEFE HOLM-ER Chief Complaint: Respiratory Complaint Stated Complaint: my sinuses are not any better on amoxil--im sneezing, lots of nasal congestion, drainage and cough Time Seen by Physician: 12:40 Mode of Arrival: Walk-In Information Source: Patient Exam Limitations: No limitations Nursing and Triage Documentation Reviewed and Agree: Yes EENT Complaint Exam - Nasal Complaint/Exam Onset/Duration: several days Symptoms Are: Still present Timing: Constant Initial Severity: Mild Current Severity: Mild Location: Left, Bilateral, Posterior drainage Aggravating: Reports: URI Alleviating: Reports: None Associated Signs and Symptoms: Reports: Nasal congestion, Sinus pain, Nasal discharge. Denies: Bruising, Hematuria, Hematochezia, Foreign body, Abnormal coags Nasal Surgical History: Reports: None Foreign Body Present: No Septal Hematoma: No Differential Diagnoses: Sinusitis Review of Systems - Review Of Systems Constitutional: Reports: No symptoms Eyes: Reports: No symptoms Ears, Nose, Mouth, Throat: Reports: Nose discharge Respiratory: Reports: No symptoms Cardiac: Reports: No symptoms GI: Reports: No symptoms : Reports: No symptoms Musculoskeletal: Reports: No symptoms Skin: Reports: No symptoms Neurological: Reports: No symptoms Endocrine: Reports: No symptoms Hematologic/Lymphatic: Reports: No symptoms All Other Systems: Reviewed and Negative Past Medical History - Past Medical History Previously Healthy: No Endocrine: Reports: DM 2 Cardiovascular: Reports: CAD, Hypertension, CHF Respiratory: Reports: Pneumonia Hematological: Reports: None Gastrointestinal: Reports: None Genitourinary: Reports: None Neuro/Psych: Reports: None Musculoskeletal: Reports: None Cancer: Reports: None Last Menstrual Period: NONE - Surgical History General Surgical History: Reports: None, Hysterectomy (partial hystrectomy ), Cholecystectomy. Denies: CABG (hearth cath ) - Family History Family History: Reports: None - Social History Smoking Status: Former smoker Hx Substance Use: No Alcohol Screening: None Lives: With family Physical Exam - Physical Exam Appearance: Well-appearing, No pain distress, Well-nourished Eyes: EVGENY, EOMI, Conjunctiva clear ENT: Rhinorrhea Neck: Supple Respiratory: Airway patent Cardiovascular: RRR GI/: Soft, No Organomegaly Musculoskeletal: Normal strength Skin: Warm Neurological: Sensation intact Psychiatric: Affect appropriate, Mood appropriate Interpretation - Radiology Interpretation Radiology Interpretation By: Radiologist Radiology Results: Negative Exam Interpreted: CT Scan Critical Care Note - Critical Care Note Total Time (mins): 0 Course - Course Orders, Labs, Meds: Orders Category Date Time Status CT SINUSES W/O CONTRAST Stat RADS 01/30/17 12:45 Ordered Vital Signs: Temp Pulse Resp BP Pulse Ox 01/30/17 12:35 97.7 F 67 18 122/81 97 Departure - Departure Time of Disposition: 13:43 Disposition: HOME SELF-CARE Discharge Problem: Allergic rhinitis Qualifiers: Chronicity: acute Allergic rhinitis trigger: unspecified Allergic rhinitis seasonality: unspecified seasonality Qualifier Code: (J30.9) Allergic rhinitis, unspecified Instructions: Allergic Rhinitis (ED) Condition: Good Pt referred to PMD for follow-up: Yes Additional Instructions: flonase nasal spray one puff each nostril q daily---astelin nasal spray 2 puffs each nostril bid--f/u with pcp Allergies/Adverse Reactions: Allergies codeine Adverse Reaction (Verified 01/30/17 12:38) Iodinated Contrast- Oral and IV Dye [Iodinated Contrast Media - IV Dye] Adverse Reaction (Verified 01/30/17 12:38) levofloxacin [From Levaquin] Adverse Reaction (Verified 01/30/17 12:38) Home Medications: Ambulatory Orders Aspirin [Aspirin EC] 81 mg PO DAILYWM 03/17/15 Furosemide [Lasix Tab] 40 mg PO DAILY 03/17/15 Glipizide [Glucotrol] 10 mg PO DAILY 03/17/15 Insulin Glargine,Hum.rec.anlog [Lantus] 50 unit SUBCUT BEDTIME 03/17/15 Metformin HCl [Fortamet] 500 mg PO BID 03/17/15 Quinapril HCl 40 mg PO DAILY 03/17/15 Carvedilol [Coreg] 3.125 mg PO BIDWM 05/27/16 Mometasone Furoate [Nasonex] 17 gm NS DAILY PRN 05/27/16 Multivitamin/Iron/Folic Acid [Centrum Complete Multivit Tab] 1 tab PO DAILY [place]-3 Fatty Acids/Fish Oil [Fish Oil 1,000 mg Capsule] 1 cap PO DAILY Potassium Bicarbonate/Cit AC [Potassium 25 Meq Tablet Eff] 25 meq PO DAILY 01/17 Disposition Discussed With: Patient
[2017-01-30] MEDS ORDERED: TORADOL IM STA (13:10)
[2017-01-30] MEDS ORDERED: DECADRON 4 MG/ML SDV IM STA (13:10)
--- NOTE | 2017-01-30 13:27 | CT ---
Exam: CT paranasal sinuses without contrast. Clinical indication: Sinus pain and pressure. TECHNIQUE: Axial unenhanced CT images through the paranasal sinuses were obtained followed by coron al and sagittal reformats. Findings: Within the base of the right maxillary sinus there is a 1.9 cm ovoid filling defect consistent with a mucous retention cyst versus polyp. The remainder of the right maxillary sinus is clear. The rig ht ostiomeatal complex is patent. The left maxillary sinus is clear. The left ostiomeatal complexes clear. The bilateral anterior and posterior ethmoid air cells are clear. The bilateral sphenoid and frontal sinuses are clear. The visualized bony structures are unremarkable. The remainder the visualized soft tissues are unremarkable. The bilateral mastoid air cells are clear. Impression: 1. 1.9 cm right maxillary sinus ovoid filling defect consistent with a mucous retention cyst versus polyp. 2. Otherwise unremarkable CT of the paranasal sinuses.
== END 2017-01-30 13:57 | disposition home or self-care (01) ==
LOC: ED 12:34
DX: J30.9 Allergic rhinitis, unspecified (principal)
CPT/HCPCS: 96372; 99282

== ENCOUNTER 2017-07-20 09:01 | Outpatient (CLI) ==
[2017-03-29 16:43] VITALS: BMI 29.9
== END 2017-07-20 09:02 | disposition home or self-care (01) ==
LOC: LAB 09:01
PROVIDERS: ATTEND Physician Assistant
DX: E11.37X1 Type 2 diabetes mellitus with diabetic macular edema, resolved following treatment, right eye (principal); I10 Essential (primary) hypertension; E78.5 Hyperlipidemia, unspecified; Z13.9 Encounter for screening, unspecified
CPT/HCPCS: 36415; 80053; 80061; 83036; 86803

== ENCOUNTER 2017-07-24 08:29 | Outpatient (CLI) ==
[2017-03-29 16:43] VITALS: BMI 29.9
== END 2017-07-24 08:30 | disposition home or self-care (01) ==
LOC: RAD 08:29
PROVIDERS: ATTEND Physician Assistant
DX: Z12.31 Encounter for screening mammogram for malignant neoplasm of breast (principal)
CPT/HCPCS: 77067

== ENCOUNTER 2017-08-21 07:17 | Emergency (ER) ==
[2017-08-21 07:25] VITALS: BP 158/104; TEMP 97.3; BMI 29.5
[2017-08-21] MEDS ORDERED: DUONEB NEB STA (07:26)
[2017-08-21] MEDS ORDERED: DECADRON 4 MG/ML SDV IM STA (07:27)
--- NOTE | 2017-08-21 08:15 | DI ---
EXAM: Chest two view, frontal and lateral views. HISTORY: Cough. COMPARISON: 08/13/2016. FINDINGS: Heart size is normal. There is no vascular congestion. Increased interstitial markings, greater in the lung bases again noted. No consolidation, pleural effusion or pneumothorax identified . Clips seen in the right upper abdomen. No acute osseous abnormality identified.. IMPRESSION: Bilateral interstitial opacities, greater in the bases, which could be due to mild edema or pneumonit is.
--- NOTE | 2017-08-21 09:23 | ED.PDOC ---
General ED Provider: Dr. KAMLA HAINES Chief Complaint: Respiratory Complaint Stated Complaint: throat pain and cough Time Seen by Physician: 07:21 (seen with the nurse tammy) Mode of Arrival: Walk-In Information Source: Patient Exam Limitations: No limitations Nursing and Triage Documentation Reviewed and Agree: Yes Reviewed sepsis parameters & appropriate labs ordered?: Yes System Inflammatory Response Syndrome: Not Applicable Sepsis Protocol: For patient's 13 years and over: Temp is 96.8 and below OR 101 and greater Pulse >90 BPM Resp >20/minute Acutely Altered Mental Status Are patient's symptoms suggestive of a new infection, such as: -Pneumonia -Skin, Soft Tissue -Endocarditis -UTI -Bone, Joint Infection -Implantable Device -Acute Abdominal Infection -Wound Infection -Meningitis -Blood Stream Catheter Infection -Unknown System Inflammatory Response Syndrome: Not Applicable Review of Systems - Review Of Systems Constitutional: Reports: No symptoms Eyes: Reports: No symptoms Ears, Nose, Mouth, Throat: Reports: Throat pain Respiratory: Reports: Cough Cardiac: Reports: No symptoms GI: Reports: No symptoms : Reports: No symptoms Musculoskeletal: Reports: No symptoms Skin: Reports: No symptoms Neurological: Reports: No symptoms Endocrine: Reports: No symptoms Hematologic/Lymphatic: Reports: No symptoms All Other Systems: Reviewed and Negative Past Medical History - Past Medical History Previously Healthy: No Endocrine: Reports: DM 2 Cardiovascular: Reports: CAD, Hypertension, CHF Respiratory: Reports: Pneumonia Hematological: Reports: None Gastrointestinal: Reports: None Genitourinary: Reports: None Neuro/Psych: Reports: None Musculoskeletal: Reports: None Cancer: Reports: None Last Menstrual Period: NA - Surgical History General Surgical History: Reports: None, Hysterectomy (partial hystrectomy ), Cholecystectomy. Denies: CABG (hearth cath ) - Family History Family History: Reports: None - Social History Smoking Status: Former smoker Hx Substance Use: No Alcohol Screening: None Physical Exam - Physical Exam Appearance: Well-appearing, No pain distress, Well-nourished Eyes: EVGENY, EOMI, Conjunctiva clear ENT: Ears normal, Nose normal, Oropharynx normal Respiratory: Airway patent, Breath sounds clear, Breath sounds equal, Respirations nonlabored Cardiovascular: RRR, Pulses normal, No rub, No murmur GI/: Soft, Nontender, No masses, Bowel sounds normal, No Organomegaly Musculoskeletal: Normal strength, ROM intact, No edema, No calf tenderness Skin: Warm, Dry, Normal color Neurological: Sensation intact, Motor intact, Reflexes intact, Cranial nerves intact, Alert, Oriented Psychiatric: Affect appropriate, Mood appropriate Interpretation - Radiology Interpretation Radiology Results: Negative Exam Interpreted: CXR Critical Care Note - Critical Care Note Total Time (mins): 0 Course - Course Hematology/Chemistry: 08/21/17 07:30 08/21/17 07:30 Orders, Labs, Meds: Lab Review 08/21/17 08/21/17 08/21/17 07:30 07:30 08:12 WBC 4.24 L RBC 4.47 Hgb 12.9 Hct 39.4 MCV 88.1 MCH 28.9 MCHC 32.7 RDW Coeff of Robbie 13.9 Plt Count 226 Immature Gran % (Auto) 0.2 Neut % (Auto) 50.2 Lymph % (Auto) 36.3 [place] % (Auto) 9.0 Eos % (Auto) 3.8 Baso % (Auto) 0.5 Immature Gran # (Auto) 0.0 Neut # (Auto) 2.1 Lymph # (Auto) 1.5 [place] # (Auto) 0.4 Eos # (Auto) 0.2 Baso # (Auto) 0.0 Sodium 143 Potassium 3.6 Chloride 107 Carbon Dioxide 23 Anion Gap 16.6 BUN 16 Creatinine 0.87 Estimated GFR (MDRD) 80.00 BUN/Creatinine Ratio 18.39 Glucose 153 H Calcium 9.4 Total Bilirubin 0.7 AST 19 ALT 21 Alkaline Phosphatase 59 Total Creatine Kinase 281 CK-MB (CK-2) 3.0 CK-MB (CK-2) % 1.85227 Troponin I 0.0450 Total Protein 7.5 Albumin 3.7 Globulin 3.8 Albumin/Globulin Ratio 0.97 Influ A Molecular Assay Negative by naat Influ B Molecular Assay Negative by naat Orders Category Date Time Status EKG-(ED ONLY) Stat CARDIO 08/21/17 07:26 Completed NEBULIZER TREATMENT Stat CARDIO 08/21/17 07:27 Completed CBC W/ AUTO DIFF Stat LAB 08/21/17 07:30 Completed COMPREHENSIVE METABOLIC PANEL Stat LAB 08/21/17 07:30 Completed CREATINE KINASE Stat LAB 08/21/17 07:30 Completed FLU A/B MOLECULAR Stat LAB 08/21/17 08:12 Completed MOLECULAR GROUP A STREP Stat LAB 08/21/17 08:12 Completed TROPONIN I Stat LAB 08/21/17 07:30 Completed Dexamethasone 4 mg/ml Inj [Decadron 4 mg/ml Sdv] MEDS 08/21/17 07:27 Discontinued 4 mg IM ONCE STA Ipratropium/Albuterol Neb [Duoneb] MEDS 08/21/17 07:26 Discontinued 1 vial NEB ONCE STA CHEST, 2 VIEWS PA & LAT Stat RADS 08/21/17 07:26 Completed Medications Discontinued Medications Generic Name Dose Route Start Last Admin Trade Name Kecia PRZhane Reason Stop Dose Admin Albuterol/Ipratropium 1 vial 08/21/17 07:26 08/21/17 08:18 Duoneb NEB 08/21/17 07:27 1 vial ONCE STA Administration Dexamethasone Sodium Phosphate 4 mg 08/21/17 07:27 08/21/17 08:24 Decadron 4 Mg/Ml Sdv IM 08/21/17 07:28 4 mg ONCE STA Administration Vital Signs: Temp Pulse Resp BP Pulse Ox 08/21/17 07:21 97.3 F L 84 16 158/104 H 98 Departure - Departure Time of Disposition: 09:25 (copies of entire lab work given to the pt) Disposition: HOME SELF-CARE Discharge Problem: Sore throat (viral) Instructions: Pharyngitis (ED) Condition: Good Pt referred to PMD for follow-up: Yes IPMP verified?: No Additional Instructions: Please call your Family Physician as soon as possible to schedule a follow-up appointment. Allergies/Adverse Reactions: Allergies codeine Adverse Reaction (Verified 08/21/17 07:20) Iodinated Contrast- Oral and IV Dye [Iodinated Contrast Media - IV Dye] Adverse Reaction (Verified 08/21/17 07:20) levofloxacin [From Levaquin] Adverse Reaction (Verified 08/21/17 07:20) Home Medications: Ambulatory Orders Aspirin [Aspirin EC] 81 mg PO DAILYWM 03/17/15 Furosemide [Lasix Tab] 40 mg PO DAILY 03/17/15 Glipizide [Glucotrol] 10 mg PO DAILY 03/17/15 Insulin Glargine,Hum.rec.anlog [Lantus] 50 unit SUBCUT BEDTIME 03/17/15 Metformin HCl [Fortamet] 500 mg PO BID 03/17/15 Quinapril HCl 40 mg PO DAILY 03/17/15 Carvedilol [Coreg] 3.125 mg PO BIDWM 05/27/16 Multivitamin/Iron/Folic Acid [Centrum Complete Multivit Tab] 1 tab PO DAILY [place]-3 Fatty Acids/Fish Oil [Fish Oil 1,000 mg Capsule] 1 cap PO DAILY Potassium Bicarbonate/Cit AC [Potassium 25 Meq Tablet Eff] 99 mg PO DAILY Disposition Discussed With: Patient
== END 2017-08-21 09:40 | disposition home or self-care (01) ==
LOC: ED 07:17
DX: J02.9 Acute pharyngitis, unspecified (principal); R05 Cough; E11.9 Type 2 diabetes mellitus without complications; I10 Essential (primary) hypertension; I25.10 Atherosclerotic heart disease of native coronary artery without angina pectoris
CPT/HCPCS: 36415; 80053; 82550; 82553; 84484; 85025; 87502; 87651; 93005; 93010; 94640; 96372; 99283

== ENCOUNTER 2017-08-29 15:33 | Emergency (ER) ==
[2017-08-29 15:37] VITALS: BP 127/74; TEMP 97.8; BMI 30.9
[2017-08-29] MEDS ORDERED: DECADRON 4 MG/ML SDV IM STA (15:37)
--- NOTE | 2017-08-29 16:14 | DI ---
EXAM: Chest two views HISTORY: Short of air COMPARISON: 08/21/2017 TECHNIQUE: Two views of the chest were performed FINDINGS: Bilateral interstitial opacities appear unchanged. Granulomatous calcification. There is n o pleural effusion or pneumothorax. The heart is normal in size. The mediastinal contour is normal. There are no acute abnormalities of the bones. IMPRESSION: Bilateral interstitial opacities appear unchanged and could be due to mild edema or pneu monitis.
--- NOTE | 2017-08-29 16:50 | ED.PDOC ---
General ED Provider: Dr. KAMLA HAINES Chief Complaint: Shortness of Air Stated Complaint: shortness of breath Time Seen by Physician: 15:33 ( no resp distress seen with memo AGUIAR) Mode of Arrival: Walk-In Information Source: Patient Exam Limitations: No limitations Primary Care Provider: TONY OKEEFE Nursing and Triage Documentation Reviewed and Agree: Yes Reviewed sepsis parameters & appropriate labs ordered?: Yes System Inflammatory Response Syndrome: Not Applicable Sepsis Protocol: For patient's 13 years and over: Temp is 96.8 and below OR 101 and greater Pulse >90 BPM Resp >20/minute Acutely Altered Mental Status Are patient's symptoms suggestive of a new infection, such as: -Pneumonia -Skin, Soft Tissue -Endocarditis -UTI -Bone, Joint Infection -Implantable Device -Acute Abdominal Infection -Wound Infection -Meningitis -Blood Stream Catheter Infection -Unknown System Inflammatory Response Syndrome: Not Applicable Respiratory Complaint Exam - Respiratory Complaint/Exam Onset/Duration: 3 DAYS Symptoms Are: Still present Timing: Intermittent Initial Severity: Mild Current Severity: None Location: Nose, Throat, Chest Character: Reports: Non-productive cough Aggravating: Reports: None Alleviating: Reports: Spontaneous resolution Associated Signs and Symptoms: Reports: URI, Nasal congestion. Denies: Rapid breathing, Dyspnea, Fever, Chills, Chest pain, Pleuritic chest pain, Wheezing, Hemoptysis, Dizziness, Calf pain, Calf swelling, Edema, Hoarseness, Sinus discomfort, Vomiting, Sore throat, Weight loss, Decreased oral intake, Increased thirst, Increased appetite, Increased urination Related History: Reports: Similar episode History of Healthcare-Acquired Pneumonia: No Related Surgical History: Reports: None Pulmonary Embolism Risk Factors: None Cardiac Risk Factors: Reports: CHF Pseudomonas Risk Factors: Reports: None Tuberculosis Risk Factors: Reports: None Status Asthmaticus Risk Factors: Reports: None Home Oxygen Use: No Recent Stress Test: No Recent Echo/LV Function: No Current Antibiotic Use: No Current Asthma Medication Use: No Respiratory Distress: None Inadequate Respiratory Effort: No Dysphagia Present: No Stridor Present: No JVD Present: No Accessory Muscle Use: No Retractions: Not Present Diminished Breath Sounds: No Sinus Tenderness: None Grunting Respirations: No Kussmaul Respirations: No Differential Diagnoses: Pneumonia, Bronchitis Quality Indicators For Pneumonia: Vital signs, Mental status assessed Non-Traumatic Chest Pain Syncope: EKG Performed Review of Systems - Review Of Systems Constitutional: Reports: No symptoms Eyes: Reports: No symptoms Ears, Nose, Mouth, Throat: Reports: No symptoms Respiratory: Reports: Cough Cardiac: Reports: No symptoms GI: Reports: No symptoms : Reports: No symptoms Musculoskeletal: Reports: No symptoms Skin: Reports: No symptoms Neurological: Reports: No symptoms Endocrine: Reports: No symptoms Hematologic/Lymphatic: Reports: No symptoms All Other Systems: Reviewed and Negative Past Medical History - Past Medical History Previously Healthy: No Endocrine: Reports: DM 2 Cardiovascular: Reports: CAD, Hypertension, CHF Respiratory: Reports: Pneumonia Hematological: Reports: None Gastrointestinal: Reports: None Genitourinary: Reports: None Neuro/Psych: Reports: None Musculoskeletal: Reports: None Cancer: Reports: None Last Menstrual Period: na - Surgical History General Surgical History: Reports: None, Hysterectomy (partial hystrectomy ), Cholecystectomy. Denies: CABG (hearth cath ) - Family History Family History: Reports: None - Social History Smoking Status: Former smoker Hx Substance Use: No Alcohol Screening: None Physical Exam - Physical Exam Appearance: Well-appearing, No pain distress, Well-nourished Eyes: EVGENY, EOMI, Conjunctiva clear ENT: Ears normal, Nose normal, Oropharynx normal Respiratory: Airway patent, Breath sounds clear, Breath sounds equal, Respirations nonlabored Cardiovascular: RRR, Pulses normal, No rub, No murmur GI/: Soft, Nontender, No masses, Bowel sounds normal, No Organomegaly Musculoskeletal: Normal strength, ROM intact, No edema, No calf tenderness Skin: Warm, Dry, Normal color Neurological: Sensation intact, Motor intact, Reflexes intact, Cranial nerves intact, Alert, Oriented Psychiatric: Affect appropriate, Mood appropriate Interpretation - Radiology Interpretation Radiology Interpretation By: Radiologist Radiology Results: No acute changes - Claims Agent Right Of Way Rate: Normal Rhythm: Sinus Ectopy: None - EKG Interpretation Rate: Normal Rhythm: Sinus Critical Care Note - Critical Care Note Total Time (mins): 0 Course - Course Hematology/Chemistry: 08/29/17 16:28 Orders, Labs, Meds: Lab Review 08/29/17 08/29/17 15:35 16:28 WBC 4.18 L RBC 4.19 L Hgb 12.1 Hct 36.6 L MCV 87.4 MCH 28.9 MCHC 33.1 RDW Coeff of Robbie 13.6 Plt Count 214 Immature Gran % (Auto) 0.2 Neut % (Auto) 45.5 Lymph % (Auto) 41.9 [place] % (Auto) 8.6 Eos % (Auto) 3.3 Baso % (Auto) 0.5 Immature Gran # (Auto) 0.0 Neut # (Auto) 1.9 L Lymph # (Auto) 1.8 [place] # (Auto) 0.4 Eos # (Auto) 0.1 Baso # (Auto) 0.0 Puncture Site Rr O2 Saturation 97.0 ABG pH 7.466 H ABG pCO2 34.2 L ABG pO2 87.0 ABG HCO3 24.7 ABG Total CO2 26 ABG Base Excess 1 [place] Test + FiO2 % 21.0 Orders Category Date Time Status ABG DRAW REQUEST Stat CARDIO 08/29/17 15:35 Completed EKG-(ED ONLY) Stat CARDIO 08/29/17 15:36 Completed ABG Stat LAB 08/29/17 15:35 Completed BLOOD CULTURE Stat LAB 08/29/17 16:28 Received BNP [B-TYPE NATRIURETIC PEPTIDE] Stat LAB 08/29/17 16:28 Received CBC W/ AUTO DIFF Stat LAB 08/29/17 16:28 Completed COMPREHENSIVE METABOLIC PANEL Stat LAB 08/29/17 16:28 Received CREATINE KINASE Stat LAB 08/29/17 16:28 Received PROCALCITONIN Stat LAB 08/29/17 16:28 Received TROPONIN I Stat LAB 08/29/17 16:28 Received Dexamethasone 4 mg/ml Inj [Decadron 4 mg/ml Sdv] MEDS 08/29/17 15:37 Discontinued 4 mg IM ONCE STA CHEST, 2 VIEWS PA & LAT Stat RADS 08/29/17 15:35 Completed Medications Discontinued Medications Generic Name Dose Route Start Last Admin Trade Name Freq PRN Reason Stop Dose Admin Dexamethasone Sodium Phosphate 4 mg 08/29/17 15:37 08/29/17 15:56 Decadron 4 Mg/Ml Sdv IM 08/29/17 15:38 4 mg ONCE STA Administration Vital Signs: Temp Pulse Resp BP Pulse Ox 08/29/17 15:33 97.8 F 84 20 127/74 95 Departure - Departure Time of Disposition: 16:50 (LABS DISCUSSED COPIES GIVEN TO THE PT) Disposition: HOME SELF-CARE Discharge Problem: Cough, Viral syndrome Instructions: Viral Syndrome (ED) Condition: Good Pt referred to PMD for follow-up: Yes IPMP verified?: No Additional Instructions: Please call your Family Physician as soon as possible to schedule a follow-up appointment. Allergies/Adverse Reactions: Allergies codeine Adverse Reaction (Verified 08/29/17 15:38) Iodinated Contrast- Oral and IV Dye [Iodinated Contrast Media - IV Dye] Adverse Reaction (Verified 08/29/17 15:38) levofloxacin [From Levaquin] Adverse Reaction (Verified 08/29/17 15:38) Home Medications: Ambulatory Orders Aspirin [Aspirin EC] 81 mg PO DAILYWM 03/17/15 Furosemide [Lasix Tab] 40 mg PO DAILY 03/17/15 Glipizide [Glucotrol] 10 mg PO DAILY 03/17/15 Insulin Glargine,Hum.rec.anlog [Lantus] 50 unit SUBCUT BEDTIME 03/17/15 Metformin HCl [Fortamet] 500 mg PO BID 03/17/15 Quinapril HCl 40 mg PO DAILY 03/17/15 Carvedilol [Coreg] 3.125 mg PO BIDWM 05/27/16 Multivitamin/Iron/Folic Acid [Centrum Complete Multivit Tab] 1 tab PO DAILY [place]-3 Fatty Acids/Fish Oil [Fish Oil 1,000 mg Capsule] 1 cap PO DAILY Potassium Bicarbonate/Cit AC [Potassium 25 Meq Tablet Eff] 99 mg PO DAILY Disposition Discussed With: Patient, Family
== END 2017-08-29 17:30 | disposition home or self-care (01) ==
LOC: ED 15:33
DX: B34.9 Viral infection, unspecified (principal); R05 Cough; R06.02 Shortness of breath; I25.810 Atherosclerosis of coronary artery bypass graft(s) without angina pectoris; E11.9 Type 2 diabetes mellitus without complications; I10 Essential (primary) hypertension; Z79.899 Other long term (current) drug therapy
CPT/HCPCS: 36415; 80053; 82550; 82553; 82803; 83880; 84145; 84484; 85025; 87040; 93005; 93010; 96372; 99283

== ENCOUNTER 2017-09-08 10:51 | Outpatient (CLI) | payer OTHER | END 2017-09-08 10:52 | disposition home or self-care (01) | LOC: RHC-LAB 10:51 | PROVIDERS: ATTEND Nurse Practitioner Family | DX: J02.9 Acute pharyngitis, unspecified (principal) | CPT/HCPCS: 87651 ==

== ENCOUNTER 2017-09-10 13:24 | Inpatient (IN) | payer OTHER ==
[2017-09-10 13:29] VITALS: BMI 30.7
--- NOTE | 2017-09-10 14:18 | CT ---
EXAM: Noncontrast CT of the chest HISTORY: Productive cough COMPARISON: 08/29/2017 chest x-ray, 07/03/2016 CT TECHNIQUE: Noncontrast CT of the chest FINDINGS: A small right lower lobe subpleural bleb is seen. A superior left lower lobe calcified granuloma is again seen. There is mild peribronchial wall thickening. Minimal right lower lobe ground-glass opaci ty is seen. No focal consolidation, pleural effusion or pneumothorax is seen. Heart size is normal. Atherosclerotic calcifications are seen including coronary arteries. No media stinal lymphadenopathy is seen. Calcified hilar lymph nodes are present. Hepatic and splenic calcified granulomas are seen. The gallbladder has been removed. There are mild degenerative change of the thoracic spine. IMPRESSION: Mild peribronchial wall thickening suggesting bronchitis/bronchiolitis. Minimal right lower lobe atelectasis or pneumonitis. Atherosclerosis including coronary arteries. Evidence of prior granulomatous infection.
[2017-09-10] MEDS ORDERED: ROCEPHIN 1 GM in SODIUM CHLORIDE 50 ML IV STA (14:34)
--- NOTE | 2017-09-10 14:37 | ED.PDOC ---
General ED Provider: Dr. JEFE HOLM-ER Chief Complaint: Cough Stated Complaint: was seen in the clinic last week with prod cough--worse today Time Seen by Physician: 13:30 Mode of Arrival: Walk-In Information Source: Patient Exam Limitations: No limitations Nursing and Triage Documentation Reviewed and Agree: Yes Reviewed sepsis parameters & appropriate labs ordered?: Yes System Inflammatory Response Syndrome: Not Applicable Sepsis Protocol: For patient's 13 years and over: Temp is 96.8 and below OR 101 and greater Pulse >90 BPM Resp >20/minute Acutely Altered Mental Status Are patient's symptoms suggestive of a new infection, such as: -Pneumonia -Skin, Soft Tissue -Endocarditis -UTI -Bone, Joint Infection -Implantable Device -Acute Abdominal Infection -Wound Infection -Meningitis -Blood Stream Catheter Infection -Unknown Respiratory Complaint Exam - Respiratory Complaint/Exam Onset/Duration: 2 days Symptoms Are: Still present Timing: Intermittent Initial Severity: Mild Current Severity: Moderate Location: Chest Character: Reports: Productive cough Aggravating: Reports: URI Alleviating: Reports: None Associated Signs and Symptoms: Denies: Rapid breathing, Dyspnea, Fever, Chills, Chest pain, Pleuritic chest pain, Wheezing, Hemoptysis, Dizziness, Calf pain, Calf swelling, Edema, URI, Nasal congestion, Hoarseness, Sinus discomfort, Vomiting, Sore throat, Weight loss, Decreased oral intake, Increased thirst, Increased appetite Status Asthmaticus Risk Factors: Reports: None Home Oxygen Use: No Recent Stress Test: No Recent Echo/LV Function: No Current Antibiotic Use: Yes Current Asthma Medication Use: No Respiratory Distress: None Inadequate Respiratory Effort: No Dysphagia Present: No Stridor Present: No JVD Present: No Accessory Muscle Use: No Retractions: Not Present Diminished Breath Sounds: No Sinus Tenderness: None Grunting Respirations: No Kussmaul Respirations: No Differential Diagnoses: Pneumonia, Bronchitis Non-Traumatic Chest Pain Syncope: EKG Performed Review of Systems - Review Of Systems Constitutional: Reports: Weakness, Loss of appetite Eyes: Reports: No symptoms Ears, Nose, Mouth, Throat: Reports: No symptoms Respiratory: Reports: Cough, Short of air Cardiac: Reports: No symptoms GI: Reports: No symptoms : Reports: No symptoms Musculoskeletal: Reports: No symptoms Skin: Reports: No symptoms Neurological: Reports: No symptoms Endocrine: Reports: No symptoms Hematologic/Lymphatic: Reports: No symptoms All Other Systems: Reviewed and Negative Past Medical History - Past Medical History Previously Healthy: No Endocrine: Reports: DM 2 Cardiovascular: Reports: CAD, Hypertension, CHF Respiratory: Reports: Pneumonia Hematological: Reports: None Gastrointestinal: Reports: None Genitourinary: Reports: None Neuro/Psych: Reports: None Musculoskeletal: Reports: None Cancer: Reports: None Last Menstrual Period: none - Surgical History General Surgical History: Reports: None, Hysterectomy (partial hystrectomy ), Cholecystectomy. Denies: CABG (hearth cath ) - Family History Family History: Reports: None - Social History Smoking Status: Former smoker Hx Substance Use: No Alcohol Screening: None Lives: With family Physical Exam - Physical Exam Appearance: Well-appearing, No pain distress, Well-nourished Eyes: EVGENY ENT: Ears normal, Nose normal, Oropharynx normal Neck: Supple Respiratory: Airway patent, Crackles, Rhonchi Cardiovascular: RRR GI/: Soft, Nontender, No masses, Bowel sounds normal, No Organomegaly Musculoskeletal: Normal strength Skin: Warm Neurological: Sensation intact, Motor intact, Reflexes intact, Cranial nerves intact, Alert, Oriented Psychiatric: Affect appropriate, Mood appropriate Interpretation - Radiology Interpretation Radiology Interpretation By: Radiologist Radiology Results: Positive Exam Interpreted: CT Scan Xray Comments: minimal pneumonia Radiology Interpretation By: Radiologist - EKG Interpretation Time of EKG #1: 13:50 Rate: Normal Rhythm: Sinus Ectopy: None [place]: NL ST Segment: Normal Interpretation: nsr Physician Notification - Case Discussed Physician Notified: dr agarwal Time of Notification: 14:43 Critical Care Note - Critical Care Note Total Time (mins): 0 Course - Course Hematology/Chemistry: 09/10/17 13:47 09/10/17 13:47 Orders, Labs, Meds: Lab Review 09/10/17 09/10/17 09/10/17 13:35 13:47 13:47 WBC 7.04 RBC 4.14 L Hgb 12.4 Hct 36.1 L MCV 87.2 MCH 30.0 MCHC 34.3 RDW Coeff of Robbie 13.4 Plt Count 210 Immature Gran % (Auto) 0.1 Neut % (Auto) 64.7 Lymph % (Auto) 24.4 [place] % (Auto) 6.7 Eos % (Auto) 3.7 Baso % (Auto) 0.4 Immature Gran # (Auto) 0.0 Neut # (Auto) 4.6 Lymph # (Auto) 1.7 [place] # (Auto) 0.5 Eos # (Auto) 0.3 Baso # (Auto) 0.0 Puncture Site Lrad O2 Saturation 97.0 ABG pH 7.503 H* ABG pCO2 31.6 L ABG pO2 81.0 L ABG HCO3 24.8 ABG Total CO2 26 ABG Base Excess 2 [place] Test + FiO2 % 21.0 Sodium 139 Potassium 3.8 Chloride 104 Carbon Dioxide 23 Anion Gap 15.8 BUN 18 Creatinine 1.10 Estimated GFR (MDRD) 61.00 BUN/Creatinine Ratio 16.36 Glucose 206 H Calcium 8.5 Total Bilirubin 0.4 AST 19 ALT 18 Alkaline Phosphatase 71 Total Creatine Kinase CK-MB (CK-2) CK-MB (CK-2) % Troponin I B-Natriuretic Peptide Total Protein 7.0 Albumin 3.9 Globulin 3.1 Albumin/Globulin Ratio 1.26 Influ A Molecular Assay Influ B Molecular Assay 09/10/17 09/10/17 09/10/17 13:47 13:47 13:47 WBC RBC Hgb Hct MCV MCH MCHC RDW Coeff of Robbie Plt Count Immature Gran % (Auto) Neut % (Auto) Lymph % (Auto) [place] % (Auto) Eos % (Auto) Baso % (Auto) Immature Gran # (Auto) Neut # (Auto) Lymph # (Auto) [place] # (Auto) Eos # (Auto) Baso # (Auto) Puncture Site O2 Saturation ABG pH ABG pCO2 ABG pO2 ABG HCO3 ABG Total CO2 ABG Base Excess [place] Test FiO2 % Sodium Potassium Chloride Carbon Dioxide Anion Gap BUN Creatinine Estimated GFR (MDRD) BUN/Creatinine Ratio Glucose Calcium Total Bilirubin AST ALT Alkaline Phosphatase Total Creatine Kinase 405 CK-MB (CK-2) 4.5 H CK-MB (CK-2) % 1.04303 Troponin I 0.0190 B-Natriuretic Peptide 69 Total Protein Albumin Globulin Albumin/Globulin Ratio Influ A Molecular Assay Negative by naat Influ B Molecular Assay Negative by naat Orders Category Date Time Status ABG DRAW REQUEST Stat CARDIO 09/10/17 13:35 Completed EKG-(ED ONLY) Stat CARDIO 09/10/17 13:35 Completed ABG Stat LAB 09/10/17 13:35 Completed BLOOD CULTURE (ED ONLY) Stat LAB 09/10/17 13:47 Received BNP [B-TYPE NATRIURETIC PEPTIDE] Stat LAB 09/10/17 13:47 Completed CBC W/ AUTO DIFF Stat LAB 09/10/17 13:47 Completed COMPREHENSIVE METABOLIC PANEL Stat LAB 09/10/17 13:47 Completed CREATINE KINASE Stat LAB 09/10/17 13:47 Completed FLU A/B MOLECULAR Stat LAB 09/10/17 13:47 Completed TROPONIN I Stat LAB 09/10/17 13:47 Completed Ceftriaxone Sodium [Rocephin] MEDS 09/10/17 14:39 Discontinued 1 gm .ROUTE .STK-MED ONE Ceftriaxone Sodium [Rocephin] 1 gm MEDS 09/10/17 14:34 Active 0.9 % Sodium Chloride [Sodium Chloride] [address] CHEST W/O CONTRAST Stat RADS 09/10/17 13:36 Completed Medications Generic Name Dose Route Start Last Admin Trade Name Freq PRN Reason Stop Dose Admin Ceftriaxone Sodium 1 gm/ 50 mls @ 75 mls/hr 09/10/17 14:34 Sodium Chloride IV 09/10/17 15:13 ONCE STA Vital Signs: Temp Pulse Resp BP Pulse Ox 09/10/17 13:26 98.9 F 91 H 20 128/84 98 Departure - Departure Time of Disposition: 14:43 Disposition: ADMITTED INPATIENT Discharge Problem: Pneumonia Qualifiers: Pneumonia type: due to unspecified organism Laterality: right Lung location: lower lobe of lung Qualified Code(s): J18.1 - Lobar pneumonia, unspecified organism Instructions: Pneumonitis (ED) Condition: Good Pt referred to PMD for follow-up: No IPMP verified?: No Allergies/Adverse Reactions: Allergies codeine Adverse Reaction (Verified 09/10/17 13:30) Iodinated Contrast- Oral and IV Dye [Iodinated Contrast Media - IV Dye] Adverse Reaction (Verified 09/10/17 13:30) levofloxacin [From Levaquin] Adverse Reaction (Verified 09/10/17 13:30) Home Medications: Ambulatory Orders Aspirin [Aspirin EC] 81 mg PO DAILYWM 03/17/15 Furosemide [Lasix Tab] 40 mg PO DAILY 03/17/15 Glipizide [Glucotrol] 10 mg PO DAILY 03/17/15 Insulin Glargine,Hum.rec.anlog [Lantus] 50 unit SUBCUT BEDTIME 03/17/15 Metformin HCl [Fortamet] 500 mg PO BID 03/17/15 Quinapril HCl 40 mg PO DAILY 03/17/15 Carvedilol [Coreg] 3.125 mg PO BIDWM 05/27/16 Multivitamin/Iron/Folic Acid [Centrum Complete Multivit Tab] 1 tab PO DAILY [place]-3 Fatty Acids/Fish Oil [Fish Oil 1,000 mg Capsule] 1 cap PO DAILY Potassium Bicarbonate/Cit AC [Potassium 25 Meq Tablet Eff] 99 mg PO DAILY Isosorbide Mononitrate [Isosorbide Mononitrate Er] 30 mg PO DAILY 09/08/17 Ranitidine HCl 150 mg PO DAILY 09/08/17 Disposition Discussed With: Patient
[2017-09-10] MEDS ORDERED: ROCEPHIN ONE (14:39)
[2017-09-10] MEDS ORDERED: TYLENOL PO PRN (14:48)
[2017-09-10] MEDS ORDERED: TESSALON PERLES PO PRN (14:51)
[2017-09-10] MEDS ORDERED: ALBUTEROL 0.083% NEB NEB STA (16:47)
[2017-09-10] MEDS ORDERED: ALBUTEROL 0.042% NEB NEB SCH (17:00)
[2017-09-10] MEDS ORDERED: COREG PO SCH ×2 (17:30→21:00)
[2017-09-10] MEDS: ALBUTEROL 0.083% NEB NEB SCH (20:10)
[2017-09-10] MEDS: DOXY-100 100 MG in SODIUM CHLORIDE 100 ML IV SCH (20:40)
[2017-09-10] MEDS: LANTUS SUBCUT SCH (20:40)
[2017-09-10] MEDS ORDERED: LANTUS SUBCUT SCH (21:00)
[2017-09-11] MEDS ORDERED: TYLENOL PO STA (04:02)
[2017-09-11] MEDS: ALBUTEROL 0.083% NEB NEB SCH ×4 (05:12→19:51)
[2017-09-11] MEDS ORDERED: NON-FORMULARY MEDICATION (Glipizide [Glucotrol] 10 MG) PO SCH (09:00)
[2017-09-11] MEDS: IMDUR PO SCH (09:17)
[2017-09-11] MEDS: ACCUPRIL PO SCH (09:17)
[2017-09-11] MEDS: COREG PO SCH ×2 (09:18→17:12)
[2017-09-11] MEDS: LASIX TAB PO SCH (09:18)
[2017-09-11] MEDS: ROCEPHIN 1 GM in SODIUM CHLORIDE 50 ML IV SCH (09:18)
[2017-09-11] MEDS: ZANTAC PO SCH (09:18)
[2017-09-11] MEDS: LOVENOX SUBCUT SCH (09:19)
[2017-09-11] MEDS: KLOR CON EF PO SCH (09:19)
[2017-09-11] MEDS: ASPIRIN EC PO SCH (09:19)
[2017-09-11] MEDS: DOXY-100 100 MG in SODIUM CHLORIDE 100 ML IV SCH ×2 (10:41→21:08)
[2017-09-11] MEDS: FLONASE NAS SCH ×2 (10:50→21:08)
--- NOTE | 2017-09-11 12:51 | PN ---
DATE OF VISIT: 09/10/17 SUBJECTIVE: 61-year-old black female admitted to the hospital because of shortness of breath. The patient presented to [facility] Monday and was given a shot of steroids, a prescription for antibiotic and cough medication, Tescelineon Perltien. She was prescribed Amoxicillin 500 mg twice a day. Chest CT showed some abnormality, right lower lobe pneumonia, questionable, bronchitis or bronchiolitis. Arterial blood gases pH 7.503, p02 81, pc02 31.6, oxygen saturation 97. This patient seemed to be hyperventilating. This patient did not have fever or muscular aches in the beginning. All symptoms began on Monday. OBJECTIVE: Temperature in the Emergency Room 98.9, pulse 91, oxygen saturation 98, respiratory rate 20, BP 128/84. LUNGS: Breath sounds are diminished on both sides but no obvious rales and no wheezing. HEART: Audible and regular with good tones. ABDOMEN: Nontender. The patient is also diabetic and taking insulin, Glargine 52 units subcutaneously near bedtime. The patient is on Glipizide and this will be discontinued. I would order a plasma C-Peptide level, GAD65 Autoantibody and also a fasting insulin probably Monday since no Lantus will be given tomorrow. SHAYAND
[2017-09-11] MEDS ORDERED: MOTRIN PO PRN (15:41)
[2017-09-11] MEDS: GLUCOPHAGE PO SCH (17:15)
[2017-09-11] MEDS: LANTUS SUBCUT SCH (21:08)
[2017-09-12] MEDS ORDERED: ALBUTEROL 0.083% NEB NEB STA (01:35)
[2017-09-12] MEDS: ALBUTEROL 0.083% NEB NEB SCH ×4 (05:17→21:50)
[2017-09-12] MEDS: ZANTAC PO SCH (05:36)
[2017-09-12] MEDS: LASIX TAB PO SCH (05:36)
[2017-09-12] MEDS: ROCEPHIN 1 GM in SODIUM CHLORIDE 50 ML IV SCH (08:56)
[2017-09-12] MEDS: ASPIRIN EC PO SCH (08:57)
[2017-09-12] MEDS: COREG PO SCH ×2 (08:57→17:45)
[2017-09-12] MEDS: ACCUPRIL PO SCH (08:57)
[2017-09-12] MEDS: FLONASE NAS SCH ×2 (08:58→20:42)
[2017-09-12] MEDS: GLUCOPHAGE PO SCH ×2 (08:58→16:50)
[2017-09-12] MEDS: IMDUR PO SCH (08:59)
[2017-09-12] MEDS: LOVENOX SUBCUT SCH (09:00)
[2017-09-12] MEDS: DOXY-100 100 MG in SODIUM CHLORIDE 100 ML IV SCH ×2 (10:01→20:42)
[2017-09-12] MEDS ORDERED: NON-FORMULARY MEDICATION (Metformin Hcl [Fortamet] 500 MG) PO SCH (10:15)
[2017-09-12] MEDS: KLOR CON EF PO SCH (11:02)
[2017-09-12] MEDS: LANTUS SUBCUT SCH (20:43)
[2017-09-13] MEDS: ALBUTEROL 0.083% NEB NEB SCH ×4 (04:35→20:22)
[2017-09-13] MEDS: ZANTAC PO SCH (05:41)
[2017-09-13] MEDS: LASIX TAB PO SCH (05:42)
[2017-09-13] MEDS: ROCEPHIN 1 GM in SODIUM CHLORIDE 50 ML IV SCH (09:05)
[2017-09-13] MEDS: ASPIRIN EC PO SCH (09:09)
[2017-09-13] MEDS: ACCUPRIL PO SCH (09:09)
[2017-09-13] MEDS: COREG PO SCH ×2 (09:11→16:58)
[2017-09-13] MEDS: IMDUR PO SCH (09:11)
[2017-09-13] MEDS: FLONASE NAS SCH ×2 (09:11→21:19)
[2017-09-13] MEDS: GLUCOPHAGE PO SCH ×2 (09:11→16:58)
[2017-09-13] MEDS: LOVENOX SUBCUT SCH (09:12)
[2017-09-13] MEDS: DOXY-100 100 MG in SODIUM CHLORIDE 100 ML IV SCH ×2 (10:01→21:10)
[2017-09-13] MEDS: LANTUS SUBCUT SCH (21:11)
[2017-09-14] MEDS: ALBUTEROL 0.083% NEB NEB SCH ×3 (04:53→14:00)
[2017-09-14] MEDS: LASIX TAB PO SCH (06:45)
[2017-09-14] MEDS: ZANTAC PO SCH (06:45)
[2017-09-14] MEDS: IMDUR PO SCH (09:13)
[2017-09-14] MEDS: ASPIRIN EC PO SCH (09:13)
[2017-09-14] MEDS: COREG PO SCH ×2 (09:14→17:04)
[2017-09-14] MEDS: ACCUPRIL PO SCH (09:14)
[2017-09-14] MEDS: ROCEPHIN 1 GM in SODIUM CHLORIDE 50 ML IV SCH (09:15)
[2017-09-14] MEDS: GLUCOPHAGE PO SCH ×2 (09:15→17:04)
[2017-09-14] MEDS: LOVENOX SUBCUT SCH (09:16)
[2017-09-14] MEDS: FLONASE NAS SCH (09:51)
[2017-09-14] MEDS: DOXY-100 100 MG in SODIUM CHLORIDE 100 ML IV SCH (10:00)
--- NOTE | 2017-09-14 10:04 | DI ---
Exam: Two x-rays of the chest. Comparison: 08/29/2017. Chest CT performed 09/10/2017. Reason for exam: Follow-up pneumonia. FINDINGS: No pneumothorax, pleural effusion, or focal consolidation. The cardiac silhouette is not enlarged. The imaged osseous structures appear grossly unremarkable without acute fracture. Impression: No acute cardiopulmonary process.
[2017-09-14 10:05] VITALS: TEMP 98.5
[2017-09-14 14:51] VITALS: BP 107/66
--- NOTE | 2017-11-07 13:14 | HP ---
DATE OF SERVICE: 09/10/17 CHIEF COMPLAINT: Cough and shortness of breath. HISTORY OF PRESENT ILLNESS: The patient, two days prior to presentation to the emergency room, was seen at the clinic, [place] and was given steroid injection plus a prescription of Amoxicillin 500 mg twice a day. She also was prescribed Tessalon Perles for cough. The patient, however, came to the emergency room because of the increasing shortness of breath and persistent cough. The patient during the course of the examination to the emergency room was felt to require admission to the hospital because of a probable pneumonia. The chest CT showed peribronchial thickening probably secondary to bronchitis or bronchiolitis and right lower lobe infiltrate probably atelectasis versus pneumonitis. Temperature at the emergency room was 98.9. Respiratory rate was 20. Arterial blood gases showed respiratory alkalosis at 7.503 and PCO of 31.6 , PO2 81.0 and oxygen saturation 97 and FIO2 21. CBC showed normal WBC, normal platelet count, slightly lower RBC. The patient was then admitted with the above diagnosis. PAST PERSONAL HISTORY: The patient's medical problems are hypertension, diabetes, congestive heart failure and pneumonia. Surgical history of hysterectomy, cardiac catheterization and cholecystectomy. She also had cataract extraction, COPD and previous pneumonia times two in 2016. FAMILY HISTORY: Father had myocardial infarction. Paternal CVA. SOCIAL HISTORY: The patient is single and previous smoker and had stopped several years ago and no alcoholic beverages. MEDICATIONS: Prior to this admission are the following: Quinapril 40 mg daily Glipizide 10 mg daily Lantus 52 units at bedtime Lasix 40 mg daily Aspirin 81 mg daily Metformin 500 mg twice a day Carvedilol 3.125 mg twice a day Multivitamin Centrum complete one daily Potassium bicarbonate 25 mEq tablet daily [place] 3 Fatty Acid one cap daily Ranitidine 150 mg daily Imdur 30 mg daily Tessalon Perle 100 mg capsule three times a day as needed ALLERGIES: Codeine, Iodine contrast-oral or IV and Levofloxacin REVIEW OF SYSTEMS: CONSTITUTIONAL: The patient had no fever or chills, but is tired because of cough and shortness of breath. 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 She denies any ataxia on ambulation. VISUAL: The patient denies any double vision, blurred or loss of vision. AUDITORY: Hearing is adequate. Denies any tinnitus, pain or drainage. RESPIRATORY: The patient has cough which is increasing with increasing shortness of breath. CARDIOVASCULAR: The patient denies any chest pain or chest tightness. No diaphoresis. GASTROINTESTINAL: The patient's appetite is decreased, but no nausea or dysphagia or abdominal pain or diarrhea. GENITOURINARY: Denies any pain on urination. MUSCULOSKELETAL: Denies any significant joint pains or body aches. ENDOCRINE: The patient has diabetes mellitus type 1 and a half or type III. No polydipsia or polyuria. INTEGUMENT: Denies any rash or pruritus. HEMATOLOGIC: No history of prolonged bleeding. PSYCHIATRIC: Affect appears to be normal. PHYSICAL EXAMINATION: GENERAL: We have a 61 year old black female admitted to the hospital with a diagnosis of bronchiolitis or right lower lobe pneumonitis. She does have cough with increasing frequency and increasing shortness of breath since the last two days. The patient is not dyspneic, nor tachypneic at rest. VITAL SIGNS: On admission at the floor at 3:16 p.m. showed a temperature of 98, pulse 84, blood pressure 115/74, respiratory rate 20, oxygen saturation 99 at room air. The patient is 5'6", 190 pounds and 7.6 ounces. BMI 30. HEAD: Unremarkable. Scalp with no active dermatitis. FACE: Symmetrical and equal with no facial redness and facial weakness. There is no significant tenderness to palpation under pressure in the frontal or maxillary sinus areas. EYES: Pupils equal/reactive to light. Conjunctivae not pale. Sclerae not icteric. MOUTH: Unremarkable. THROAT: No inflammation, tumors or exudate. NECK: No masses. No bruit. No tenderness. No rigidity. CHEST: Essentially symmetrical and equal with good expansion and no remarkable tenderness. LUNGS: Breath sounds are diminished in both sides with no rales or wheezing. HEART: Audible and regular with good tones. No murmurs. ABDOMEN: Soft, nontender. No masses palpable. Bowel sounds are active. EXTERNAL GENITALIA: Not examined. PELVIC AND RECTAL: Not performed. LOWER EXTREMITIES: Essentially symmetrical and equal with no significant edema. Pedal pulses difficult to find. UPPER EXTREMITIES: Symmetrical and equal. ASSESSMENT: 1. RIGHT LOWER LOBE PNEUMONITIS 2. BRONCHIOLITIS 3. HISTORY OF DIABETES MELLITUS CONTROL UNDETERMINED 4. HYPERTENSION 5. CORONARY ARTERY DISEASE 6. ELEVATED BMI MTDD
--- NOTE | 2017-11-07 14:45 | DS ---
DATE OF SERVICE: 09/14/17 PATIENT IDENTIFICATION: 61 year old black female admitted to the hospital because of increasing cough and shortness of breath. The patient had diminished breath sounds. She is a known smoker, but had stopped some years ago. She had previous pneumonitis in the past. HOSPITAL COURSE: Physical examination revealed an alert individual who is not in acute distress at rest. VITAL SIGNS: On admission were normal. LUNGS: Diminished breath sounds in both sides, but no obvious rales or wheezing. The chest CT however was abnormal indicating peribronchial wall thickening suggesting bronchitis versus bronchiolitis. Minimal right lower lobe atelectasis or pneumonitis. CBC showed mild anemia. Initial arterial blood gases showed respiratory alkalosis, but that has returned to normal on repeat on the day of discharge. The blood sugars were gradually trending down. It was 206 admission and down to between 152 to 168. The A1C was 7.9. The patient's CK was 405 and MB was 4.5 above normal and the Troponin is normal at 0.090 and the BNP is 69. The patient during this hospitalization had GUANAKO 65 autoantibody less than 5 U/ml, plasma C-Peptide level 1.2, lowest normal. Influenza A antibody is 1:64 and the B was negative. Both influenza A and B by nuclear amplification were negative. The patient was treated with Rocephin 1 gram IV daily and the patient's vital signs, temperature remained normal throughout her hospital stay and the blood pressure was stable and the oxygen saturation was satisfactory throughout the hospital stay. The patient's chest x-ray at the time and day of discharge was without any acute cardiopulmonary processes. LUNGS: The lungs still has no rales, although the breath sounds are diminished. VITAL SIGNS: At discharge, temperature at 2 p.m. on 09/14/2017 showed at 98.5, pulse 81, blood pressure 107/66, respiratory rate 16, oxygen saturation 98 at room air. FINAL DIAGNOSES: 1. RIGHT LOWER LOBE PNEUMONITIS, IMPROVED 2. BRONCHIOLITIS, IMPROVED 3. HYPERTENSION CONTROLLED 4. DIABETES MELLITUS TYPE II NEAR GOOD CONTROL 5. CORONARY ARTERY DISEASE, STABLE PLAN: 1. The patient is prescribed Omnicef 300 mg every 12 hours. 2. Resume all previous medications. 3. Follow up with primary care in five to seven days. 4. Return to the ER if with further concerns or problems. KATINA
== END 2017-09-14 17:47 | disposition home or self-care (01) | DRG 194 ==
LOC: ED 13:24 → MEDSURG B 14:47
PROVIDERS: ADMIT General Practice; ATTEND General Practice
DX: J18.1 Lobar pneumonia, unspecified organism (principal); E87.3 Alkalosis; J21.9 Acute bronchiolitis, unspecified; R06.02 Shortness of breath; R05 Cough; R53.1 Weakness; I50.9 Heart failure, unspecified; E11.9 Type 2 diabetes mellitus without complications; I10 Essential (primary) hypertension; I25.10 Atherosclerotic heart disease of native coronary artery without angina pectoris; Z79.4 Long term (current) use of insulin; Z79.899 Other long term (current) drug therapy
CPT/HCPCS: 36415; 80053; 81001; 82550; 82553; 82803; 82962; 83036; 83519; 83880; 84145; 84484; 84681; 85025; 86710; 87040; 87502; 93005; 93010; 94640; 96365; 99223; 99232; 99239; 99284

== ENCOUNTER 2017-09-16 03:25 | Emergency (ER) | payer OTHER ==
[2017-09-16 03:37] VITALS: TEMP 98; BMI 30.4
[2017-09-16] MEDS ORDERED: DECADRON 4 MG/ML SDV IM STA (03:53)
[2017-09-16 04:20] VITALS: BP 144/87
--- NOTE | 2017-09-16 04:34 | DI ---
EXAM: PA and lateral views of the chest. HISTORY: Cough. FINDINGS: The bones are unremarkable. The cardiac silhouette and pulmonary vasculature are within no rmal limits. The costophrenic angles are clear. No infiltrate or consolidation. Impression: No acute cardiopulmonary disease.
[2017-09-16] MEDS ORDERED: ROBITUSSIN AC SYRUP PO STA (05:06)
[2017-09-16] MEDS ORDERED: KEFLEX PO STA (05:06)
[2017-09-16] MEDS ORDERED: TORADOL ONE (05:12)
[2017-09-16] MEDS ORDERED: TORADOL IM STA (05:12)
--- NOTE | 2017-09-16 05:12 | ED.PDOC ---
General ED Provider: Dr. EBONIE MCKINNEY Chief Complaint: Respiratory Complaint Stated Complaint: Patient was released from the hospital on , she was here for the Pneumonia anad COPD exacerbation. she is still coughing, hurts to breath, Time Seen by Physician: 05:09 Mode of Arrival: Walk-In Information Source: Patient Nursing and Triage Documentation Reviewed and Agree: Yes Reviewed sepsis parameters & appropriate labs ordered?: No System Inflammatory Response Syndrome: Not Applicable Sepsis Protocol: For patient's 13 years and over: Temp is 96.8 and below OR 101 and greater Pulse >90 BPM Resp >20/minute Acutely Altered Mental Status Are patient's symptoms suggestive of a new infection, such as: -Pneumonia -Skin, Soft Tissue -Endocarditis -UTI -Bone, Joint Infection -Implantable Device -Acute Abdominal Infection -Wound Infection -Meningitis -Blood Stream Catheter Infection -Unknown Respiratory Complaint Exam - Shortness of Air Complaint/Exam Symptoms Are: Still present Timing: Constant Initial Severity: Mild Current Severity: Mild Character: Reports: Dyspnea at rest Alleviating: Reports: None Associated Signs and Symptoms: Reports: Cough, Chest pain. Denies: Wheezing, Chest pain with cough, Fever, Chills, Diaphoresis, Nasal congestion, Dizziness, Calf pain, Calf swelling, Edema, Rapid breathing, Labored breathing, Decreased intake Related History: Reports: Similar episode History of Healthcare-Acquired Pneumonia: No Pulmonary Embolism Risk Factors: Reports: None Cardiac Risk Factors: Reports: None Pseudomonas Risk Factors: Reports: None Tuberculosis Risk Factors: Reports: None Home Oxygen Use: No Recent Stress Test: No Recent Echo/LV Function: No Respiratory Distress: None Stridor Present: No Tracheal Deviation: No Subcutaneous Emphysema: No Accessory Muscle Use: No Retractions: Not Present Diminished Breath Sounds: No Prolonged Expiratory Phase: No Unable to Speak Full Sentences: Yes Fatigue: No Leg Swelling: No Laurence's Sign Present: No Differential Diagnoses: Pneumonia, Bronchitis Review of Systems - Review Of Systems Constitutional: Reports: No symptoms Eyes: Reports: No symptoms Ears, Nose, Mouth, Throat: Reports: No symptoms Respiratory: Reports: Cough, Short of air Cardiac: Reports: No symptoms GI: Reports: No symptoms : Reports: No symptoms Musculoskeletal: Reports: No symptoms Skin: Reports: No symptoms Neurological: Reports: No symptoms Endocrine: Reports: No symptoms Hematologic/Lymphatic: Reports: No symptoms All Other Systems: Reviewed and Negative Past Medical History - Past Medical History Previously Healthy: No Endocrine: Reports: DM 2 Cardiovascular: Reports: CAD, Hypertension, CHF Respiratory: Reports: Pneumonia Hematological: Reports: None Gastrointestinal: Reports: None Genitourinary: Reports: None Neuro/Psych: Reports: None Musculoskeletal: Reports: None Cancer: Reports: None Last Menstrual Period: hysterectomy - Surgical History General Surgical History: Reports: None, Hysterectomy (partial hystrectomy ), Cholecystectomy. Denies: CABG (hearth cath ) - Family History Family History: Reports: None - Social History Smoking Status: Former smoker Hx Substance Use: No Alcohol Screening: None - Immunizations Tetanus Shot up to Date: No Physical Exam - Physical Exam Appearance: Well-appearing, No pain distress, Well-nourished Eyes: EVGENY, EOMI, Conjunctiva clear ENT: Ears normal, Nose normal, Oropharynx normal Respiratory: Airway patent, Breath sounds clear, Breath sounds equal, Respirations nonlabored Cardiovascular: RRR, Pulses normal, No rub, No murmur GI/: Soft, Nontender, No masses, Bowel sounds normal, No Organomegaly Musculoskeletal: Normal strength, ROM intact, No edema, No calf tenderness Skin: Warm, Dry, Normal color Neurological: Sensation intact, Motor intact, Reflexes intact, Cranial nerves intact, Alert, Oriented Psychiatric: Affect appropriate, Mood appropriate Critical Care Note - Critical Care Note Total Time (mins): 30 Course - Course Orders, Labs, Meds: Orders Category Date Time Status Cephalexin [Keflex] MEDS 09/16/17 05:06 Discontinued 500 mg PO ONCE STA Dexamethasone 4 mg/ml Inj [Decadron 4 mg/ml Sdv] MEDS 09/16/17 03:53 Discontinued 4 mg IM ONCE STA Guaifenesin/Codeine Phosphate [Robitussin AC Syrup] MEDS 09/16/17 05:06 Discontinued 10 ml PO ONCE STA CHEST, 2 VIEWS PA & LAT Stat RADS 09/16/17 03:54 Completed Medications Discontinued Medications Generic Name Dose Route Start Last Admin Trade Name Freq PRN Reason Stop Dose Admin Cephalexin 500 mg 09/16/17 05:06 Keflex PO 09/16/17 05:07 ONCE STA Dexamethasone Sodium Phosphate 4 mg 09/16/17 03:53 09/16/17 04:07 Decadron 4 Mg/Ml Sdv IM 09/16/17 03:54 4 mg ONCE STA Administration Guaifenesin/Codeine Phosphate 10 ml 09/16/17 05:06 Robitussin Ac Syrup PO 09/16/17 05:07 ONCE STA Vital Signs: Temp Pulse Resp BP Pulse Ox 09/16/17 04:19 79 28 H 144/87 H 96 09/16/17 03:25 98 F 83 24 149/93 H 95 Departure - Departure Time of Disposition: 05:12 Disposition: HOME SELF-CARE Discharge Problem: COPD exacerbation Condition: Stable Pt referred to PMD for follow-up: Yes IPMP verified?: No Additional Instructions: Take medication with food, Probiotics Yogurt f/u with PMD in 2-3 days Prescriptions: Azithromycin [Zithromax] 250 mg PO DIRECTED #6 tablet Codeine/Promethazine Syrup [Phenergan with Codeine 6.25/10 mg/5 ml] 5 ml PO Q8H #1 bottle Allergies/Adverse Reactions: Allergies codeine Adverse Reaction (Verified 09/16/17 03:35) Iodinated Contrast- Oral and IV Dye [Iodinated Contrast Media - IV Dye] Adverse Reaction (Verified 09/16/17 03:35) levofloxacin [From Levaquin] Adverse Reaction (Verified 09/16/17 03:35) Home Medications: Ambulatory Orders Aspirin [Aspirin EC] 81 mg PO DAILYWM 03/17/15 Furosemide [Lasix Tab] 40 mg PO DAILY 03/17/15 Glipizide [Glucotrol] 10 mg PO DAILY 03/17/15 Insulin Glargine,Hum.rec.anlog [Lantus] 52 unit SUBCUT BEDTIME 03/17/15 Metformin HCl [Fortamet] 500 mg PO BID 03/17/15 Quinapril HCl 40 mg PO DAILY 03/17/15 Carvedilol [Coreg] 3.125 mg PO BID 05/27/16 Multivitamin/Iron/Folic Acid [Centrum Complete Multivit Tab] 1 tab PO DAILY [place]-3 Fatty Acids/Fish Oil [Fish Oil 1,000 mg Capsule] 1 cap PO DAILY Potassium Bicarbonate/Cit AC [Potassium 25 Meq Tablet Eff] 25 meq PO DAILY 01/17 Isosorbide Mononitrate [Isosorbide Mononitrate ER] 30 mg PO DAILY 09/08/17 Ranitidine HCl 150 mg PO DAILY 09/08/17 Azithromycin [Zithromax] 250 mg PO DIRECTED #6 tablet 09/16/17 Codeine/Promethazine Syrup [Phenergan with Codeine 6.25/10 mg/5 ml] 5 ml PO Q8H #1 bottle 09/16/17 Disposition Discussed With: Patient, Family
[2017-09-16] MEDS ORDERED: ZITHROMAX PO STA (05:14)
== END 2017-09-16 05:40 | disposition home or self-care (01) ==
LOC: ED 03:25
DX: J44.1 Chronic obstructive pulmonary disease with (acute) exacerbation (principal); E11.9 Type 2 diabetes mellitus without complications; I25.10 Atherosclerotic heart disease of native coronary artery without angina pectoris; I10 Essential (primary) hypertension; I50.9 Heart failure, unspecified; Z79.899 Other long term (current) drug therapy
CPT/HCPCS: 96372; 99283

== ENCOUNTER 2017-09-18 16:05 | Outpatient (CLI) ==
--- NOTE | 2017-09-19 08:09 | DI ---
EXAM: Thoracolumbar spine two views HISTORY: Back pain FINDINGS: Compared to 09/16/2009 lumbar spine series There is sinusoidal scoliosis of the thoracolumbar spine convex to the right at the mid lumbar level estimated at approximately 8 degrees and a similar degree of curvature toward the left at the lower t horacic level. Mild degenerative endplate changes are seen. No fracture or loss of vertebral body h eight. General bone density within normal limits. IMPRESSION: 1. Scoliosis appears more noticeable than previously seen. 2. Mild degenerative endplate changes.
== END 2017-09-18 16:06 | disposition home or self-care (01) ==
LOC: RAD 16:05
PROVIDERS: ATTEND Emergency Medicine
DX: M54.9 Dorsalgia, unspecified (principal)

== ENCOUNTER 2017-10-17 08:52 | Outpatient (CLI) | payer OTHER | END 2017-10-17 08:53 | disposition home or self-care (01) | LOC: CAR 08:52 | PROVIDERS: ATTEND Physician Assistant | DX: R06.00 Dyspnea, unspecified (principal) ==

== ENCOUNTER 2017-11-02 07:53 | Outpatient (CLI) | payer OTHER ==
--- NOTE | 2017-11-02 10:10 | DI ---
EXAM: Lumbar spine three views HISTORY: Back pain COMPARISON: Lumbar spine 09/16/2009 FINDINGS: There is moderate generalized osteopenia. The lumbar vertebral bodies are normal in heigh t and alignment. Facet arthropathy is noted at L4-S1. There is mild ASVD. Clips are seen in the rig ht upper quadrant. IMPRESSION: No acute fracture or dislocation. Diffuse osteopenia. Sacralization of L5
--- NOTE | 2017-11-02 10:24 | DI ---
EXAM: Cervical spine three view HISTORY: Backache COMPARISON: None TECHNIQUE: Three-view cervical spine were performed FINDINGS: The vertebral bodies normal height. No fracture. No subluxation. Multilevel interverteb ral disc space narrowing with moderate intervertebral disc is narrowing C4-C5 and C6-C7. Multilevel marginal osteophyte formation. Multilevel facet and uncovertebral hypertrophy. Prevertebral soft ti ssues appear normal. Carotid atherosclerotic calcifications on the right. IMPRESSION: Chronic discogenic degenerative disease and facet arthrosis.
--- NOTE | 2017-11-02 10:34 | DI ---
EXAM: THORACIC SPINE HISTORY: Backache FINDINGS: Thoracic spine three-view. Compared to 09/18/2017. Stable scoliosis mostly convex to the left at the lower lumbar level. No loss of vertebral body height, fracture or spondylolisthesis. M inimal diffuse degenerative endplate changes. IMPRESSION: Scoliosis and mild degenerative endplate changes. No acute findings radiographically or notable change since previous exam.
== END 2017-11-02 07:54 | disposition home or self-care (01) ==
LOC: RAD 07:53
PROVIDERS: ATTEND Physician Assistant
DX: M54.9 Dorsalgia, unspecified (principal)

== ENCOUNTER 2017-11-08 11:00 | Outpatient (RCR) ==
--- NOTE | 2017-11-03 08:50 | RS.OPPTEV2 ---
Date of Note: 11/02/17 Visit #: 1 Date of Evaluation: 11/02/17 Payer Source: MEDICARE Surgery Performed?: No Treatment Diagnosis: mid back pain on R side, thoracogenic scoliosis of thoracolumbar region History of Condition/Mechanism of Injury:: pt states pain began approx 3 weeks ago. No definite injury. Prior Level of Function.....Patient was independent with: ADL's, Self Care, Ambulation/Mobility, Community Integration/Access Functional Limitations: Sleep, Reaching, Pushing, Pulling, Lifting, Carrying, Standing, Ambulation, Community Access/Integration Current Subjective/complaints:: pt states her pain is limiting her from walking and trying to do any work. Treatment Side (optional): Right *Precautions: n/a Medical History Medical History: Hypertension, Diabetes, CHF Surgical History Comments:: heart cath Smoking Status: Former smoker Diagnostic Testing/Imaging:: x rays on 09/18/17: scoliosis appears more noticeable than previously seen, mild degenerative endplate changes. 11/02/17: thoracic spine scoliosis and mild degenerative endplate changes. No notable change since previous exam. Hx Home Medications: metformin, glipizide, flurosene, fish oil, potassium. Patient's Goals: decrease pain and be able to walk for exercise and work in the yard Pain Assessment - Pain Description Pain Location: R thoracic/upper lumbar spine up into R scapula. Pain Description: Sharp, Aching, Chronic Current Pain Intensity: 8/10 Worst Pain Intensity: 10/10 Functional Outcome Measure Oswestry LBP: 27 (54%) - G Codes & Severity Modifier G Codes & Modifier: changing and maintaining body position current CK. changing and maintaining body position goal CI Source of G Code score: oswestry low back pain scale Observation - Observation Posture: Forward Head, Rounded Shoulders, Increased Thoracic Kyphosis, Decreased Lumbar Lordosis Gait - Gait Pattern General Gait Pattern Observation: No Deviations/Normal General Range of Motion: BUE WFL's with pain with shld flex on the R. 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 RUE shld flex 3+/5, elbow flex/ext 4+/5. BLE 5/5 - ROM Lumbar Flexion: Hand reach to patellae Sidebending to Left: Reach to Mid-thigh Sidebending to Right: Reach to Lateral Joint Line Lumbar Spine ROM Limitations: Soft Tissue Tightness, Muscle Weakness, Pain Comments: pt with increased hamstring tightness on the L. RLE is longer than LLE. pt L shld elevated higher than R shld. (x ray shows scoliosis) - Special Tests MARY CARMEN Test: Negative Left, Negative Right SLR Test: Negative Left, Negative Right Seated Dural Stretch Test: Negative Left, Negative Right Palpation Palpation Findings: Trigger Point Comments:: large trigger point noted to R medial scapula and distal to scapula on the R . Tightness noted in R upper trap and scapular muscles. Sensation - Sensation Right Upper Extremity: Intact/Normal Left Upper Extremity: Intact/Normal Right Lower Extremity: Intact/Normal Left Lower Extremity: Intact/Normal Balance - Sitting Balance Static Sitting Balance: Normal Dynamic Sitting Balance: Normal - Standing Balance Static Standing Balance: Normal Dynamic Standing Balance: Normal - Heat/Cryotherapy Treatment: Hot Pack Comments:: R thoracolumbar region Interventions - Exercise/Activities/Manual Therapy Exercises/Activities: pt performed thoracolumbar side bending with bolster L sidelying as well as with RUE overhead and shld add stretch, scapular retraction , corner stretch as well as L hamstring stretch. Manual Therapy: n/a HOME EXERCISE PROGRAM: pt given written HEP including: thoracolumbar side bending with bolster L sidelying, scapular retraction, corner stretch, L hamstring stretch - Charges Timed Code Treatment Minutes: 47 Total Treatment Time: 54 Procedures billed for this date of service:: eval med, hot pack EVALUATION COMPLEXITY LEVEL EVALUATION COMPLEXITY LEVEL: HISTORY: Medium (DM, HTN, CHF, back pain), EXAM OF BODY SYSTEMS: Medium (posture, scoliosis, pain, muscle weakness), CLINICAL PRESENTATION: Medium (evolving), CLINICAL DECISION MAKING: Medium Assessment Assessment: pt presents with evidence of scoliosis with R sided muscle tightness , trigger points and muscle guarding in thoracolumbar area as well as R scapula. pt with L hamstring tightness. 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 Goal to be met by: 11/30/17 Goal #3: pt with improved pain free ROM in thoracolumar region. Goal to be met by: 11/30/17 Plan - Treatment to be Provided Procedures: Therapeutic Exercises, Therapeutic Activity, Manual Therapy, Massage , Patient Education Modalities: Electrical Stimulation, Ultrasound/Phonophoresis, Class IV Laser, Cryotherapy, Hot Packs - Treatment Plan Frequency: 2 X week Duration: 4 weeks ORDER # VISITS AND/OR THROUGH DATE: 11/30/17 - Treatment Code (1) Mid back pain on right side Code(s): M54.9 - DORSALGIA, UNSPECIFIED (2) Thoracogenic scoliosis of thoracolumbar region Code(s): M41.35 - THORACOGENIC SCOLIOSIS, THORACOLUMBAR REGION (3) Muscle tightness Code(s): M62.89 - OTHER SPECIFIED DISORDERS OF MUSCLE
--- NOTE | 2017-11-03 10:11 | RS.CXNS ---
Date of scheduled appointment: 11/03/17 Type: Cancel Reason for Cancel/NS: Patient calls to say she is sick
--- NOTE | 2017-11-06 14:40 | RS.OPPTDN ---
Subjective Date of Note: 11/06/17 Visit #: 2 Date of Evaluation: 11/02/17 Payer Source: MEDICARE Treatment Diagnosis: mid back pain on R side, thoracogenic scoliosis of thoracolumbar region Current Subjective/complaints:: Patient says she has tried HEP. Reports she did have moderate pain yesterday to the upper and mid back, but not so much right now. *Precautions: n/a - Heat/Cryotherapy Treatment: Hot Pack (15 mins to mid to lower thoracic in supine) Interventions - Exercise/Activities/Manual Therapy Exercises/Activities: Patient receives passive L hamstring, piriformis, lower trunk rotation stretching x 4. She performs: QS, SLR, isometric hip abd/ flexion, bridging to the R x 10 reps. Sitting: Scap retraction with red tband , 2# wand for bilateral shoulder flexion at EOB x 10. Postural techniques and reviewed HEP. Total minutes of Exercise: 24 Manual Therapy: n/a HOME EXERCISE PROGRAM: pt given written HEP including: thoracolumbar side bending with bolster L sidelying, scapular retraction, corner stretch, L hamstring stretch - Charges Timed Code Treatment Minutes: 24 Total Treatment Time: 39 Procedures billed for this date of service:: hp, ex2 Assessment: Patient admits very little to no pain today, however she experiences intermittent moderate pain to the mid to lower thoracic region. She admits no difficulty with any ADLs or household tasks. She does demo the need for continued stretching assistedly and strengthening to the thoracic area with compliance for home and postural techniques. 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 Goal to be met by: 11/30/17 Goal #3: pt with improved pain free ROM in thoracolumar region. Goal to be met by: 11/30/17 Plan PLAN OF CARE EXPIRES ON:: 11/30/17 ORDER # VISITS AND/OR THROUGH DATE: 11/30/17 PLAN: Patient to continue for flexibility and strengthening.
--- NOTE | 2017-11-07 12:01 | RS.CXNS ---
Date of scheduled appointment: 11/07/17 Type: Cancel
--- NOTE | 2017-11-08 12:03 | RS.OPPTDN ---
Subjective Date of Note: 11/08/17 Visit #: 3 Date of Evaluation: 11/02/17 Payer Source: MEDICARE Treatment Diagnosis: mid back pain on R side, thoracogenic scoliosis of thoracolumbar region Current Subjective/complaints:: Patient states she had mild soreness to the R side of her back following previous treatment. She admits to performing HEP without difficulty. She is having muscle cramps to the both legs, but only while working on the opposite LE. She says she also had a lot of errand running yesterday, which could have contributed to elevated symptoms as well. *Precautions: n/a Pain Assessment - Pain Description Pain Location: mild R sided back/LE - Heat/Cryotherapy Treatment: Hot Pack (mid to upper back in supine x 15 mins) Interventions - Exercise/Activities/Manual Therapy Exercises/Activities: Patient receives passive L hamstring, piriformis, lower trunk rotation stretching x 4. She performs: QS, SLR, isometric hip abd/ flexion, bridging and to the R x 10 reps. Sitting: Scap retraction with green tband, 2# wand for bilateral shoulder flexion at wall with wall angels, postural techniques to stand erect, green tband bilateral shoulder ER x 10. Postural techniques and reviewed HEP. Manual Therapy: n/a HOME EXERCISE PROGRAM: pt given written HEP including: thoracolumbar side bending with bolster L sidelying, scapular retraction, corner stretch, L hamstring stretch - Charges Timed Code Treatment Minutes: 25 Total Treatment Time: 40 Procedures billed for this date of service:: hp, ex2 Assessment: Patient demo increased R HS tightness today and has difficulty richie much exercise supine due to intermittent hamstring cramping to both legs while opposite the other. Patient is compliant with HEP. 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 Goal to be met by: 11/30/17 Goal #3: pt with improved pain free ROM in thoracolumar region. Goal to be met by: 11/30/17 Plan PLAN OF CARE EXPIRES ON:: 11/30/17 ORDER # VISITS AND/OR THROUGH DATE: 11/30/17 PLAN: Progress BIW for mid to upper back, flexibility to LEs
--- NOTE | 2017-11-13 11:59 | RS.CXNS ---
Date of scheduled appointment: 11/13/17 Type: Cancel
--- NOTE | 2017-11-14 08:36 | RS.CXNS ---
Date of scheduled appointment: 11/14/17 Type: Cancel Reason for Cancel/NS: no reason given. Plan to discharge with HEP when she attends next visit due to inconsistent attendance.
--- NOTE | 2017-11-15 11:44 | RS.CXNS ---
Date of scheduled appointment: 11/15/17 Type: No Show Reason for Cancel/NS: Patient will be discharged and will explain to patient if she contacts us to continue. She has no showed/cancelled 5 times since 11/02/17 and has only attended 3 visits.
--- NOTE | 2017-11-22 13:27 | RS.QUICKDC ---
Discharge from PT Date of Discharge: 11/22/17 Number of Visits: 3 Reason for Discharge: Patient attended inconsistently. No call or contact to continue final visit. Patient seen for stretching to the upper and lower back and general trunk stability. See daily notes for specific treatment. Gcodes unchanged. Oswestry LBP: 27 (54%). - G Codes & Severity Modifier. G Codes & Modifier: changing and maintaining body position D/C: CK. changing and maintaining body position goal :CI. Source of G Code score: oswestry low back pain scale
== END 2017-11-25 23:59 ==
PROVIDERS: ATTEND Emergency Medicine
DX: M54.9 Dorsalgia, unspecified (principal); M41.35 Thoracogenic scoliosis, thoracolumbar region

== ENCOUNTER 2018-05-15 11:11 | Emergency (ER) | payer OTHER ==
[2018-05-15 11:28] VITALS: BP 104/57; TEMP 98.2; BMI 29.9
--- NOTE | 2018-05-15 11:34 | ED.PDOC ---
General ED Provider: Dr. JEFE FREEMAN Chief Complaint: Weakness Stated Complaint: Loose watery stools yesterday X4 with cramping. [place] poorly last evening and slept well, No fever but positive chills. This morning still feels very poorly, weak and sl nauseated. No further episodes diarrhea.Poor appetite Time Seen by Physician: 11:15 Mode of Arrival: Walk-In Information Source: Patient Exam Limitations: No limitations Primary Care Provider: [facility] Nursing and Triage Documentation Reviewed and Agree: Yes Does patient meet sepsis criteria?: No System Inflammatory Response Syndrome: Not Applicable Sepsis Protocol: For patient's 13 years and over: Temp is 96.8 and below OR 101 and greater Pulse >90 BPM Resp >20/minute Acutely Altered Mental Status Are patient's symptoms suggestive of a new infection, such as: -Pneumonia -Skin, Soft Tissue -Endocarditis -UTI -Bone, Joint Infection -Implantable Device -Acute Abdominal Infection -Wound Infection -Meningitis -Blood Stream Catheter Infection -Unknown GI Complaint Exam - Vomiting/Diarrhea Complaint/Exam Onset/Duration: yesterday Symptoms Are: Resolved Episodes of Diarrhea Over Last 24 Hours: 4 Initial Severity: Severe Current Severity: Moderate Character of Diarrhea: Reports: Watery Aggravating: Reports: None Alleviating: Reports: NPO Differential Diagnoses: Other (GI Viral Illness) Review of Systems - Review Of Systems Constitutional: Reports: No symptoms Eyes: Reports: No symptoms Ears, Nose, Mouth, Throat: Reports: No symptoms Respiratory: Reports: No symptoms Cardiac: Reports: No symptoms GI: Reports: No symptoms : Reports: No symptoms Musculoskeletal: Reports: No symptoms Skin: Reports: No symptoms Neurological: Reports: No symptoms Endocrine: Reports: No symptoms Hematologic/Lymphatic: Reports: No symptoms All Other Systems: Reviewed and Negative Past Medical History - Past Medical History Previously Healthy: No Endocrine: Reports: DM 2 Cardiovascular: Reports: CAD, Hypertension, CHF Respiratory: Reports: Pneumonia Hematological: Reports: None Gastrointestinal: Reports: None Genitourinary: Reports: None Neuro/Psych: Reports: None Musculoskeletal: Reports: None Cancer: Reports: None Last Menstrual Period: NA - Surgical History General Surgical History: Reports: None, Hysterectomy (partial hystrectomy ), Cholecystectomy. Denies: CABG (hearth cath ) - Family History Family History: Reports: None - Social History Smoking Status: Former smoker Hx Substance Use: No Alcohol Screening: None Physical Exam - Physical Exam Appearance: Well-appearing Ill-appearing: None Pain Distress: None Eyes: EVGENY, EOMI, Conjunctiva clear ENT: Ears normal, Nose normal, Oropharynx normal Neck: Supple Respiratory: Airway patent, Breath sounds clear, Breath sounds equal, Respirations nonlabored Cardiovascular: RRR, Pulses normal, No rub, No murmur GI/: Soft, Nontender, No masses, Bowel sounds normal, No Organomegaly Musculoskeletal: Normal strength, ROM intact, No edema, No calf tenderness Skin: Warm, Dry, Normal color Neurological: Sensation intact, Motor intact, Reflexes intact, Cranial nerves intact, Alert, Oriented Psychiatric: Affect appropriate, Mood appropriate Critical Care Note - Critical Care Note Total Time (mins): 0 Course - Course Hematology/Chemistry: 05/15/18 11:45 05/15/18 11:45 Orders, Labs, Meds: Lab Review 05/15/18 05/15/18 05/15/18 11:45 11:45 11:45 WBC 6.50 RBC 5.04 Hgb 13.9 Hct 43.9 MCV 87.1 MCH 27.6 MCHC 31.7 L RDW Coeff of Robbie 13.3 Plt Count 237 Immature Gran % (Auto) 0.3 Neut % (Auto) 63.1 Lymph % (Auto) 26.9 [place] % (Auto) 7.2 Eos % (Auto) 2.0 Baso % (Auto) 0.5 Immature Gran # (Auto) 0.0 Neut # (Auto) 4.1 Lymph # (Auto) 1.8 [place] # (Auto) 0.5 Eos # (Auto) 0.1 Baso # (Auto) 0.0 Sodium 137.0 Potassium 3.86 Chloride 102.5 Carbon Dioxide 27.9 Anion Gap 10.46 BUN 14.8 Creatinine 0.84 Estimated GFR (MDRD) 84.00 BUN/Creatinine Ratio 17.61 Glucose 105.8 Calcium 9.12 Total Bilirubin 1.15 AST 19.7 ALT 17.2 Alkaline Phosphatase 76.1 Total Protein 7.52 Albumin 4.27 Globulin 3.25 Albumin/Globulin Ratio 1.31 Lipase 72.3 Urine Color Urine Clarity Urine pH Ur Specific [place] Urine Protein Urine Glucose (UA) Urine Ketones Urine Blood Urine Nitrite Urine Bilirubin Urine Urobilinogen Ur Leukocyte Esterase Influ A Molecular Assay Negative by naat Influ B Molecular Assay Negative by naat 05/15/18 11:45 WBC RBC Hgb Hct MCV MCH MCHC RDW Coeff of Robbie Plt Count Immature Gran % (Auto) Neut % (Auto) Lymph % (Auto) [place] % (Auto) Eos % (Auto) Baso % (Auto) Immature Gran # (Auto) Neut # (Auto) Lymph # (Auto) [place] # (Auto) Eos # (Auto) Baso # (Auto) Sodium Potassium Chloride Carbon Dioxide Anion Gap BUN Creatinine Estimated GFR (MDRD) BUN/Creatinine Ratio Glucose Calcium Total Bilirubin AST ALT Alkaline Phosphatase Total Protein Albumin Globulin Albumin/Globulin Ratio Lipase Urine Color Yellow Urine Clarity Clear Urine pH 5.0 Ur Specific [place] 1.015 Urine Protein Negative Urine Glucose (UA) 2+ Urine Ketones Negative Urine Blood Negative Urine Nitrite Negative Urine Bilirubin Negative Urine Urobilinogen 0.2 Ur Leukocyte Esterase Negative Influ A Molecular Assay Influ B Molecular Assay Orders Category Date Time Status CBC W/ AUTO DIFF Stat LAB 05/15/18 11:45 Completed CMP [COMPREHENSIVE METABOLIC PANEL] Stat LAB 05/15/18 11:45 Completed FLU A & B MOLECULAR [FLU A/B MOLECULAR] Stat LAB 05/15/18 11:45 Completed LIPASE Stat LAB 05/15/18 11:45 Completed UA [URINALYSIS C & S IF INDICATED] Stat LAB 05/15/18 11:45 Completed Vital Signs: Temp Pulse Resp BP Pulse Ox 05/15/18 11:18 98.2 F 75 16 104/57 L 97 Departure - Departure Time of Disposition: 13:15 Disposition: HOME SELF-CARE Discharge Problem: Gastroenteritis and colitis, viral, Weakness Instructions: Gastroenteritis (ED), Weakness (ED) Condition: Good Pt referred to PMD for follow-up: Yes IPMP verified?: No Additional Instructions: Advance diet as tolerated Stay well hydrated See PCP as needed Allergies/Adverse Reactions: Allergies codeine Adverse Reaction (Verified 05/15/18 11:17) Iodinated Contrast- Oral and IV Dye [Iodinated Contrast Media - IV Dye] Adverse Reaction (Verified 05/15/18 11:17) levofloxacin [From Levaquin] Adverse Reaction (Verified 05/15/18 11:17) Home Medications: Ambulatory Orders Aspirin [Aspirin EC] 81 mg PO DAILYWM 03/17/15 Furosemide [Lasix Tab] 40 mg PO DAILY 03/17/15 Glipizide [Glucotrol] 10 mg PO DAILY 03/17/15 Insulin Glargine,Hum.rec.anlog [Lantus] 52 unit SUBCUT BEDTIME 03/17/15 Metformin HCl [Fortamet] 500 mg PO BID 03/17/15 Quinapril HCl 40 mg PO DAILY 03/17/15 Carvedilol [Coreg] 3.125 mg PO BID 05/27/16 Multivitamin/Iron/Folic Acid [Centrum Complete Multivit Tab] 1 tab PO DAILY [place]-3 Fatty Acids/Fish Oil [Fish Oil 1,000 mg Capsule] 1 cap PO DAILY Potassium Bicarbonate/Cit AC [Potassium 25 Meq Tablet Eff] 25 meq PO DAILY 01/17 Isosorbide Mononitrate [Isosorbide Mononitrate ER] 30 mg PO DAILY 09/08/17 Ranitidine HCl 150 mg PO DAILY 09/08/17 Ca/D3/Mag Ox/Zinc/Medical Sales Specialist/Amaury/Bor [Calcium 600+D3 Plus Caplet] 1 each PO DAILY Disposition Discussed With: Patient
== END 2018-05-15 13:35 | disposition home or self-care (01) ==
LOC: ED 11:11
DX: A08.4 Viral intestinal infection, unspecified (principal); R53.1 Weakness; E11.9 Type 2 diabetes mellitus without complications; I25.10 Atherosclerotic heart disease of native coronary artery without angina pectoris; I10 Essential (primary) hypertension; Z79.899 Other long term (current) drug therapy
CPT/HCPCS: 36415; 80053; 81001; 83690; 85025; 87502; 99283

== ENCOUNTER 2018-07-17 13:06 | Emergency (ER) | payer OTHER ==
[2018-07-17 13:09] VITALS: BP 138/83; TEMP 98; BMI 29.4
[2018-07-17] MEDS ORDERED: TORADOL IM STA (14:46)
[2018-07-17] MEDS ORDERED: NORFLEX PO STA (14:47)
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
--- NOTE | 2018-07-17 15:08 | DI ---
EXAM: CHEST FRONTAL AND LATERAL VIEWS HISTORY: Pain, muscle spasm, history of injury. COMPARISON: 09/16/2017 FINDINGS: Heart size and mediastinal contour remain within normal limits. No acute infiltrates. Normal vascularity with no pleural fluid or pneumothorax. The bony thorax has no acute finding. IMPRESSION: No acute process.
--- NOTE | 2018-07-17 15:09 | DI ---
EXAM: THORACIC SPINE HISTORY: Muscle spasm, history of injury, pain FINDINGS: Thoracic spine three-view. Mild scoliosis convex to the left. No fracture or significant loss of vertebral body height. There is no spondylolisthesis. Subtle degenerative disc disease IMPRESSION: 1. No fracture or subluxation.
== END 2018-07-17 16:47 | disposition home or self-care (01) ==
LOC: ED 13:06
DX: S29.012A Strain of muscle and tendon of back wall of thorax, initial encounter (principal); X50.1XXA Overexertion from prolonged static or awkward postures, initial encounter; E11.9 Type 2 diabetes mellitus without complications; I25.10 Atherosclerotic heart disease of native coronary artery without angina pectoris; I10 Essential (primary) hypertension; Z79.899 Other long term (current) drug therapy
CPT/HCPCS: 36415; 80053; 84484; 85025; 85651; 93005; 93010; 96372; 99283

== ENCOUNTER 2018-08-02 09:43 | Outpatient (CLI) ==
--- NOTE | 2018-08-03 09:20 | MAMMO ---
EXAM: Digital screening mammogram with 3-D tomosynthesis and CAD HISTORY: Screening mammogram COMPARISON: Mammogram 07/24/2017 FINDINGS: Bilateral CC and MLO views of the breasts were performed digitally and demonstrate scatter ed fibroglandular breast density. There is no abnormal nodule or calcification. There is no signifi cant interval change. IMPRESSION: No new or suspicious calcification or nodule RECOMMENDATION: Annual screening mammogram BIRADS category 1: Normal
== END 2018-08-02 09:44 | disposition home or self-care (01) ==
LOC: RAD 09:43
PROVIDERS: ATTEND Physician Assistant
DX: Z12.31 Encounter for screening mammogram for malignant neoplasm of breast (principal)

== ENCOUNTER 2018-10-07 19:11 | Emergency (ER) | payer OTHER ==
[2018-10-07 19:17] VITALS: BP 125/76; TEMP 98.5; BMI 28.7
--- NOTE | 2018-10-07 19:49 | ED.PDOC ---
General ED Provider: Dr. YAA SINGH Chief Complaint: Diarrhea Stated Complaint: Patient is a 62 year old female who states that she has had 8 bouts of diarrhea since yesterday. Has taken Imodium and is pushing fluids. Today felt like there was some swelling and mild itchyness on the rectum. Time Seen by Physician: 19:30 Mode of Arrival: Walk-In Information Source: Patient Primary Care Provider: TONY OKEEFE Nursing and Triage Documentation Reviewed and Agree: Yes Does patient meet sepsis criteria?: No System Inflammatory Response Syndrome: Not Applicable Sepsis Protocol: For patient's 13 years and over: Temp is 96.8 and below OR 101 and greater Pulse >90 BPM Resp >20/minute Acutely Altered Mental Status Are patient's symptoms suggestive of a new infection, such as: -Pneumonia -Skin, Soft Tissue -Endocarditis -UTI -Bone, Joint Infection -Implantable Device -Acute Abdominal Infection -Wound Infection -Meningitis -Blood Stream Catheter Infection -Unknown GI Complaint Exam - Rectal Complaint/Exam Patient Complains of: Reports: Rectal pain Onset/Duration: 1 day Symptoms Are: Still present Timing: Constant Initial Severity: Mild Current Severity: Moderate Location: Reports: Rectal Character: Reports: Dull, Itching Aggravating: Reports: Bowel movement Associated Signs and Symptoms: Reports: Blood without stool Related History: Reports: Similar episode, Hemorrhoids (in remote past ) Related Surgical History: Reports: None Rectal Exam: Present: External hemorrhoids, Tenderness Differential Diagnoses: Hemorrhoids Review of Systems - Review Of Systems Constitutional: Reports: No symptoms Eyes: Reports: No symptoms Ears, Nose, Mouth, Throat: Reports: No symptoms Respiratory: Reports: No symptoms Cardiac: Reports: No symptoms GI: Reports: Diarrhea, Other (rectal discomfort) : Reports: No symptoms Musculoskeletal: Reports: No symptoms Skin: Reports: No symptoms Neurological: Reports: No symptoms Endocrine: Reports: No symptoms Hematologic/Lymphatic: Reports: No symptoms All Other Systems: Reviewed and Negative Past Medical History - Past Medical History Previously Healthy: No Endocrine: Reports: DM 2 Cardiovascular: Reports: CAD, Hypertension, CHF Respiratory: Reports: Pneumonia Hematological: Reports: None Gastrointestinal: Reports: None Genitourinary: Reports: None Neuro/Psych: Reports: None Musculoskeletal: Reports: None Cancer: Reports: None Last Menstrual Period: partial 2000 - Surgical History General Surgical History: Reports: None, Hysterectomy (partial hystrectomy ), Cholecystectomy. Denies: CABG (hearth cath ) - Family History Family History: Reports: None - Social History Smoking Status: Former smoker Hx Substance Use: No Alcohol Screening: None - Immunizations Tetanus Shot up to Date: No (unsure) Physical Exam - Physical Exam Appearance: Well-appearing, No pain distress, Well-nourished Eyes: EOMI, Conjunctiva clear ENT: Nose normal, Oropharynx normal Neck: Supple Respiratory: Airway patent, Breath sounds clear, Breath sounds equal, Respirations nonlabored Cardiovascular: RRR, Pulses normal, No rub, No murmur GI/: Soft, Nontender, No masses, Bowel sounds normal, No Organomegaly Musculoskeletal: Normal strength, ROM intact, No edema, No calf tenderness Skin: Warm, Dry, Normal color Neurological: Sensation intact, Motor intact, Reflexes intact, Cranial nerves intact, Alert, Oriented Psychiatric: Affect appropriate, Mood appropriate Critical Care Note - Critical Care Note Total Time (mins): 0 Course - Course Orders, Labs, Meds: Lab Review 10/07/18 10/07/18 19:40 19:40 Urine Color Light Urine Clarity Clear Urine pH 5.0 Ur Specific [place] 1.010 Urine Protein Negative Urine Glucose (UA) 2+ Urine Ketones Negative Urine Blood Negative Urine Nitrite Negative Urine Bilirubin Negative Urine Urobilinogen 0.2 Ur Leukocyte Esterase Negative Stl Occult Blood (IFOB) Positive Stool Occult Blood #2 No specimen received Stool Occult Blood #3 No specimen received Orders Category Date Time Status OCCULT BLOOD, STOOL Stat LAB 10/07/18 19:40 Completed URINALYSIS C & S IF INDICATED Stat LAB 10/07/18 19:40 Completed Vital Signs: Temp Pulse Resp BP Pulse Ox 10/07/18 19:11 98.5 F 87 18 125/76 96 Departure - Departure Time of Disposition: 19:47 Disposition: HOME SELF-CARE Discharge Problem: Acute hemorrhoid Instructions: Hemorrhoids (ED) Condition: Stable Pt referred to PMD for follow-up: Yes IPMP verified?: No Additional Instructions: Follow up with PCP in 3 days Use Preparation H every 4 hours Allergies/Adverse Reactions: Allergies codeine Adverse Reaction (Verified 10/07/18 19:16) Iodinated Contrast- Oral and IV Dye [Iodinated Contrast Media - IV Dye] Adverse Reaction (Verified 10/07/18 19:16) levofloxacin [From Levaquin] Adverse Reaction (Verified 10/07/18 19:16) Home Medications: Ambulatory Orders Aspirin [Aspirin EC] 81 mg PO DAILYWM 03/17/15 Furosemide [Lasix Tab] 40 mg PO DAILY 03/17/15 Quinapril HCl 40 mg PO DAILY 03/17/15 Carvedilol [Coreg] 3.125 mg PO BID 05/27/16 [place]-3 Fatty Acids/Fish Oil [Fish Oil 1,000 mg Capsule] 1 cap PO DAILY Potassium Bicarbonate/Cit AC [Potassium 25 Meq Tablet Eff] 25 meq PO DAILY 01/17 Isosorbide Mononitrate [Isosorbide Mononitrate ER] 30 mg PO DAILY 09/08/17 Ranitidine HCl 150 mg PO DAILY 09/08/17 Ca/D3/Mag Ox/Zinc/Health And Fitness Instructor/Amaury/Bor [Calcium 600+D3 Plus Caplet] 1 each PO DAILY Dulaglutide [Trulicity] 1.5 mg SQ WEEKLY 07/17/18 Empaglifozin [Jardiance] 10 mg PO DAILY 07/17/18 Insulin Glargine,Hum.rec.anlog [Lantus] 35 units SQ BEDTIME vial 10/03/18 Disposition Discussed With: Patient
== END 2018-10-07 20:00 | disposition home or self-care (01) ==
LOC: ED 19:11
DX: K64.9 Unspecified hemorrhoids (principal); R19.7 Diarrhea, unspecified; Z79.899 Other long term (current) drug therapy
CPT/HCPCS: 81001; 82272; 99282

== ENCOUNTER 2020-01-14 03:01 | Inpatient (IN) ==
[2020-01-14] MEDS ORDERED: LASIX IVP STA (03:36)
--- NOTE | 2020-01-14 03:58 | ED.PDOC ---
General ED Provider: Dr. ROWDY ROGERS MD Chief Complaint: Shortness of Air Stated Complaint: shortness of breath Time Seen by Physician: 03:42 Mode of Arrival: Walk-In Information Source: Patient Primary Care Provider: INGRIS ARECHIGA Nursing and Triage Documentation Reviewed and Agree: Yes Does patient meet sepsis criteria?: No System Inflammatory Response Syndrome: Resp >20/Minute and Not Applicable Sepsis Protocol: For patient's 13 years and over: Temp is 96.8 and below OR 101 and greater Pulse >90 BPM Resp >20/minute Acutely Altered Mental Status Are patient's symptoms suggestive of a new infection, such as: -Pneumonia -Skin, Soft Tissue -Endocarditis -UTI -Bone, Joint Infection -Implantable Device -Acute Abdominal Infection -Wound Infection -Meningitis -Blood Stream Catheter Infection -Unknown Respiratory Complaint Exam Shortness of Air Complaint/Exam Onset/Duration: ~0030 Symptoms Are: Worse Timing: Constant Initial Severity: Mild Current Severity: Moderate Character: Reports Dyspnea at rest Aggravating: Reports Movement and Recumbent position Alleviating: Reports Oxygen and Upright position Associated Signs and Symptoms: Reports Cough, Rapid breathing and Labored breathing Related History: Reports Similar episode History of Healthcare-Acquired Pneumonia: No Pulmonary Embolism Risk Factors: Reports None Cardiac Risk Factors: Reports Hypertension and CHF Pseudomonas Risk Factors: Reports Chronic Lung Disease Tuberculosis Risk Factors: Reports None Home Oxygen Use: No Respiratory Distress: Moderate Stridor Present: No Tracheal Deviation: No Subcutaneous Emphysema: No Accessory Muscle Use: Yes Retractions: Intercostal and Diaphragmatic Diminished Breath Sounds: Yes Prolonged Expiratory Phase: Yes Unable to Speak Full Sentences: Yes Fatigue: No Leg Swelling: No Laurence's Sign Present: No Grunting Respirations: No Differential Diagnoses: CHF, COPD Exacerbation, [place], Unstable Angina, Pneumonia, Pneumothorax, SARS, Tuberculosis, Bronchitis and URI Review of Systems Review Of Systems Constitutional: Reports No symptoms Respiratory: Reports Cough and Short of air All Other Systems: Reviewed and Negative [facility] Medical History Bronchitis Congestive heart failure Diabetes mellitus Hypertension Pleurisy Pneumonia Family History Grandfather/Grandmother Diabetes Social History Smoking and tobacco status: Former smoker History of recent travel: No Female Reproductive History Menstrual Hx Hysterectomy: Yes Hx Tubal Ligation: No Physical Exam Physical Exam Appearance: Reports Well-nourished Ill-appearing: Moderate Pain Distress: None Eyes: Reports EVGENY, EOMI and Conjunctiva clear ENT: Reports Nose normal Respiratory: Reports Airway patent, Breath sounds clear, Breath sounds equal and Breath sounds diminished Cardiovascular: Reports RRR GI/: Reports Soft, Nontender and Bowel sounds normal Musculoskeletal: Reports Normal strength and ROM intact Skin: Reports Warm, Dry and Normal color Neurological: Reports Sensation intact, Motor intact, Alert and Oriented Psychiatric: Reports Affect appropriate and Anxious Interpretation EKG Interpretation Time of EKG #1: 04:27 Rate: Normal (89) Rhythm: Sinus Ectopy: None [place]: [place] ST Segment: Normal Interpretation: split anterolateral leads Critical Care Note Critical Care Note Total Time (mins): 0 Course Course Hematology/Chemistry: 01/14/20 04:10 01/14/20 04:10 Orders, Labs, Meds: Lab Review 01/14/20 01/14/20 01/14/20 04:10 04:10 04:15 WBC 4.33 L RBC 5.33 Hgb 15.3 Hct 47.7 H MCV 89.5 MCH 28.7 MCHC 32.1 RDW Coeff of Robbie 13.9 Plt Count 234 Immature Gran % (Auto) 0.2 Neut % (Auto) 49.9 Lymph % (Auto) 38.8 [place] % (Auto) 4.8 Eos % (Auto) 5.1 Baso % (Auto) 1.2 Neut # (Auto) 2.2 Lymph # (Auto) 1.7 [place] # (Auto) 0.2 L Eos # (Auto) 0.2 Baso # (Auto) 0.1 Immature Gran # (Auto) 0.0 Puncture Site Lrad O2 Saturation 89.0 L ABG pH 7.465 H ABG pCO2 32.0 L ABG pO2 52.0 L* ABG HCO3 23 ABG Total CO2 24 ABG Base Excess -1 [place] Test + O2 Delivery Device Venturi mask Oxygen Liter Flow 8.00 FiO2 % 40.0 Sodium 139.9 Potassium 3.85 Chloride 106.7 Carbon Dioxide 23.0 Anion Gap 14.05 BUN 21.9 H Creatinine 0.67 Estimated GFR (MDRD) 108.00 BUN/Creatinine Ratio 32.68 Glucose 192.0 H Calcium 10.42 H Magnesium 2.21 Total Bilirubin 0.71 AST 37.7 H ALT 30.7 Alkaline Phosphatase 80.3 Total Creatine Kinase 339.8 H CK-MB (CK-2) 3.470 H CK-MB (CK-2) % 1.0200 Troponin I 0.047 NT-Pro-B Natriuret Pep 623.000 H Total Protein 8.24 H Albumin 4.53 Globulin 3.71 Albumin/Globulin Ratio 1.22 Orders Category Date Time Status EKG-(ED ONLY) Stat CARDIO 01/14/20 03:36 Completed ED IV/MEDIPORT/POWERPORT .ONCE EMERGENCY 01/14/20 03:36 Active CBC W/ AUTO DIFF Stat LAB 01/14/20 04:10 Completed COMPREHENSIVE METABOLIC PANEL Stat LAB 01/14/20 04:10 Completed CREATINE KINASE Stat LAB 01/14/20 04:10 Completed MAGNESIUM Stat LAB 01/14/20 04:10 Completed NT-PROBNP Stat LAB 01/14/20 04:10 Completed TROPONIN I Stat LAB 01/14/20 04:10 Completed 0.9 % Sodium Chloride [Saline Flush] MEDS 01/14/20 03:36 Active 1 syr IVF PRN PRN Ceftriaxone/D5w 1 gm Premix [Rocephin 1 gm/50 ml D5w] MEDS 01/14/20 05:00 Active 1 gm in 50 ml IV DAILY Furosemide [Lasix] MEDS 01/14/20 03:36 Discontinued 40 mg IVP ONCE STA CHEST, 1V AP ONLY Stat RADS 01/14/20 03:36 Completed Medications Generic Name Dose Route Start Last Admin Trade Name Freq PRN Reason Stop Dose Admin Acetaminophen 650 mg 01/14/20 05:05 Tylenol PO Q4H PRN Mild Pain Furosemide 40 mg 01/14/20 17:00 Lasix IVP BIDAC CARMEN CEFTRIAXONE/D5W 1 GM PREMIX 1 gm in 50 mls @ 75 mls/hr 01/14/20 05:00 01/14/20 05:40 Rocephin 1 Gm/50 Ml D5w IV 01/17/20 04:59 75 mls/hr DAILY CARMEN Administration Azithromycin 500 mg/ Sodium 250 mls @ 125 mls/hr 01/14/20 09:00 Chloride IV 01/17/20 08:59 DAILY CARMEN Sodium Chloride 1 syr 01/14/20 03:36 01/14/20 03:52 Saline Flush IVF 1 syr PRN PRN Administration To flush IV Sodium Chloride 1 syr 01/14/20 05:15 01/14/20 05:40 Saline Flush IVF 1 syr Q8HR CARMEN Administration Discontinued Medications Generic Name Dose Route Start Last Admin Trade Name Freq PRN Reason Stop Dose Admin Furosemide 40 mg 01/14/20 03:36 01/14/20 03:52 Lasix IVP 01/14/20 03:37 40 mg ONCE STA Administration Vital Signs: Temp Pulse Resp BP Pulse Ox 01/14/20 03:02 97.2 F L 90 28 H 158/93 H 88 L Patient had problems keeping her sats up, so she was placed on VapoTherm. She responded favorably. Labs posted, consistent with CHF exacerbation. CXR showed CHF and probable pneumonia. Patient wants to stay here. She was admitted to the Hospitalist service. She was in good condition when transported from the ED to the floor. Discharge Plan Discharge Patient Disposition: ADMITTED INPATIENT Discharge Problem: [id number] Acute exacerbation of congestive heart failure Qualifiers: Heart failure type: unspecified Qualified Code(s): I50.9 - Heart failure, unspecified ED Provider: ROWDY ROGERS Condition: Stable Discharge Date/Time: 01/14/20 05:26
[2020-01-14 04:16] LABS: BASOPHILS # (AUTO) 0.1 K/uL (0-0.2); BASOPHILS % (AUTO) 1.2 % (0.0-3.0); EOSINOPHILS # (AUTO) 0.2 K/ul (0.0-0.7); EOSINOPHILS % (AUTO) 5.1 % (0.0-7.0); HEMATOCRIT 47.7 % (37.0-47.0); HEMOGLOBIN 15.3 g/dl (12.0-16.0); IMMATURE GRANULOCYTE % (AUTO) 0.2 % (0.0-5.0); LYMPHOCYTES # (AUTO) 1.7 K/uL (0.60-3.4); LYMPHOCYTES % (AUTO) 38.8 (10.0-50.0); MEAN CORPUSCULAR HEMOGLOBIN 28.7 pg (27.0-31.0); MEAN CORPUSCULAR HGB CONC 32.1 (31.8-35.4); MEAN CORPUSCULAR VOLUME 89.5 fl (81.0-99.0); MONOCYTES # (AUTO) 0.2 K/uL (0.4-2.0); MONOCYTES % (AUTO) 4.8 (0-10); NEUTROPHILS # (AUTO) 2.2 K/ul (2.0-6.9); NEUTROPHILS % (AUTO) 49.9 % (42.2-75.2); PLATELET COUNT 234 10^3/uL (140-440); RDW COEFFICIENT OF VARIATION 13.9 % (11.6-14.8); RED BLOOD COUNT 5.33 10^6/ul (4.20-5.40); WHITE BLOOD COUNT 4.33 K/ul (4.6-10.2)
[2020-01-14 04:28] LABS: ALANINE AMINOTRANSFERASE 30.7 U/L (0-35); ALBUMIN 4.53 g/dL (3.5-5.0); ALKALINE PHOSPHATASE 80.3 U/L (53-141); ASPARTATE AMINO TRANSFERASE 37.7 U/L (14-36); BILIRUBIN,TOTAL 0.71 mg/dL (0.2-1.3); BLOOD UREA NITROGEN 21.9 mg/dL (7-17); CALCIUM 10.42 mg/dL (8.4-10.2); CHLORIDE 106.7 mmol/L (98-107); CREATINE KINASE 339.8 U/L (30-135); CREATININE 0.67 mg/dL (0.60-1.30); MAGNESIUM 2.21 mg/dL (1.6-2.3); POTASSIUM 3.85 mmol/L (3.5-5.1); SODIUM 139.9 mmol/L (134.5-145); TOTAL PROTEIN 8.24 g/dL (6.3-8.2)
--- NOTE | 2020-01-14 04:29 | DI ---
Exam: Chest one-view History: Shortness of breath FINDINGS: Normal cardiomediastinal contours. Lung volumes are diminished. Pulmonary vasculature is prominent. Focal infiltrate and consolidation in the upper segments of the left lower lobe. No acu te chest wall abnormality. Impression: Left-sided pneumonia suspected Central vascular prominence accentuated by radiographic technique
[2020-01-14 04:39] LABS: TROPONIN I 0.047 ng/ml (0.0000-0.120)
[2020-01-14 04:43] LABS: CREATINE KINASE MB 3.47 ng/ml (0.0-2.38)
[2020-01-14] MEDS ORDERED: TYLENOL PO PRN (05:05)
[2020-01-14] MEDS: ROCEPHIN 1 GM/50 ML D5W 1 GM/50 ML BAG IV SCH ×2 (05:40→09:00)
[2020-01-14 05:47] VITALS: BMI 30.2
[2020-01-14 05:55] LABS: ABG PH 7.465 (7.35-7.45)
[2020-01-14 05:56] LABS: ABG BASE EXCESS -1 (-2.0-2.0); ABG HCO3 23 (22.0-26.0); ABG TCO2 24 (22.0-28.0)
[2020-01-14 07:36] LABS: ABG BASE EXCESS -1 (-2.0-2.0); ABG HCO3 23.5 (22.0-26.0); ABG PCO2 34.9 mmHg (35-45); ABG PH 7.436 (7.35-7.45); ABG TCO2 25 (22.0-28.0)
[2020-01-14] MEDS: ZITHROMAX 500 MG in SODIUM CHLORIDE 250 ML IV SCH (08:29)
[2020-01-14] MEDS ORDERED: [UNRECOGNIZED DRUG - OTHER] PO SCH (09:30)
[2020-01-14] MEDS ORDERED: OMEGA PO SCH (09:30)
[2020-01-14] MEDS ORDERED: FLONASE NAS PRN (09:30)
[2020-01-14] MEDS ORDERED: LASIX TAB PO SCH (10:00)
--- NOTE | 2020-01-14 10:04 | PCM ---
Chief Complaint Chief Complaint: Shortness of Breath History of Present Illness History of Present Illness: 64 y/o black Female presents to the ER earlier this date complaining or progressive shortness or breath awakening her from sleep.States normally do not h have these sympotoms. No recent Echo Shortness of Air Onset/Duration: ~0030 Symptoms have worsened and are constant Initial Severity: Mild-Current Severity: Moderate Character: Reports Dyspnea at rest Aggravating factors- Movement and Recumbent position Alleviating: Reports Oxygen and Upright position Associated Signs and Symptoms: Reports Cough, Rapid breathing and Labored breathing Related History: Reports Similar episode History of Healthcare-Acquired Pneumonia: No Pulmonary Embolism Risk Factors: Reports None Cardiac Risk Factors: Reports Hypertension and CHF Pseudomonas Risk Factors: Reports Chronic Lung Disease Tuberculosis Risk Factors: Reports None Home Oxygen Use: No Respiratory Distress: Moderate Stridor Present: No Tracheal Deviation: No Subcutaneous Emphysema: No Accessory Muscle Use: Yes Retractions: Intercostal and Diaphragmatic Diminished Breath Sounds: Yes Prolonged Expiratory Phase: Yes Unable to Speak Full Sentences: Yes Fatigue: No Leg Swelling: No Laurence's Sign Present: No Grunting Respirations: No Impressions : CHF, Unstable Angina COPD Exacerbation, [place], , Pneumonia, SARS, Tuberculosis, Bronchitis and URI Review of Systems Constitutional: Reports Weakness and Fatigue Eyes: Denies No symptoms, Blurred vision, Double-vision, Discharge, Itching, Pain, Redness, Photophobia and Other Ears: Denies No symptoms, Pain, Bleeding, Drainage, Ringing, Hearing loss and Other Nose: Denies No symptoms, Bleeding, Congestion, Discharge and Other Throat: Denies No symptoms, Pain, Swelling, Voice change and Other Mouth: Denies No symptoms, Bleeding, Pain, Swelling and Other Respiratory: Reports Cough, Shortness of air and Wheeze; Denies Pain with breathing Cardiovascular: Reports Chest pain, PND and Orthopnea (2 pillow); Denies Diaphoresis, Palpitations, Syncope and Other Gastrointestinal: Denies No symptoms, Abdominal pain, Nausea, Vomiting, Diarrhea, Melena, Hematemesis, Hematochezia, Dysphagia, Constipation and Other Genitourinary: Denies No symptoms, dysuria, hematuria, frequency, incontinence, flank pain, vaginal discharge, abnormal bleeding, pelvic pain and other Neurological: Denies No symptoms, Headache, Dizziness, Seizure, Numbness, Weakness, Speech difficulty, Problems with walking, Tremor, Fainting and Other Musculoskeletal: Denies No symptoms, Pain, Swelling in joints and Other Skin: Denies No symptoms, Rash, Pruritus, Lacerations, Wounds, Bruising and Other Immunology: Denies No symptoms, Hives, Itching, Frequent infections, Difficulty healing and Other Hematology: Denies No symptoms, Easy bruising, Easy bleeding, Swollen glands and Other Endocrine: Denies No symptoms, Weight changes, Cold intolerance, Heat intolerance, Excessive thirst, Excessive hunger, Polyuria and Other Psychiatric: Denies No symptoms, Depression, Anxiety, Sleeplessness, Hopelessness, Suicidal, Hallucinations and Other Habits: Denies Tobacco use, Substance use, Alcohol use and Other Allergies Allergies Allergy/AdvReac Type Severity Reaction Status Date / Time codeine AdvReac Nausea Verified 01/14/20 03:08 Iodinated Contrast Media AdvReac Itching Verified 01/14/20 03:08 [Iodinated Contrast Media - IV Dye] levofloxacin [From Levaquin] AdvReac Nausea Verified 01/14/20 03:08 [facility] Medical History Bronchitis Congestive heart failure Diabetes mellitus Hypertension Pleurisy Pneumonia Surgical History Cataract extraction and insertion of intraocular lens History of dental surgery History of heart surgery History of surgery on integumentary structure History of tubal ligation Status post cholecystectomy Status post hysterectomy Family History Grandfather/Grandmother Diabetes Social History Smoking and tobacco status: Former smoker History of recent travel: No Medications Medications: Medications Generic Name Dose Route Start Last Admin Trade Name Freq PRN Reason Stop Dose Admin Acetaminophen 650 mg 01/14/20 05:05 Tylenol PO Q4H PRN Mild Pain Aspirin 81 mg 01/14/20 10:00 Aspirin Ec PO DAILYWM CARMEN Carvedilol 3.125 mg 01/14/20 22:00 Coreg PO 0800,2200 CARMEN Empagliflozin 10 mg 01/15/20 09:00 Jardiance PO DAILY CARMEN Fluticasone Propionate 2 spray 01/14/20 09:30 Flonase FRANCISCO DAILY PRN Sinus congestion Furosemide 40 mg 01/14/20 17:00 Lasix IVP BIDAC CARMEN Furosemide 40 mg 01/14/20 10:00 Lasix Tab PO DAILY CARMEN CEFTRIAXONE/D5W 1 GM PREMIX 1 gm in 50 mls @ 75 mls/hr 01/14/20 05:00 01/14/20 09:00 Rocephin 1 Gm/50 Ml D5w IV 01/17/20 04:59 Not Given DAILY CARMEN Azithromycin 500 mg/ Sodium 250 mls @ 125 mls/hr 01/14/20 09:00 01/14/20 08:29 Chloride IV 01/17/20 08:59 125 mls/hr DAILY CARMEN Administration Insulin Glargine unit 01/14/20 21:00 Lantus SUBCUT BEDTIME CARMEN Isosorbide Mononitrate 30 mg 01/14/20 10:00 Imdur PO DAILY CARMEN Multivitamins 1 tab 01/14/20 10:00 Multivitamin Tablet PO DAILY CARMEN Non-Formulary Medication 1 cap 01/14/20 09:30 Vandemere-3 Fatty Acids-Fish Oil [Fish Oil] PO DAILY CARMEN Non-Formulary Medication 1 each 01/14/20 09:45 Ca-D3-Mag Vp-Ajct-Awb-Lay-Bor [Calcium 600-D3 Plus (Mag-Zinc)] PO DAILY CARMEN Non-Formulary Medication 1.5 mg 01/21/20 09:00 Dulaglutide [Trulicity] SQ WEEKLY CARMEN Non-Formulary Medication 1 tab 01/15/20 09:00 Vit A,C And W-Qnmwyw-Dtxroemw [Ocuvite With Lutein] PO DAILY CARMEN Quinapril HCl 40 mg 01/14/20 10:00 Accupril PO DAILY [facility] Sodium Chloride 1 syr 01/14/20 03:36 01/14/20 03:52 Saline Flush IVF 1 syr PRN PRN Administration To flush IV Sodium Chloride 1 syr 01/14/20 05:15 01/14/20 05:40 Saline Flush IVF 1 syr Q8HR CARMEN Administration Body Composition Height: 5 ft 6 in Weight: 187 lb 6.287 oz Body Mass Index (BMI): 30.2 Vital Signs Temperature: 97.5 F Pulse Rate: 88 Respiratory Rate: 24 Blood Pressure: 158/93 O2 Sat by Pulse Oximetry: 96 Physical Examination Appearance: Reports Well-appearing, Well-nourished, Obese and Other Ill-appearing: Mild Pain Distress: None Eyes: Reports EVGENY, EOMI, Conjunctiva clear, Right pupil size (EVGENY-A) and Left pupil size ENT: Reports Ears normal, Nose normal, Oropharynx normal, Rhinorrhea, Epistaxis, Erythema, Exudate, Dry mucosa and Other Neck: Supple (no current evidence of JVD at 45 deg no HJR at 45 deg) Respiratory: Reports Airway patent, Breath sounds clear, Breath sounds diminished and Respirations nonlabored; Denies Crackles, Rhonchi, Wheezes and Retractions Cardiovascular: Reports RRR, Pulses normal, No rub and No murmur GI/: Reports Soft, Nontender, No masses, Bowel sounds normal and No Organomegaly Musculoskeletal: Reports Normal strength, ROM intact, No edema, No calf tenderness and Limited ROM Skin: Reports Warm, Dry and Normal color Neurological: Reports Sensation intact, Motor intact, Reflexes intact, Cranial nerves intact, Alert and Oriented Psychiatric: Reports Affect appropriate and Mood appropriate Lab/Tests/Diagnostic Imaging Lab/Tests/Diagnostic Imaging: Lab Review 01/14/20 01/14/20 01/14/20 04:10 04:10 04:15 WBC 4.33 L RBC 5.33 Hgb 15.3 Hct 47.7 H MCV 89.5 MCH 28.7 MCHC 32.1 RDW Coeff of Robbie 13.9 Plt Count 234 Immature Gran % (Auto) 0.2 Neut % (Auto) 49.9 Lymph % (Auto) 38.8 [place] % (Auto) 4.8 Eos % (Auto) 5.1 Baso % (Auto) 1.2 Neut # (Auto) 2.2 Lymph # (Auto) 1.7 [place] # (Auto) 0.2 L Eos # (Auto) 0.2 Baso # (Auto) 0.1 Immature Gran # (Auto) 0.0 Puncture Site Lrad O2 Saturation 89.0 L ABG pH 7.465 H ABG pCO2 32.0 L ABG pO2 52.0 L* ABG HCO3 23 ABG Total CO2 24 ABG Base Excess -1 [place] Test + O2 Delivery Device Venturi mask Oxygen Liter Flow 8.00 FiO2 % 40.0 Sodium 139.9 Potassium 3.85 Chloride 106.7 Carbon Dioxide 23.0 Anion Gap 14.05 BUN 21.9 H Creatinine 0.67 Estimated GFR (MDRD) 108.00 BUN/Creatinine Ratio 32.68 Glucose 192.0 H Calcium 10.42 H Magnesium 2.21 Total Bilirubin 0.71 AST 37.7 H ALT 30.7 Alkaline Phosphatase 80.3 Total Creatine Kinase 339.8 H CK-MB (CK-2) 3.470 H CK-MB (CK-2) % 1.0200 Troponin I 0.047 NT-Pro-B Natriuret Pep 623.000 H Total Protein 8.24 H Albumin 4.53 Globulin 3.71 Albumin/Globulin Ratio 1.22 01/14/20 07:20 WBC RBC Hgb Hct MCV MCH MCHC RDW Coeff of Robbie Plt Count Immature Gran % (Auto) Neut % (Auto) Lymph % (Auto) [place] % (Auto) Eos % (Auto) Baso % (Auto) Neut # (Auto) Lymph # (Auto) [place] # (Auto) Eos # (Auto) Baso # (Auto) Immature Gran # (Auto) Puncture Site R rad O2 Saturation 98.0 ABG pH 7.436 ABG pCO2 34.9 L ABG pO2 98.0 ABG HCO3 23.5 ABG Total CO2 25 ABG Base Excess -1 [place] Test + O2 Delivery Device Vapotherm Oxygen Liter Flow FiO2 % 40.0 Sodium Potassium Chloride Carbon Dioxide Anion Gap BUN Creatinine Estimated GFR (MDRD) BUN/Creatinine Ratio Glucose Calcium Magnesium Total Bilirubin AST ALT Alkaline Phosphatase Total Creatine Kinase CK-MB (CK-2) CK-MB (CK-2) % Troponin I NT-Pro-B Natriuret Pep Total Protein Albumin Globulin Albumin/Globulin Ratio Orders Category Date Time Status ADMIT PATIENT INPATIENT .TO [facility] (MONITORED BED) ADMISSION 01/14/20 05:16 Active ABG DRAW REQUEST Stat CARDIO 01/14/20 05:51 Completed ABG DRAW REQUEST Stat CARDIO 01/14/20 07:33 Completed ECHOCARDIOGRAM 2D-M MODE Routine CARDIO 01/14/20 05:06 Ordered EKG-(ED ONLY) Stat CARDIO 01/14/20 03:36 Completed OXYGEN Routine CARDIO 01/14/20 08:01 Active VAPOTHERM Routine CARDIO 01/14/20 05:00 Completed ACTIVITY .BR with BRP CARE 01/14/20 05:05 Completed ACTIVITY .BR with BRP CARE 01/14/20 05:06 Active INTAKE & OUTPUT Q8HR CARE 01/14/20 05:06 Completed INTAKE & OUTPUT Q8HR CARE 01/14/20 05:10 Active Notify RT of Treatment ONCE CARE 01/14/20 05:51 Active Notify RT of Treatment ONCE CARE 01/14/20 07:33 Active TELEMETRY MONITORING TELE CARE 01/14/20 05:06 Active TELEMETRY MONITORING TELE CARE 01/14/20 05:16 Completed VITAL SIGNS Q8HR CARE 01/14/20 05:06 Active VITAL SIGNS Q8HR CARE 01/14/20 05:10 Completed WEIGH PATIENT 0600 CARE 01/14/20 05:06 Active CARDIAC DIET DIETARY 01/14/20 Breakfast Ordered FLUID RESTRICTION 1800 ML DIETARY 01/14/20 Breakfast Ordered ED IV/MEDIPORT/POWERPORT .ONCE EMERGENCY 01/14/20 03:36 Active ABG DAILY@0600 LAB 01/15/20 06:00 Ordered ABG DAILY@0600 LAB 01/16/20 06:00 Ordered ABG Stat LAB 01/14/20 04:15 Completed ARTERIAL BLOOD GAS [ABG] Stat LAB 01/14/20 07:20 Completed CBC W/ AUTO DIFF DAILY@0600 LAB 01/15/20 06:00 Ordered CBC W/ AUTO DIFF Stat LAB 01/14/20 04:10 Completed COMPREHENSIVE METABOLIC PANEL Stat LAB 01/14/20 04:10 Completed CREATINE KINASE Q10H LAB 01/14/20 13:15 Ordered CREATINE KINASE Q10H LAB 01/14/20 23:15 Ordered CREATINE KINASE Stat LAB 01/14/20 04:10 Completed MAGNESIUM Stat LAB 01/14/20 04:10 Completed NT-PROBNP Stat LAB 01/14/20 04:10 Completed TROPONIN I Q10H LAB 01/14/20 13:15 Ordered TROPONIN I Q10H LAB 01/14/20 23:15 Ordered TROPONIN I Stat LAB 01/14/20 04:10 Completed 0.9 % Sodium Chloride [Saline Flush] MEDS 01/14/20 03:36 Active 1 syr IVF PRN PRN 0.9 % Sodium Chloride [Saline Flush] MEDS 01/14/20 05:15 Active 1 syr IVF Q8HR Acetaminophen [Tylenol] MEDS 01/14/20 05:05 Active 650 mg PO Q4H PRN Aspirin [Aspirin EC] MEDS 01/14/20 10:00 Ordered 81 mg PO DAILYWM Azithromycin Inj [Zithromax] 500 mg MEDS 01/14/20 09:00 Active 0.9 % Sodium Chloride [Sodium Chloride] 250 ml IV DAILY Ca-D3-mag qw-oviw-yec-lay-bor [Calcium 600-D3 Plus ( MEDS 01/14/20 09:45 Ordered mag-zinc)] 1 each PO DAILY Carvedilol [Coreg] MEDS 01/14/20 22:00 Ordered 3.125 mg PO 0800,2200 Ceftriaxone/D5w 1 gm Premix [Rocephin 1 gm/50 ml D5w] MEDS 01/14/20 05:00 Active 1 gm in 50 ml IV DAILY Empaglifozin [Jardiance] MEDS 01/15/20 09:00 Ordered 10 mg PO DAILY Fluticasone Propionate [Flonase] MEDS 01/14/20 09:30 Ordered 2 spray FRANCISCO DAILY PRN Furosemide [Lasix Tab] MEDS 01/14/20 10:00 Ordered 40 mg PO DAILY Furosemide [Lasix] MEDS 01/14/20 17:00 Active 40 mg IVP BIDAC Furosemide [Lasix] MEDS 01/14/20 03:36 Discontinued 40 mg IVP ONCE STA Insulin Glargine,Hum.rec.anlog [Lantus] MEDS 01/14/20 21:00 Ordered DOSE unit SUBCUT BEDTIME Isosorbide Mononitrate [Imdur] MEDS 01/14/20 10:00 Ordered 30 mg PO DAILY Multivitamin [Multivitamin Tablet] MEDS 01/14/20 10:00 Ordered 1 tab PO DAILY Quinapril HCl [Accupril] MEDS 01/14/20 10:00 Ordered 40 mg PO DAILY dulaglutide [Trulicity] MEDS 01/21/20 09:00 Ordered 1.5 mg SQ WEEKLY omega-3 fatty acids-fish oil [Fish Oil] MEDS 01/14/20 09:30 Ordered 1 cap PO DAILY vit A,C and X-xudkmn-fwrltuoh [Ocuvite with Lutein] MEDS 01/15/20 09:00 Ordered 1 tab PO DAILY RESUSCITATION STATUS Routine OTHERS 01/14/20 05:05 Ordered CHEST, 1V AP ONLY Stat RADS 01/14/20 03:36 Completed Medications Generic Name Dose Route Start Last Admin Trade Name Freq PRN Reason Stop Dose Admin Acetaminophen 650 mg 01/14/20 05:05 Tylenol PO Q4H PRN Mild Pain Aspirin 81 mg 08/18/20 10:00 Aspirin Ec PO DAILYWM [facility] Carvedilol 3.125 mg 01/14/20 22:00 Coreg PO 0800,2200 [facility] Empagliflozin 10 mg 01/15/20 09:00 Jardiance PO DAILY [facility] Fluticasone Propionate 2 spray 01/14/20 09:30 Flonase FRANCISCO DAILY PRN Sinus congestion Furosemide 40 mg 01/14/20 17:00 Lasix IVP BIDAC CARMEN Furosemide 40 mg 01/14/20 10:00 Lasix Tab PO DAILY [facility] CEFTRIAXONE/D5W 1 GM PREMIX 1 gm in 50 mls @ 75 mls/hr 01/14/20 05:00 01/14/20 09:00 Rocephin 1 Gm/50 Ml D5w IV 01/17/20 04:59 Not Given DAILY [facility] Azithromycin 500 mg/ Sodium 250 mls @ 125 mls/hr 01/14/20 09:00 01/14/20 08:29 Chloride IV 01/17/20 08:59 125 mls/hr DAILY [facility] Administration Insulin Glargine unit 01/14/20 21:00 Lantus SUBCUT BEDTIME [facility] Isosorbide Mononitrate 30 mg 01/14/20 10:00 Imdur PO DAILY [facility] Multivitamins 1 tab 01/14/20 10:00 Multivitamin Tablet PO DAILY [facility] Non-Formulary Medication 1 cap 01/14/20 09:30 Vandemere-3 Fatty Acids-Fish Oil [Fish Oil] PO DAILY [facility] Non-Formulary Medication 1 each 01/14/20 09:45 Ca-D3-Mag Ip-Blrk-Kgc-Lay-Bor [Calcium 600-D3 Plus (Mag-Zinc)] PO DAILY [facility] Non-Formulary Medication 1.5 mg 01/21/20 09:00 Dulaglutide [Trulicity] SQ WEEKLY [facility] Non-Formulary Medication 1 tab 01/15/20 09:00 Vit A,C And J-Csmfvc-Wihxtrsc [Ocuvite With Lutein] PO DAILY CARMEN Quinapril HCl 40 mg 01/14/20 10:00 Accupril PO DAILY [facility] Sodium Chloride 1 syr 01/14/20 03:36 01/14/20 03:52 Saline Flush IVF 1 syr PRN PRN Administration To flush IV Sodium Chloride 1 syr 01/14/20 05:15 01/14/20 05:40 Saline Flush IVF 1 syr Q8HR CARMEN Administration Discontinued Medications Generic Name Dose Route Start Last Admin Trade Name Julianq PRN Reason Stop Dose Admin Furosemide 40 mg 01/14/20 03:36 01/14/20 03:52 Lasix IVP 01/14/20 03:37 40 mg ONCE STA Administration Assessment (1) Shortness of breath: Status: Acute Code(s): R06.02 - Shortness of breath SNOMED Code(s): 550727405 (2) Acute exacerbation of congestive heart failure: Status: Acute Code(s): I50.9 - Heart failure, unspecified SNOMED Code(s): 043347365 Qualifiers: Heart failure type: unspecified Qualified Code(s): I50.9 - Heart failure, unspecified (3) Pneumonia: Status: Acute Code(s): J18.9 - Pneumonia, unspecified organism SNOMED Code(s): 726582704 Plan Plan: Continue present therapy Echocardiogram Dr Cobb Review current meds and reconcile Follow up lab States has an apt with her New Furniture Mechanic at [facility] next month and plans on visiting her PCP in [place] after discharge from hospital
[2020-01-14] MEDS: ASPIRIN EC PO SCH (12:29)
[2020-01-14] MEDS: OMEGA-3 FISH OIL PO SCH (12:29)
[2020-01-14] MEDS: ACCUPRIL PO SCH (12:29)
[2020-01-14] MEDS: CALCIUM 500 + VIT D 5 MCG (200 IU) TABLET PO SCH (12:30)
[2020-01-14] MEDS: MULTIVITAMIN TABLET PO SCH (12:30)
[2020-01-14] MEDS: JARDIANCE PO SCH (12:30)
[2020-01-14] MEDS: IMDUR PO SCH (12:30)
[2020-01-14 13:00] LABS: MOLECULAR FLU A NEGATIVE BY NAAT (NEGATIVE); MOLECULAR FLU B NEGATIVE BY NAAT (NEGATIVE)
[2020-01-14] MEDS ORDERED: NON-FORMULARY MEDICATION (Dulaglutide [Trulicity] 1.5 MG) SUBCUT SCH (13:01)
--- NOTE | 2020-01-14 13:41 | ECHO2D ---
Date of Exam: 01/14/2020 Ordering Physician: JAIME Room #: 116 Reason for Echo: CHF, HTN, DM2, SOB M-Mode Normal Adult Results LV Dimensions Normal Adult Results AoV Opening excursions >1.6 >1.6 LVEDD-base- 3.5-5.8 5.8 Ao root dimensions 2.0-3.7 2.8 LVESD-base- 3.1-4.6 L. Atrium dimensions 1.9-3.8 4.7 Post. Wall thickness 0.8-1.1 1.1 IV septum (thickness) 0.7-1.2 1.2 Post. Wall excursion 0.72-1.3 0.4 Septal motion 0.5 Systolic motion R. Ventricular cavity 1.5-2.0 NORMAL LVEF 60% 40% Paradoxical septal wall motion NORMAL 2-D : 2-D M Mode Echocardiogram was performed using apical four chamber and left parasternal long and short axis views. Mitral, tricuspid and aortic valves appear to be normal. HYPOKINETIC LEFT VENTRICLE, ENLARGED LEFT VENTRICLE CAVITY. ENLARGED LEFT ATRIAL CAVITY. Left atrial cavity size and aortic root appear to be normal. There is no pericardial effusion. There is no thrombus noted in the left ventricle or left atrial cavity. No mitral valve prolapse noted. COLOR FLOW: Moderate mitral regurgitation M-MODE: MV: NORMAL AV: NORMAL TV: NORMAL PV: CHAMBER SIZE: ENLARGED LEFT ATRIAL AND LEFT VENTRICLE CAVITY WALL MOTION: HYPOKINETIC LEFT VENTRICLE PERICARDIUM: NORMAL INTERPRETATION: 1. LEFT VENTRICULAR HYPERTROPHY-BORDERLINE WITH ENLARGED LEFT ATRIAL CAVITY 2. HYPOKINETIC LEFT VENTRICLE WITH EJECTION FRACTION 40% 3. ENLARGED LEFT VENTRICLE CAVITY--BORDERLINE 4. MODERATE MITRAL REGURGITATION MTDD
[2020-01-14 13:50] LABS: CREATINE KINASE 207.8 U/L (30-135)
[2020-01-14 14:03] LABS: TROPONIN I 0.047 ng/ml (0.0000-0.120)
[2020-01-14 14:07] LABS: CREATINE KINASE MB 2.38 ng/ml (0.0-2.38)
[2020-01-14] MEDS: LASIX IVP SCH (16:52)
[2020-01-14] MEDS ORDERED: FIORICET PO PRN (17:07)
[2020-01-14] MEDS: COREG PO SCH (21:53)
[2020-01-14] MEDS: LANTUS SUBCUT SCH (21:53)
[2020-01-14 23:31] LABS: CREATINE KINASE 200.5 U/L (30-135)
[2020-01-14 23:44] LABS: TROPONIN I 0.045 ng/ml (0.0000-0.120)
[2020-01-14 23:46] LABS: CREATINE KINASE MB 2.02 ng/ml (0.0-2.38)
[2020-01-15 05:10] LABS: BASOPHILS % (AUTO) 0.9 % (0.0-3.0); EOSINOPHILS # (AUTO) 0.2 K/ul (0.0-0.7); EOSINOPHILS % (AUTO) 4.4 % (0.0-7.0); HEMOGLOBIN 13.1 g/dl (12.0-16.0); IMMATURE GRANULOCYTE % (AUTO) 0.2 % (0.0-5.0); LYMPHOCYTES # (AUTO) 1.6 K/uL (0.60-3.4); LYMPHOCYTES % (AUTO) 33.9 (10.0-50.0); MEAN CORPUSCULAR HEMOGLOBIN 29.4 pg (27.0-31.0); MEAN CORPUSCULAR HGB CONC 32.6 (31.8-35.4); MEAN CORPUSCULAR VOLUME 90.1 fl (81.0-99.0); MONOCYTES # (AUTO) 0.4 K/uL (0.4-2.0); NEUTROPHILS # (AUTO) 2.4 K/ul (2.0-6.9); NEUTROPHILS % (AUTO) 51.6 % (42.2-75.2); PLATELET COUNT 211 10^3/uL (140-440); RDW COEFFICIENT OF VARIATION 14.2 % (11.6-14.8); RED BLOOD COUNT 4.46 10^6/ul (4.20-5.40); WHITE BLOOD COUNT 4.57 K/ul (4.6-10.2)
[2020-01-15 05:15] LABS: HEMATOCRIT 40.2 % (37.0-47.0)
[2020-01-15 05:17] LABS: ALANINE AMINOTRANSFERASE 30.4 U/L (0-35); ALBUMIN 3.74 g/dL (3.5-5.0); ALKALINE PHOSPHATASE 59.7 U/L (53-141); ASPARTATE AMINO TRANSFERASE 38.6 U/L (14-36); BILIRUBIN,TOTAL 0.9 mg/dL (0.2-1.3); BLOOD UREA NITROGEN 20.3 mg/dL (7-17); CALCIUM 9.02 mg/dL (8.4-10.2); CHLORIDE 104.4 mmol/L (98-107); CREATININE 0.66 mg/dL (0.60-1.30); GLUCOSE 89.4 mg/dL (74-106); POTASSIUM 3.37 mmol/L (3.5-5.1); SODIUM 140.5 mmol/L (134.5-145); TOTAL PROTEIN 6.74 g/dL (6.3-8.2)
[2020-01-15 05:29] LABS: CARBON DIOXIDE 32.9 mmol/L (22-30.0)
[2020-01-15] MEDS: LASIX IVP SCH ×2 (05:36→17:19)
--- NOTE | 2020-01-15 07:39 | PCM.PROG ---
Date Seen by Provider: 01/15/20 Time Seen by Provider: 07:35 Subjective: she states she is feeling much better---denies any sob or chest pain--wants to go home Objective: Vitals: T=97.6 F, P=81, R=16, SL=645/72, SPO2=98 HEENT: [peelr, eomi, no jvd] Neck: [no jvd] Lungs: [clear] CVS: [rrr] Abdomen: [soft nt, bs+] Extremities: [no edema] Neurological: [grossly intact--no focal weakness] Skin: [no rashes] Lab/Tests/Diagnostic Imaging: [echo noted with ej 40%--labs pending] (1) Shortness of breath: Status: Acute Code(s): R06.02 - Shortness of breath SNOMED Code(s): 577372039 (2) Acute exacerbation of congestive heart failure: Status: Acute Code(s): I50.9 - Heart failure, unspecified SNOMED Code(s): 065138077 (3) Pneumonia: Status: Acute Code(s): J18.9 - Pneumonia, unspecified organism SNOMED Code(s): 371380605 Plan: awaiting dr pierre assessment after echo--recheck cxr
[2020-01-15] MEDS: OMEGA-3 FISH OIL PO SCH (08:04)
[2020-01-15] MEDS: ASPIRIN EC PO SCH (08:05)
[2020-01-15] MEDS: CALCIUM 500 + VIT D 5 MCG (200 IU) TABLET PO SCH (08:05)
[2020-01-15] MEDS: JARDIANCE PO SCH (08:05)
[2020-01-15] MEDS: MULTIVITAMIN TABLET PO SCH (08:05)
[2020-01-15] MEDS: COREG PO SCH ×2 (08:06→21:53)
[2020-01-15] MEDS: ACCUPRIL PO SCH (08:06)
[2020-01-15] MEDS: ROCEPHIN 1 GM/50 ML D5W 1 GM/50 ML BAG IV SCH (08:06)
[2020-01-15] MEDS: IMDUR PO SCH (08:06)
[2020-01-15] MEDS: VIT A C AND E LUTEIN MINERALS PO SCH (08:20)
--- NOTE | 2020-01-15 08:29 | DI ---
EXAM: Chest one view HISTORY: Congestive heart failure/pneumonia COMPARISON: 01/14/2020 TECHNIQUE: Single view of the chest was performed FINDINGS: Heart top normal in size. Mediastinal contour unchanged. No visible pneumothorax. Possi ble pulmonary vascular congestion. Possible mild pulmonary vascular congestion. Improved left perih ilar and basilar consolidation IMPRESSION: 1. Peripheral perihilar and basilar consolidation, may represent improving pneumonia. 2. Possible pulmonary vascular congestion
[2020-01-15] MEDS ORDERED: JARDIANCE PO SCH (09:00)
[2020-01-15] MEDS: ZITHROMAX 500 MG in SODIUM CHLORIDE 250 ML IV SCH (09:04)
[2020-01-15] MEDS ORDERED: K-DUR PO STA (17:14)
[2020-01-15] MEDS: LANTUS SUBCUT SCH (21:52)
[2020-01-16 05:28] LABS: BASOPHILS % (AUTO) 0.9 % (0.0-3.0); EOSINOPHILS # (AUTO) 0.3 K/ul (0.0-0.7); EOSINOPHILS % (AUTO) 5.9 % (0.0-7.0); HEMATOCRIT 40.5 % (37.0-47.0); IMMATURE GRANULOCYTE % (AUTO) 0.2 % (0.0-5.0); LYMPHOCYTES # (AUTO) 1.5 K/uL (0.60-3.4); LYMPHOCYTES % (AUTO) 33.9 (10.0-50.0); MEAN CORPUSCULAR HEMOGLOBIN 29.1 pg (27.0-31.0); MEAN CORPUSCULAR HGB CONC 32.1 (31.8-35.4); MEAN CORPUSCULAR VOLUME 90.8 fl (81.0-99.0); MONOCYTES # (AUTO) 0.5 K/uL (0.4-2.0); MONOCYTES % (AUTO) 10.2 (0-10); NEUTROPHILS # (AUTO) 2.2 K/ul (2.0-6.9); NEUTROPHILS % (AUTO) 48.9 % (42.2-75.2); PLATELET COUNT 204 10^3/uL (140-440); RDW COEFFICIENT OF VARIATION 14.1 % (11.6-14.8); RED BLOOD COUNT 4.46 10^6/ul (4.20-5.40); WHITE BLOOD COUNT 4.43 K/ul (4.6-10.2)
[2020-01-16] MEDS: LASIX IVP SCH (05:45)
[2020-01-16 05:54] LABS: ALANINE AMINOTRANSFERASE 40.5 U/L (0-35); ALBUMIN 3.82 g/dL (3.5-5.0); ASPARTATE AMINO TRANSFERASE 41.6 U/L (14-36); BILIRUBIN,TOTAL 0.77 mg/dL (0.2-1.3); BLOOD UREA NITROGEN 19.8 mg/dL (7-17); CALCIUM 9.14 mg/dL (8.4-10.2); CARBON DIOXIDE 32.1 mmol/L (22-30.0); CHLORIDE 104.9 mmol/L (98-107); CREATININE 0.7 mg/dL (0.60-1.30); POTASSIUM 3.65 mmol/L (3.5-5.1); SODIUM 139.7 mmol/L (134.5-145); TOTAL PROTEIN 6.77 g/dL (6.3-8.2)
[2020-01-16] MEDS: IMDUR PO SCH (09:18)
[2020-01-16] MEDS: COREG PO SCH (09:18)
[2020-01-16] MEDS: ASPIRIN EC PO SCH (09:19)
[2020-01-16] MEDS: JARDIANCE PO SCH (09:19)
[2020-01-16] MEDS: OMEGA-3 FISH OIL PO SCH (09:19)
[2020-01-16] MEDS: MULTIVITAMIN TABLET PO SCH (09:19)
[2020-01-16] MEDS: ACCUPRIL PO SCH (09:19)
[2020-01-16] MEDS: CALCIUM 500 + VIT D 5 MCG (200 IU) TABLET PO SCH (09:19)
[2020-01-16] MEDS: ROCEPHIN 1 GM/50 ML D5W 1 GM/50 ML BAG IV SCH (09:20)
[2020-01-16] MEDS: VIT A C AND E LUTEIN MINERALS PO SCH (09:24)
[2020-01-16] MEDS: ZITHROMAX 500 MG in SODIUM CHLORIDE 250 ML IV SCH (10:40)
[2020-01-16 14:02] VITALS: BP 94/61; TEMP 97
--- NOTE | 2020-01-16 20:13 | PCM.DC ---
Final Diagnosis: CHF Pneumonia (1) Shortness of breath: Status: Acute Code(s): R06.02 - Shortness of breath SNOMED Code(s): 805804654 (2) Acute exacerbation of congestive heart failure: Status: Acute Code(s): I50.9 - Heart failure, unspecified SNOMED Code(s): 947541520 Qualifiers: Heart failure type: unspecified Qualified Code(s): I50.9 - Heart failure, unspecified (3) Pneumonia: Status: Acute Code(s): J18.9 - Pneumonia, unspecified organism SNOMED Code(s): 684843789 Qualifiers: Laterality: right Lung location: lower lobe of lung Pneumonia type: due to unspecified organism Qualified Code(s): J18.1 - Lobar pneumonia, unspecified organism Medications at Discharge: Ambulatory Orders Medication Instructions Recorded aspirin 81 mg PO DAILYWM 03/17/15 furosemide 40 mg PO DAILY 03/17/15 quinapril 40 mg PO DAILY 03/17/15 carvedilol 3.125 mg PO 0800,2200 05/27/16 Fish Oil 1 cap PO DAILY 01/17/17 isosorbide mononitrate 30 mg PO DAILY 09/08/17 Ca-D3-mag lh-wpyd-bkk-lay-bor 1 ea PO DAILY 05/15/18 [Calcium 600+D3 Plus Caplet] dulaglutide [Trulicity] 1.5 mg SQ WEEKLY 07/17/18 insulin glargine [Lantus] 50 units SQ BEDTIME vial 10/03/18 fluticasone propionate [Flonase 2 spray NS DAILY PRN 06/08/19 Allergy Relief] zpyxcdp-jvsqeoyqijolq-lipkljab 1 tab PO Q4-6H PRN 01/14/20 [Excedrin Migraine] atorvastatin 10 mg PO DAILY 01/14/20 empagliflozin [Jardiance] 25 mg PO QAM 01/14/20 multivitamin 1 tab PO DAILY 01/14/20 vit A,C and F-xhtaxo-vlwlcmzr 1 tab PO DAILY 01/14/20 [Ocuvite with Lutein]
[2020-01-21] MEDS ORDERED: NON-FORMULARY MEDICATION (Dulaglutide [Trulicity] 1.5 MG) SUBCUT SCH (09:00)
--- NOTE | 2020-01-28 14:04 | DS ---
DATE OF SERVICE: 01/16/20 ADMITTING DIAGNOSES: 1. SHORTNESS OF BREATH 2. PNEUMONIA 3. CONGESTIVE HEART FAILURE FINAL DIAGNOSES: 1. CONGESTIVE HEART FAILURE, IMPROVED 2. LOBAR PNEUMONIA, IMPROVED 3. DYSPNEA IMPROVED ENTERING STATEMENT: This 64-year-old black female patient was in the emergency room on the date of admission for shortness of breath, awakened from sleep. This started approximately 0030 hrs. Symptoms worsened, were constant and therefore she was brought to the emergency room. Initial impression is that it appeared that the patient was having possibly exacerbation of COPD vs pneumonia. Imaging studies were obtained revealing suspicious of a lobar pneumonia involving the left-sided bronchial pneumonia. The patient's chest x-ray showed central vascular prominence. The patient was therefore treated appropriately in the emergency room, stabilized and admitted to the hospital floor for further evaluation and treatment. All appropriate diagnostic and lab studies were obtained as outlined in the hospital chart. Medications were administered including IV Lasix. IV antibiotics including Rocephin and Azithromycin were administered daily. The patient made progress in improvement and by the morning of discharge, the patient was feeling much better and was adamant about being released to home. Followup chest x-ray did reveal evidence of improving pneumonia with pulmonary vascular congestion improving. At the time of discharge examination the patient was oriented times three. She was in no acute distress. Her heart rate was within normal limits and her lungs were clear on auscultation in all mcgee. She is therefore discharged home in stable improving condition with instructions to followup with her primary care physician as indicated in the chart. If she should have any further problems before followup visit she should return to the emergency room. She has been given a prescription for Ceftin to take 500 mg b.i.d. for 5 days and Zithromax 250 mg daily for 3 days. MTDD
== END 2020-01-16 14:53 | disposition home or self-care (01) | DRG 291 ==
LOC: ED 03:01 → MEDSURG B 05:01
PROVIDERS: ADMIT Family Medicine; ATTEND Emergency Medicine